=== PATIENT | male | born 1985 | race African-American/Black ===

== ENCOUNTER 2018-10-31 11:20 | Inpatient (IN) | payer OTHER ==
[2018-10-31] VITALS (8 sets, daily range): BP systolic 120–152; BP diastolic 54–108
[~2018-10-31] VITALS: Ht 177.8 cm; Wt 78.5 kg
[2018-10-31] MEDS ORDERED: IV NORMAL SALINE 1000ML BAG 1,000 ML IV ONE (12:00)
[2018-10-31] MEDS ORDERED: fentaNYL PF VIAL 100 MCG/2 ML VIAL IV ONE (12:00)
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
[2018-10-31 12:21] LABS: BASO # 0.1 x10^3/uL (0.0-0.2); BASO % 1 % (0-3); EOS # 0.1 x10^3/uL (0.0-0.7); EOS % 1 % (0-3); HEMATOCRIT 47.8 % (39.0-53.0); LYMPH # 1.7 x10^3/uL (1.0-4.8); LYMPH % 17 % (24-48); MEAN CORPUSCULAR HEMOGLOBIN 27 pg (25-35); MEAN CORPUSCULAR HGB CONC 34 g/dL (31-37); MEAN CORPUSCULAR VOLUME 81 fL (79-100); MONO # 0.8 x10^3/uL (0.0-1.1); MONO % 8 % (0-9); NEUT # 7.3 x10^3uL (1.8-7.7); NEUT % 74 % (31-73); PLATELET COUNT 272 x10^3/uL (140-400); RED BLOOD COUNT 5.91 x10^6/uL (4.30-5.70); RED CELL DISTRIBUTION WIDTH 13.9 % (11.5-14.5)
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
[2018-10-31 12:29] LABS: CALCIUM 9.5 mg/dL (8.5-10.1); CREATININE 0.9 mg/dL (0.7-1.3); GFR 116.9; POTASSIUM 3.9 mmol/L (3.5-5.1)
[2018-10-31 12:35] LABS: ALBUMIN 3.7 g/dL (3.4-5.0); ALBUMIN/GLOBULIN RATIO 0.9 (1.0-1.7); TOTAL PROTEIN 7.6 g/dL (6.4-8.2)
--- NOTE | 2018-10-31 13:29 | PDOC1 ---
History and Physical Date of Admission Date of Admission DATE: 10/31/18 TIME: 13:26 Identification/Chief Complaint Chief Complaint 33 year old male who presents with a worsening infection to his left second digit. The patient had fractured his finger and had a laceration. He then smoked K2 yesterday and tried to chew off his finger. He now has erythema and swelling to that digit with a loss of the suture material. He is unable to bend his finger and has pain extending up into his hand. xrays c/w fx and deep tissue. tendon involvement likely Past Medical History Past Medical History Past Medical History Past Medical History Past Medical History: Asthma, Hypertension Past Surgical History: No Surgical History Alcohol Use: None Drug Use: Other Social History Narrative: k2 family hx htn Chief Complaint Chief Complaint: FINGER INJURY Hepatobiliary: No pertinent hx Psych: Addictions Past Surgical History Past Surgical History: Appendectomy Family History Family History: Alcohol Abuse, Drug Abuse, Hypertension Social History Smoke: Quit ALCOHOL: none Drugs: Marijuana Current Medications Current Medications Current Medications Sodium Chloride 1,000 ml @ 1,000 mls/hr 1X ONCE IV Last administered on 10/31/18at 12:29; Start 10/31/18 at 12:00; Stop 10/31/18 at 12:59; Status DC Fentanyl Citrate (Fentanyl 2ml Vial) 50 mcg 1X ONCE IV Last administered on 10/31/18at 12:30; Start 10/31/18 at 12:00; Stop 10/31/18 at 12:01; Status DC Ampicillin Sodium/ Sulbactam Sodium 3 gm/Sodium Chloride 100 ml @ 200 mls/hr 1X ONCE IV ; Start 10/31/18 at 13:30; Stop 10/31/18 at 13:59 Ondansetron HCl (Zofran) 4 mg PRN Q8HRS PRN IV NAUSEA/VOMITING; Start 10/31/18 at 13:30; Stop 11/01/18 at 13:29 Morphine Sulfate (Morphine Sulfate) 4 mg PRN Q2HR PRN IV SEVERE PAIN; Start 10/31/18 at 13:30; Stop 11/01/18 at 13:29 Fentanyl Citrate (Fentanyl 2ml Vial) 50 mcg PRN Q1HR PRN IV SEVERE PAIN; Start 10/31/18 at 13:30; Stop 11/01/18 at 13:29 Sodium Chloride 1,000 ml @ 125 mls/hr Q8H IV ; Start 10/31/18 at 13:18; Stop 11/01/18 at 13:17; Status UNV Allergies Allergies: Coded Allergies: No Known Drug Allergies (Unverified , 10/31/18) ROS Review of System Review of Systems Review of Systems Constitutional: Denies fever or chills [] Respiratory: Denies cough or shortness of breath [] Cardiovascular: No additional information not addressed in HPI [] GI: Denies abdominal pain, nausea, vomiting, bloody stools or diarrhea [] : Denies dysuria or hematuria [] Musculoskeletal: See history of present illness Integument: Denies rash or skin lesions [] Neurologic: Denies headache, focal weakness or sensory changes [] Endocrine: Denies polyuria or polydipsia [] 14 pt systems were reviewed and found to be within normal limits, except as documented PSYCHOLOGICAL ROS: YES: Hallucinations Cardiovascular: No Chest Pain, No Palpitations, No Orthopnea, No Paroxysmal Noc. Dyspnea, No Edema, No Lt Headedness, No Other Gastrointestinal: No Nausea, No Vomiting, No Abdominal Pain, No Diarrhea, No Constipation, No Melena, No Hematochezia, No Other Musculoskeletal: Yes Joint Pain, Yes Joint Stiffness, Yes Joint Swelling Physical Exam Physical Exam Physical Exam Physical Exam Constitutional: Well developed, well nourished,mod acute distress, non-toxic appearance. [] Cardiovascular:Heart rate regular rhythm, no murmur [] Lungs & Thorax: Bilateral breath sounds clear to auscultation [] Abdomen: Bowel sounds normal, soft, no tenderness, no masses, no pulsatile masses. [] Skin: Warm, dry, no erythema, no rash. [] Back: No tenderness, no CVA tenderness. [] Extremities: tenderness to left second digit extending into his hand, extension and flexion are decreased, moderate edema and erythema, the laceration is gaping open with removal of skin from the patient biting [] Neurologic: Alert and oriented X 3, normal motor function, normal sensory function, no focal deficits noted. [] Psychologic: Affect normal, judgement poor, mood normal. [] General: Alert, Oriented X3, Cooperative, moderate distress HEENT: Atraumatic, PERRLA, EOMI, Mucous membr. moist/pink Lungs: Clear to auscultation, Normal air movement Heart: RRR, no thrills, no gallops Breasts: Not examined Abdomen: Normal bowel sounds, Soft Rectal Exam: not examined Neuro: Normal speech, Cranial nerves 3-12 NL Psych/Mental Status: Mental status NL, Mood NL Vitals Vitals Vital Signs Date Time Temp Pulse Resp B/P (MAP) Pulse Ox O2 Delivery O2 Flow Rate FiO2 10/31/18 12:30 20 99 Room Air 10/31/18 11:38 98.7 83 160/103 (122) 98.7 Labs Labs Laboratory Tests Test 10/31/18 12:05 White Blood Count 10.0 x10^3/uL (4.0-11.0) Red Blood Count 5.91 x10^6/uL (4.30-5.70) Hemoglobin 16.0 g/dL (13.0-17.5) Hematocrit 47.8 % (39.0-53.0) Mean Corpuscular Volume 81 fL (79-100) Mean Corpuscular Hemoglobin 27 pg (25-35) Mean Corpuscular Hemoglobin Concent 34 g/dL (31-37) Red Cell Distribution Width 13.9 % (11.5-14.5) Platelet Count 272 x10^3/uL (140-400) Neutrophils (%) (Auto) 74 % (31-73) Lymphocytes (%) (Auto) 17 % (24-48) Monocytes (%) (Auto) 8 % (0-9) Eosinophils (%) (Auto) 1 % (0-3) Basophils (%) (Auto) 1 % (0-3) Neutrophils # (Auto) 7.3 x10^3uL (1.8-7.7) Lymphocytes # (Auto) 1.7 x10^3/uL (1.0-4.8) Monocytes # (Auto) 0.8 x10^3/uL (0.0-1.1) Eosinophils # (Auto) 0.1 x10^3/uL (0.0-0.7) Basophils # (Auto) 0.1 x10^3/uL (0.0-0.2) Sodium Level 138 mmol/L (136-145) Potassium Level 3.9 mmol/L (3.5-5.1) Chloride Level 102 mmol/L (98-107) Carbon Dioxide Level 27 mmol/L (21-32) Anion Gap 9 (6-14) Blood Urea Nitrogen 13 mg/dL (8-26) Creatinine 0.9 mg/dL (0.7-1.3) Estimated GFR (Cockcroft-Gault) 116.9 BUN/Creatinine Ratio 14 (6-20) Glucose Level 89 mg/dL (70-99) Calcium Level 9.5 mg/dL (8.5-10.1) Total Bilirubin 1.0 mg/dL (0.2-1.0) Aspartate Amino Transf (AST/SGOT) 22 U/L (15-37) Alanine Aminotransferase (ALT/SGPT) 18 U/L (16-63) Alkaline Phosphatase 55 U/L (46-116) Total Protein 7.6 g/dL (6.4-8.2) Albumin 3.7 g/dL (3.4-5.0) Albumin/Globulin Ratio 0.9 (1.0-1.7) Laboratory Tests Test 10/31/18 12:05 White Blood Count 10.0 x10^3/uL (4.0-11.0) Red Blood Count 5.91 x10^6/uL (4.30-5.70) Hemoglobin 16.0 g/dL (13.0-17.5) Hematocrit 47.8 % (39.0-53.0) Mean Corpuscular Volume 81 fL (79-100) Mean Corpuscular Hemoglobin 27 pg (25-35) Mean Corpuscular Hemoglobin Concent 34 g/dL (31-37) Red Cell Distribution Width 13.9 % (11.5-14.5) Platelet Count 272 x10^3/uL (140-400) Neutrophils (%) (Auto) 74 % (31-73) Lymphocytes (%) (Auto) 17 % (24-48) Monocytes (%) (Auto) 8 % (0-9) Eosinophils (%) (Auto) 1 % (0-3) Basophils (%) (Auto) 1 % (0-3) Neutrophils # (Auto) 7.3 x10^3uL (1.8-7.7) Lymphocytes # (Auto) 1.7 x10^3/uL (1.0-4.8) Monocytes # (Auto) 0.8 x10^3/uL (0.0-1.1) Eosinophils # (Auto) 0.1 x10^3/uL (0.0-0.7) Basophils # (Auto) 0.1 x10^3/uL (0.0-0.2) Sodium Level 138 mmol/L (136-145) Potassium Level 3.9 mmol/L (3.5-5.1) Chloride Level 102 mmol/L (98-107) Carbon Dioxide Level 27 mmol/L (21-32) Anion Gap 9 (6-14) Blood Urea Nitrogen 13 mg/dL (8-26) Creatinine 0.9 mg/dL (0.7-1.3) Estimated GFR (Cockcroft-Gault) 116.9 BUN/Creatinine Ratio 14 (6-20) Glucose Level 89 mg/dL (70-99) Calcium Level 9.5 mg/dL (8.5-10.1) Total Bilirubin 1.0 mg/dL (0.2-1.0) Aspartate Amino Transf (AST/SGOT) 22 U/L (15-37) Alanine Aminotransferase (ALT/SGPT) 18 U/L (16-63) Alkaline Phosphatase 55 U/L (46-116) Total Protein 7.6 g/dL (6.4-8.2) Albumin 3.7 g/dL (3.4-5.0) Albumin/Globulin Ratio 0.9 (1.0-1.7) Images Images EXAM: Left hand, 3 views. HISTORY: Bite. COMPARISON: None. FINDINGS: 3 views of the left hand are obtained. There is a comminuted fracture of the distal aspect of the second distal phalanx. There is also a fracture involving the base of the second proximal phalanx with small adjacent displaced fracture fragment overlying the second metacarpal phalangeal joint. The donor site may be from the second metacarpal head. There is second phalanx soft tissue deformity likely due to a laceration. No radiodense foreign body is seen. IMPRESSION: 1. Comminuted fracture of the second distal phalanx. 2. Displaced fracture of the base of the second proximal phalanx with small fracture fragment overlying the palmar aspect of the second metatarsal phalangeal joint, possibly from the second metacarpal head. Electronically signed by: Lisseth Andrade MD (10/31/2018 12:16 PM) [place] [id number] DICTATED and SIGNED BY: LISSETH ANDRADE MD DATE: 10/31/18 1216 VTE Prophylaxis Ordered VTE Prophylaxis Devices: Yes VTE Pharmacological Prophylaxi: Yes Assessment/Plan Assessment/Plan IMPRESSION: 1. Comminuted fracture of the second distal phalanx. 2. Displaced fracture of the base of the second proximal phalanx with small fracture fragment overlying the palmar aspect of the second metatarsal phalangeal joint, possibly from the second metacarpal head. 3. ACUTE tenosynovitis plan admit ortho consult iv antibiotics ID CONSULT dvt prophylaxis td booster given at [facility] yesterday 73 min pt exam, chart review, > 50% of time spent with exam, chart review, pt care coordination at risk for loss of digit BREANNA ROCHE MD Oct 31, 2018 13:29
[2018-10-31] MEDS ORDERED: ONDANSETRON PF 4 MG/2 ML VIAL. IV PRN ×3 (13:30→13:45)
[2018-10-31] MEDS ORDERED: fentaNYL PF VIAL 100 MCG/2 ML VIAL IV PRN ×4 (13:30→13:45)
[2018-10-31] MEDS ORDERED: AMPICILLIN/SULBACTAM 3 GM in IV NORMAL SALINE 100ML 100 ML IV ONE ×2 (13:30→18:15)
[2018-10-31] MEDS ORDERED: IV RINGERS,LACTATED 1000ML 1,000 ML IV SCH ×2 (13:31)
[2018-10-31] MEDS ORDERED: HYDROmorphone 2 MG/ML VIAL IV PRN (13:45)
[2018-10-31] MEDS ORDERED: MORPHINE SULFATE 2 MG/ML VIAL. IV PRN ×2 (13:45)
[2018-10-31] MEDS ORDERED: LIDOCAINE 1% PF 2 ML VIAL. ID PRN ×2 (13:45)
[2018-10-31] MEDS ORDERED: PROCHLORPERAZINE 10 MG/2 ML VIAL. IV PRN (13:45)
[2018-10-31] MEDS: MORPHINE SULFATE 4 MG/ML VIAL. IV PRN (15:05)
[2018-10-31] MEDS: IV NORMAL SALINE 1000ML BAG 1,000 ML IV SCH ×2 (15:06→21:18)
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
[2018-10-31] MEDS ORDERED: LIDOCAINE 2% PF 5 ML VIAL. ONE (16:00)
[2018-10-31] MEDS ORDERED: PROPOFOL 20 ML IV ONE (16:00)
[2018-10-31] MEDS ORDERED: fentaNYL PF VIAL 100 MCG/2 ML VIAL ONE ×3 (16:01→19:10)
[2018-10-31] MEDS ORDERED: MIDAZOLAM HCL/PF 2 MG/2 ML VIAL. ONE (17:34)
[2018-10-31] MEDS ORDERED: ONDANSETRON PF 4 MG/2 ML VIAL. ONE (17:57)
[2018-10-31] MEDS ORDERED: DEXAMETHASONE SOD PHOS 4 MG/ML VIAL ONE (17:57)
[2018-10-31] MEDS ORDERED: KETOROLAC 30 MG/ML INJ FOR OR. INJ ONE (17:57)
[2018-10-31] MEDS ORDERED: PIPERACILLIN/TAZOBACTAM 3.375 GM in IV NORMAL SALINE 50ML 50 ML IV SCH (18:30)
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
[2018-10-31] MEDS: fentaNYL PF VIAL 100 MCG/2 ML VIAL IV PRN ×2 (19:13→19:24)
[2018-10-31] MEDS ORDERED: HYDROmorphone 2 MG/ML VIAL ONE (19:27)
[2018-10-31] MEDS ORDERED: PROCHLORPERAZINE 10 MG/2 ML VIAL. ONE (19:29)
[2018-10-31] MEDS: PROCHLORPERAZINE 10 MG/2 ML VIAL. IV PRN ×2 (19:32→19:44)
[2018-10-31] MEDS: HYDROmorphone 2 MG/ML VIAL IV PRN ×3 (19:33→20:03)
[2018-11-01] VITALS (7 sets, daily range): BP systolic 120–153; BP diastolic 78–91
[2018-11-01] MEDS: PIPERACILLIN/TAZOBACTAM 3.375 GM in IV NORMAL SALINE 50ML 50 ML IV SCH ×4 (00:14→18:00)
[2018-11-01] MEDS: IV NORMAL SALINE 1000ML BAG 1,000 ML IV SCH (04:32)
[2018-11-01] MEDS: MORPHINE SULFATE 4 MG/ML VIAL. IV PRN (06:04)
[2018-11-01] MEDS: ENOXAPARIN 40 MG/0.4 ML SYRINGE. SQ SCH (09:14)
[2018-11-01 09:43] LABS: CALCIUM 8.9 mg/dL (8.5-10.1); CREATININE 0.9 mg/dL (0.7-1.3); GFR 116.9; POTASSIUM 3.9 mmol/L (3.5-5.1)
[2018-11-01 09:44] LABS: BASO % 0 % (0-3); EOS # 0.1 x10^3/uL (0.0-0.7); EOS % 0 % (0-3); HEMATOCRIT 42.8 % (39.0-53.0); HEMOGLOBIN 14.5 g/dL (13.0-17.5); LYMPH # 1.4 x10^3/uL (1.0-4.8); LYMPH % 11 % (24-48); MEAN CORPUSCULAR HEMOGLOBIN 27 pg (25-35); MEAN CORPUSCULAR HGB CONC 34 g/dL (31-37); MEAN CORPUSCULAR VOLUME 81 fL (79-100); MONO # 0.7 x10^3/uL (0.0-1.1); MONO % 6 % (0-9); NEUT # 10.3 x10^3uL (1.8-7.7); NEUT % 82 % (31-73); PLATELET COUNT 248 x10^3/uL (140-400); RED BLOOD COUNT 5.28 x10^6/uL (4.30-5.70); RED CELL DISTRIBUTION WIDTH 13.8 % (11.5-14.5); WHITE BLOOD COUNT 12.6 x10^3/uL (4.0-11.0)
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
--- NOTE | 2018-11-01 14:16 | PDOC ---
Infectious Disease Note Vital Sign Vital Signs Vital Signs Date Time Temp Pulse Resp B/P (MAP) Pulse Ox O2 Delivery O2 Flow Rate FiO2 11/01/18 11:00 97.7 83 18 129/90 (103) 98 Room Air 97.7 10/31/18 19:00 8 Labs Lab Laboratory Tests Test 11/01/18 08:55 White Blood Count 12.6 x10^3/uL (4.0-11.0) Red Blood Count 5.28 x10^6/uL (4.30-5.70) Hemoglobin 14.5 g/dL (13.0-17.5) Hematocrit 42.8 % (39.0-53.0) Mean Corpuscular Volume 81 fL (79-100) Mean Corpuscular Hemoglobin 27 pg (25-35) Mean Corpuscular Hemoglobin Concent 34 g/dL (31-37) Red Cell Distribution Width 13.8 % (11.5-14.5) Platelet Count 248 x10^3/uL (140-400) Neutrophils (%) (Auto) 82 % (31-73) Lymphocytes (%) (Auto) 11 % (24-48) Monocytes (%) (Auto) 6 % (0-9) Eosinophils (%) (Auto) 0 % (0-3) Basophils (%) (Auto) 0 % (0-3) Neutrophils # (Auto) 10.3 x10^3uL (1.8-7.7) Lymphocytes # (Auto) 1.4 x10^3/uL (1.0-4.8) Monocytes # (Auto) 0.7 x10^3/uL (0.0-1.1) Eosinophils # (Auto) 0.1 x10^3/uL (0.0-0.7) Basophils # (Auto) 0.0 x10^3/uL (0.0-0.2) Sodium Level 139 mmol/L (136-145) Potassium Level 3.9 mmol/L (3.5-5.1) Chloride Level 104 mmol/L (98-107) Carbon Dioxide Level 29 mmol/L (21-32) Anion Gap 6 (6-14) Blood Urea Nitrogen 9 mg/dL (8-26) Creatinine 0.9 mg/dL (0.7-1.3) Estimated GFR (Cockcroft-Gault) 116.9 Glucose Level 130 mg/dL (70-99) Calcium Level 8.9 mg/dL (8.5-10.1) Micro Microbiology 10/31/18 Blood Culture - Preliminary, Resulted NO GROWTH AFTER 1 DAY Objective Assessment Left index finger infection s/p I and D Left index finger distal phalanx communited fracture Drug use HTN Plan Plan of Care zosyn check cultures supportive care KAIDEN CURIEL MD Nov 01, 2018 14:16
[2018-11-01] MEDS: oxyCODONE/APAP 5/325 1 TAB TABLET PO PRN ×2 (17:35→22:20)
--- NOTE | 2018-11-01 20:06 | NUR ---
Downtime: Head to toe assessment on paper in chart.
--- NOTE | 2018-11-01 20:06 | NUR ---
Downtime: 4mg morphine given IVP at 11:09am for 10/10 pain in left finger.
--- NOTE | 2018-11-01 20:11 | PDOC ---
PROGRESS NOTES Chief Complaint Chief Complaint 1. Comminuted, displacd, fracture of the second distal phalanx. 2. cellulitis 3. Acute tenosynovitis History of Present Illness History of Present Illness POD #1 ortho surg to finger on IV abx cont current pain control Vitals Vitals Vital Signs Date Time Temp Pulse Resp B/P (MAP) Pulse Ox O2 Delivery O2 Flow Rate FiO2 11/01/18 18:35 Room Air 11/01/18 15:00 98.4 55 18 148/79 (102) 99 98.4 10/31/18 19:00 8 Physical Exam General: Alert, Oriented X3, Cooperative, No acute distress, mild distress Heart: Regular rate Abdomen: Normal bowel sounds, Soft Extremities: No clubbing, Normal pulses Skin: No breakdown Labs LABS Laboratory Tests Test 11/01/18 08:55 White Blood Count 12.6 x10^3/uL (4.0-11.0) Red Blood Count 5.28 x10^6/uL (4.30-5.70) Hemoglobin 14.5 g/dL (13.0-17.5) Hematocrit 42.8 % (39.0-53.0) Mean Corpuscular Volume 81 fL (79-100) Mean Corpuscular Hemoglobin 27 pg (25-35) Mean Corpuscular Hemoglobin Concent 34 g/dL (31-37) Red Cell Distribution Width 13.8 % (11.5-14.5) Platelet Count 248 x10^3/uL (140-400) Neutrophils (%) (Auto) 82 % (31-73) Lymphocytes (%) (Auto) 11 % (24-48) Monocytes (%) (Auto) 6 % (0-9) Eosinophils (%) (Auto) 0 % (0-3) Basophils (%) (Auto) 0 % (0-3) Neutrophils # (Auto) 10.3 x10^3uL (1.8-7.7) Lymphocytes # (Auto) 1.4 x10^3/uL (1.0-4.8) Monocytes # (Auto) 0.7 x10^3/uL (0.0-1.1) Eosinophils # (Auto) 0.1 x10^3/uL (0.0-0.7) Basophils # (Auto) 0.0 x10^3/uL (0.0-0.2) Sodium Level 139 mmol/L (136-145) Potassium Level 3.9 mmol/L (3.5-5.1) Chloride Level 104 mmol/L (98-107) Carbon Dioxide Level 29 mmol/L (21-32) Anion Gap 6 (6-14) Blood Urea Nitrogen 9 mg/dL (8-26) Creatinine 0.9 mg/dL (0.7-1.3) Estimated GFR (Cockcroft-Gault) 116.9 Glucose Level 130 mg/dL (70-99) Calcium Level 8.9 mg/dL (8.5-10.1) Assessment and Plan Assessmemt and Plan Problems Medical Problems: (1) Finger fracture Status: Acute (2) Tenosynovitis Status: Acute Comment Review of Relevant I have reviewed the following items dev (where applicable) has been applied. Labs Laboratory Tests Test 10/31/18 12:05 11/01/18 08:55 White Blood Count 10.0 x10^3/uL (4.0-11.0) 12.6 x10^3/uL (4.0-11.0) Red Blood Count 5.91 x10^6/uL (4.30-5.70) 5.28 x10^6/uL (4.30-5.70) Hemoglobin 16.0 g/dL (13.0-17.5) 14.5 g/dL (13.0-17.5) Hematocrit 47.8 % (39.0-53.0) 42.8 % (39.0-53.0) Mean Corpuscular Volume 81 fL (79-100) 81 fL (79-100) Mean Corpuscular Hemoglobin 27 pg (25-35) 27 pg (25-35) Mean Corpuscular Hemoglobin Concent 34 g/dL (31-37) 34 g/dL (31-37) Red Cell Distribution Width 13.9 % (11.5-14.5) 13.8 % (11.5-14.5) Platelet Count 272 x10^3/uL (140-400) 248 x10^3/uL (140-400) Neutrophils (%) (Auto) 74 % (31-73) 82 % (31-73) Lymphocytes (%) (Auto) 17 % (24-48) 11 % (24-48) Monocytes (%) (Auto) 8 % (0-9) 6 % (0-9) Eosinophils (%) (Auto) 1 % (0-3) 0 % (0-3) Basophils (%) (Auto) 1 % (0-3) 0 % (0-3) Neutrophils # (Auto) 7.3 x10^3uL (1.8-7.7) 10.3 x10^3uL (1.8-7.7) Lymphocytes # (Auto) 1.7 x10^3/uL (1.0-4.8) 1.4 x10^3/uL (1.0-4.8) Monocytes # (Auto) 0.8 x10^3/uL (0.0-1.1) 0.7 x10^3/uL (0.0-1.1) Eosinophils # (Auto) 0.1 x10^3/uL (0.0-0.7) 0.1 x10^3/uL (0.0-0.7) Basophils # (Auto) 0.1 x10^3/uL (0.0-0.2) 0.0 x10^3/uL (0.0-0.2) Sodium Level 138 mmol/L (136-145) 139 mmol/L (136-145) Potassium Level 3.9 mmol/L (3.5-5.1) 3.9 mmol/L (3.5-5.1) Chloride Level 102 mmol/L (98-107) 104 mmol/L (98-107) Carbon Dioxide Level 27 mmol/L (21-32) 29 mmol/L (21-32) Anion Gap 9 (6-14) 6 (6-14) Blood Urea Nitrogen 13 mg/dL (8-26) 9 mg/dL (8-26) Creatinine 0.9 mg/dL (0.7-1.3) 0.9 mg/dL (0.7-1.3) Estimated GFR (Cockcroft-Gault) 116.9 116.9 BUN/Creatinine Ratio 14 (6-20) Glucose Level 89 mg/dL (70-99) 130 mg/dL (70-99) Calcium Level 9.5 mg/dL (8.5-10.1) 8.9 mg/dL (8.5-10.1) Total Bilirubin 1.0 mg/dL (0.2-1.0) Aspartate Amino Transf (AST/SGOT) 22 U/L (15-37) Alanine Aminotransferase (ALT/SGPT) 18 U/L (16-63) Alkaline Phosphatase 55 U/L (46-116) Total Protein 7.6 g/dL (6.4-8.2) Albumin 3.7 g/dL (3.4-5.0) Albumin/Globulin Ratio 0.9 (1.0-1.7) Laboratory Tests Test 11/01/18 08:55 White Blood Count 12.6 x10^3/uL (4.0-11.0) Red Blood Count 5.28 x10^6/uL (4.30-5.70) Hemoglobin 14.5 g/dL (13.0-17.5) Hematocrit 42.8 % (39.0-53.0) Mean Corpuscular Volume 81 fL (79-100) Mean Corpuscular Hemoglobin 27 pg (25-35) Mean Corpuscular Hemoglobin Concent 34 g/dL (31-37) Red Cell Distribution Width 13.8 % (11.5-14.5) Platelet Count 248 x10^3/uL (140-400) Neutrophils (%) (Auto) 82 % (31-73) Lymphocytes (%) (Auto) 11 % (24-48) Monocytes (%) (Auto) 6 % (0-9) Eosinophils (%) (Auto) 0 % (0-3) Basophils (%) (Auto) 0 % (0-3) Neutrophils # (Auto) 10.3 x10^3uL (1.8-7.7) Lymphocytes # (Auto) 1.4 x10^3/uL (1.0-4.8) Monocytes # (Auto) 0.7 x10^3/uL (0.0-1.1) Eosinophils # (Auto) 0.1 x10^3/uL (0.0-0.7) Basophils # (Auto) 0.0 x10^3/uL (0.0-0.2) Sodium Level 139 mmol/L (136-145) Potassium Level 3.9 mmol/L (3.5-5.1) Chloride Level 104 mmol/L (98-107) Carbon Dioxide Level 29 mmol/L (21-32) Anion Gap 6 (6-14) Blood Urea Nitrogen 9 mg/dL (8-26) Creatinine 0.9 mg/dL (0.7-1.3) Estimated GFR (Cockcroft-Gault) 116.9 Glucose Level 130 mg/dL (70-99) Calcium Level 8.9 mg/dL (8.5-10.1) Microbiology 10/31/18 Blood Culture - Preliminary, Resulted NO GROWTH AFTER 1 DAY Medications Current Medications Sodium Chloride 1,000 ml @ 1,000 mls/hr 1X ONCE IV Last administered on 10/31/18at 12:29; Start 10/31/18 at 12:00; Stop 10/31/18 at 12:59; Status DC Fentanyl Citrate (Fentanyl 2ml Vial) 50 mcg 1X ONCE IV Last administered on 10/31/18at 12:30; Start 10/31/18 at 12:00; Stop 10/31/18 at 12:01; Status DC Ampicillin Sodium/ Sulbactam Sodium 3 gm/Sodium Chloride 100 ml @ 200 mls/hr 1X ONCE IV Last administered on 10/31/18at 14:05; Start 10/31/18 at 13:30; Stop 10/31/18 at 13:59; Status DC Ondansetron HCl (Zofran) 4 mg PRN Q8HRS PRN IV NAUSEA/VOMITING; Start 10/31/18 at 13:30; Stop 11/01/18 at 13:29; Status DC Morphine Sulfate (Morphine Sulfate) 4 mg PRN Q2HR PRN IV MODERATE PAIN Last administered on 11/01/18at 06:04; Start 10/31/18 at 13:30; Stop 11/01/18 at 13:29; Status DC Fentanyl Citrate (Fentanyl 2ml Vial) 50 mcg PRN Q1HR PRN IV SEVERE PAIN; Start 10/31/18 at 13:30; Stop 11/01/18 at 13:29; Status DC Sodium Chloride 1,000 ml @ 125 mls/hr Q8H IV Last administered on 10/31/18at 15:06; Start 10/31/18 at 13:18; Stop 11/01/18 at 13:17; Status DC Ondansetron HCl (Zofran) 4 mg PRN Q6HRS PRN IV NAUSEA/VOMITING; Start 10/31/18 at 13:45; Stop 11/01/18 at 13:44; Status UNV Fentanyl Citrate (Fentanyl 2ml Vial) 25 mcg PRN Q5MIN PRN IV MILD PAIN; Start 10/31/18 at 13:45; Stop 11/01/18 at 13:44; Status UNV Fentanyl Citrate (Fentanyl 2ml Vial) 50 mcg PRN Q5MIN PRN IV MODERATE TO SEVERE PAIN; Start 10/31/18 at 13:45; Stop 11/01/18 at 13:44; Status UNV Morphine Sulfate (Morphine Sulfate) 1 mg PRN Q10MIN PRN IV SEVERE PAIN; Start 10/31/18 at 13:45; Stop 11/01/18 at 13:44; Status UNV Ringer's Solution 1,000 ml @ 30 mls/hr Q24H IV ; Start 10/31/18 at 13:31; Stop 11/01/18 at 01:30; Status UNV Lidocaine HCl (Xylocaine-Mpf 1% 2ml Vial) 2 ml 1X PRN PRN ID IV START; Start 10/31/18 at 13:45; Stop 11/01/18 at 13:44; Status UNV Hydromorphone HCl (Dilaudid) 0.5 mg PRN Q10MIN PRN IV SEV PAIN, Second choice; Start 10/31/18 at 13:45; Stop 11/01/18 at 13:44; Status UNV Prochlorperazine Edisylate (Compazine) 5 mg PACU PRN PRN IV NAUSEA, MRX1; Start 10/31/18 at 13:45; Stop 11/01/18 at 13:44; Status UNV Ondansetron HCl (Zofran) 4 mg PRN Q6HRS PRN IV NAUSEA/VOMITING; Start 10/31/18 at 13:45; Stop 11/01/18 at 13:44; Status DC Fentanyl Citrate (Fentanyl 2ml Vial) 25 mcg PRN Q5MIN PRN IV MILD PAIN; Start 10/31/18 at 13:45; Stop 11/01/18 at 13:44; Status DC Fentanyl Citrate (Fentanyl 2ml Vial) 50 mcg PRN Q5MIN PRN IV MODERATE TO SEVERE PAIN Last administered on 10/31/18at 19:24; Start 10/31/18 at 13:45; Stop 11/01/18 at 13:44; Status DC Morphine Sulfate (Morphine Sulfate) 1 mg PRN Q10MIN PRN IV SEVERE PAIN; Start 10/31/18 at 13:45; Stop 11/01/18 at 13:44; Status DC Ringer's Solution 1,000 ml @ 30 mls/hr Q24H IV ; Start 10/31/18 at 13:31; Stop 11/01/18 at 01:30; Status DC Lidocaine HCl (Xylocaine-Mpf 1% 2ml Vial) 2 ml 1X PRN PRN ID IV START; Start 10/31/18 at 13:45; Stop 11/01/18 at 13:44; Status DC Hydromorphone HCl (Dilaudid) 0.5 mg PRN Q10MIN PRN IV SEV PAIN, Second choice Last administered on 10/31/18at 20:03; Start 10/31/18 at 13:45; Stop 11/01/18 at 13:44; Status DC Prochlorperazine Edisylate (Compazine) 5 mg PACU PRN PRN IV NAUSEA, MRX1 Last administered on 10/31/18at 19:44; Start 10/31/18 at 13:45; Stop 11/01/18 at 13:44; Status DC Propofol 20 ml @ As Directed STK-MED ONCE IV ; Start 10/31/18 at 16:00; Stop 10/31/18 at 16:02; Status DC Lidocaine HCl (Lidocaine Pf 2% Vial) 5 ml STK-MED ONCE .ROUTE ; Start 10/31/18 at 16:00; Stop 10/31/18 at 16:02; Status DC Fentanyl Citrate (Fentanyl 2ml Vial) 100 mcg STK-MED ONCE .ROUTE ; Start 10/31/18 at 16:01; Stop 10/31/18 at 16:04; Status DC Midazolam HCl (Versed) 2 mg STK-MED ONCE .ROUTE ; Start 10/31/18 at 17:34; Stop 10/31/18 at 17:35; Status DC Ondansetron HCl (Zofran) 4 mg STK-MED ONCE .ROUTE ; Start 10/31/18 at 17:57; Stop 10/31/18 at 17:58; Status DC Ketorolac Tromethamine (Toradol For Or Only) 30 mg STK-MED ONCE INJ ; Start 10/31/18 at 17:57; Stop 10/31/18 at 17:58; Status DC Dexamethasone Sodium Phosphate (Decadron) 4 mg STK-MED ONCE .ROUTE ; Start 10/31/18 at 17:57; Stop 10/31/18 at 17:58; Status DC Ampicillin Sodium/ Sulbactam Sodium 3 gm/Sodium Chloride 100 ml @ 200 mls/hr 1X ONCE IV Last administered on 10/31/18at 18:19; Start 10/31/18 at 18:15; Stop 10/31/18 at 18:44; Status DC Piperacillin Sod/ Tazobactam Sod 3.375 gm/Sodium Chloride 50 ml @ 100 mls/hr Q6HRS IV ; Start 10/31/18 at 18:30; Status Cancel Enoxaparin Sodium (Lovenox 40mg Syringe) 40 mg Q24H SQ Last administered on 11/01/18at 09:14; Start 11/01/18 at 09:00 Fentanyl Citrate (Fentanyl 2ml Vial) 100 mcg STK-MED ONCE .ROUTE ; Start 10/31/18 at 18:21; Stop 10/31/18 at 18:22; Status DC Piperacillin Sod/ Tazobactam Sod 3.375 gm/Sodium Chloride 50 ml @ 100 mls/hr Q6HRS IV Last administered on 11/01/18at 18:00; Start 11/01/18 at 00:00 Fentanyl Citrate (Fentanyl 2ml Vial) 100 mcg STK-MED ONCE .ROUTE ; Start 10/31/18 at 19:10; Stop 10/31/18 at 19:11; Status DC Hydromorphone HCl (Dilaudid) 2 mg STK-MED ONCE .ROUTE ; Start 10/31/18 at 19:27; Stop 10/31/18 at 19:28; Status DC Prochlorperazine Edisylate (Compazine) 10 mg STK-MED ONCE .ROUTE ; Start 10/31/18 at 19:29; Stop 10/31/18 at 19:30; Status DC Lactobacillus Rhamnosus (Culturelle) 1 cap BID PO ; Start 11/01/18 at 21:00 Oxycodone/ Acetaminophen (Percocet 5/325) 1 tab PRN Q4HRS PRN PO PAIN Last administered on 11/01/18at 17:35; Start 11/01/18 at 17:00 Vitals/I & O Vital Sign - Last 24 Hours 10/31/18 10/31/18 10/31/18 10/31/18 20:30 21:00 21:15 21:30 Pulse 100 68 77 Resp 16 B/P (MAP) 120/54 (76) 137/86 (103) 140/77 (98) Pulse Ox 98 96 96 O2 Delivery Room Air Room Air Room Air Room Air 10/31/18 10/31/18 10/31/18 10/31/18 21:45 22:00 22:30 23:00 Pulse 61 68 68 61 B/P (MAP) 138/83 (101) 134/89 (104) 124/80 (95) 146/75 (98) Pulse Ox 97 96 96 96 O2 Delivery Room Air Room Air Room Air Room Air 11/01/18 11/01/18 11/01/18 11/01/18 00:01 03:00 07:00 11:00 Temp 97.6 98.0 98.0 97.7 97.6 98.0 98.0 97.7 Pulse 56 67 55 83 Resp 16 16 18 18 B/P (MAP) 127/83 (98) 120/78 (92) 139/81 (100) 129/90 (103) Pulse Ox 99 99 100 98 O2 Delivery Room Air Room Air Room Air Room Air 11/01/18 11/01/18 11/01/18 15:00 17:35 18:35 Temp 98.4 98.4 Pulse 55 Resp 18 B/P (MAP) 148/79 (102) Pulse Ox 99 O2 Delivery Room Air Room Air Room Air Intake and Output 10/31/18 10/31/18 11/01/18 15:00 23:00 07:00 Intake Total 1000 ml 1950 ml 350 ml Output Total 400 ml Balance 1000 ml 1550 ml 350 ml HUE ARGUETA MD Nov 01, 2018 20:11
[2018-11-01] MEDS: LACTOBACILLUS RHAMNOSUS GG 1 CAPSULE. PO SCH (22:19)
[2018-11-02] MEDS: PIPERACILLIN/TAZOBACTAM 3.375 GM in IV NORMAL SALINE 50ML 50 ML IV SCH ×4 (00:32→18:00)
[2018-11-02 03:00] VITALS: BP 142/69
[2018-11-02] MEDS: oxyCODONE/APAP 5/325 1 TAB TABLET PO PRN ×5 (04:06→22:35)
--- NOTE | 2018-11-02 05:27 | CONS ---
DATE OF CONSULTATION: 11/01/2018 REQUESTING PHYSICIAN: Dr. Garay. REASON FOR CONSULTATION: Finger infection. HISTORY OF PRESENT ILLNESS: This is a 33-year-old gentleman, who is inmate, who had left index finger injury for which suturing was done at the [facility] there. As he was on the drugs, afterwards he was chewing on his finger or playing with the stitches putting his finger in the mouth. In either case, it got infected. The patient was brought in. The patient had infected comminuted fracture with flexor tenosynovitis. The patient was taken to the OR and I and D was done. The patient has been doing much better. The patient received a dose of Unasyn and now, he is on Zosyn. He is feeling much better. The patient denies any nausea, vomiting, diarrhea, chest pain, shortness of breath, abdominal pain, urinary symptoms or bowel symptoms. PAST MEDICAL HISTORY: Positive for hypertension and asthma; otherwise, the patient's history is unremarkable. SOCIAL HISTORY: Negative for smoking. Does use drugs. 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 CURRENT MEDICATIONS: Reviewed. ALLERGIES: No known drug allergies. REVIEW OF SYSTEMS: As per HPI, all other systems reviewed are negative. PHYSICAL EXAMINATION: GENERAL: Alert, oriented gentleman, not in distress. VITAL SIGNS: Stable, afebrile. HEENT: NAD. NECK: Supple, no JVP, no lymphadenopathy. LUNGS: Clear. HEART: S1, S2 regular. ABDOMEN: Benign. EXTREMITIES: No edema or cyanosis. SKIN: Unremarkable. Left index finger, post-surgical dressing not opened. NEUROLOGIC: The patient is neurologically intact. LABORATORY DATA: White count is 12,000. Creatinine is normal. The finger x-ray reviewed. Cultures are pending. IMPRESSION: 1. Left index finger comminuted fracture. 2. Left index finger infection. 3. Left hand tenosynovitis. 4. Hypertension. 5. Asthma. 6. Leukocytosis. RECOMMENDATIONS: Continue Zosyn, supportive care. We will check the cultures and adjust. The patient is going to need long-term IV antibiotics. We will also initiate a PICC line. Thank you very much, Dr. Garay, for giving me the opportunity to participate in this patient's care. KAIDEN CURIEL MD DR: DASHA/pascale JOB#: [id number] / [id number]
[2018-11-02 07:00] VITALS: BP 136/93
[2018-11-02] MEDS: LACTOBACILLUS RHAMNOSUS GG 1 CAPSULE. PO SCH ×2 (08:47→21:40)
[2018-11-02] MEDS: ENOXAPARIN 40 MG/0.4 ML SYRINGE. SQ SCH (08:48)
--- NOTE | 2018-11-02 09:26 | RAD ---
Portable chest, 11/02/2018: HISTORY: Check PICC placement A right PICC is in place with its tip projected over the inferior aspect of the superior vena cava. The heart size is normal. The lungs are clear. There is no evidence of pleural fluid. IMPRESSION: 1. The right PICC extends into the superior vena cava. 2. No acute cardiopulmonary abnormality is detected. Electronically signed by: Ilir Aquino MD (11/02/2018 9:23 AM) [facility]
[2018-11-02 11:04] VITALS: BP 142/78
--- NOTE | 2018-11-02 11:28 | PDOC ---
Infectious Disease Note Subjective Subjective pt is feeling better ROS ROS no n/v/d/ Vital Sign Vital Signs Vital Signs Date Time Temp Pulse Resp B/P (MAP) Pulse Ox O2 Delivery O2 Flow Rate FiO2 11/02/18 11:04 98.1 61 18 142/78 (99) 99 Room Air 98.1 Physical Exam PHYSICAL EXAM GENERAL: Alert, oriented gentleman, not in distress. VITAL SIGNS: Stable, afebrile. HEENT: NAD. NECK: Supple, no JVP, no lymphadenopathy. LUNGS: Clear. HEART: S1, S2 regular. ABDOMEN: Benign. EXTREMITIES: No edema or cyanosis. SKIN: Unremarkable. Left index finger, post-surgical dressing not opened. NEUROLOGIC: The patient is neurologically intact. Labs Micro Microbiology 10/31/18 Blood Culture - Preliminary, Resulted NO GROWTH AFTER 1 DAY Objective Assessment Left index finger infection s/p I and D Left index finger distal phalanx communited fracture Drug use HTN Plan Plan of Care zosyn check cultures supportive care KAIDEN CURIEL MD November 02, 2018 11:28
--- NOTE | 2018-11-02 11:52 | PDOC ---
PROGRESS NOTES Chief Complaint Chief Complaint 0. He smoked K2 and then tried to eat his first finger 1. Comminuted, displacd, fracture of the second distal phalanx. 2. cellulitis 3. 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 VITAL SIGNS: Stable, afebrile. HEENT: NAD. NECK: Supple, no JVP, no lymphadenopathy. LUNGS: Clear. HEART: S1, S2 regular. ABDOMEN: Benign. EXTREMITIES: First finger on the left is bandaged with clean dry and intact dressing SKIN: Unremarkable. Left index finger, post-surgical dressing not opened. NEUROLOGIC: The patient is neurologically intact. General: Alert, Oriented X3, Cooperative, No acute distress, mild distress Heart: Regular rate Abdomen: Normal bowel sounds, Soft Extremities: No clubbing, Normal pulses Skin: No breakdown Review of Systems Review of Systems He complains of pain He complains of hunger Assessment and Plan Assessmemt and Plan Problems Medical Problems: (1) Finger fracture Status: Acute (2) Tenosynovitis Status: Acute 0. He smoked K2 and then tried to eat his first finger 1. Comminuted, displacd, fracture of the second distal phalanx. 2. cellulitis 3. Acute tenosynovitis Plan IV antibiotics Wound [facility] meds IV fluids when necessary narcotics Discharge disposition pending I suspect he'll be going back to the [facility] some Comment Review of Relevant I have reviewed the following items dev (where applicable) has been applied. Labs Laboratory Tests Test 10/31/18 12:05 10/31/18 15:28 11/01/18 08:55 White Blood Count 10.0 x10^3/uL (4.0-11.0) 12.6 x10^3/uL (4.0-11.0) Red Blood Count 5.91 x10^6/uL (4.30-5.70) 5.28 x10^6/uL (4.30-5.70) Hemoglobin 16.0 g/dL (13.0-17.5) 14.5 g/dL (13.0-17.5) Hematocrit 47.8 % (39.0-53.0) 42.8 % (39.0-53.0) Mean Corpuscular Volume 81 fL (79-100) 81 fL (79-100) Mean Corpuscular Hemoglobin 27 pg (25-35) 27 pg (25-35) Mean Corpuscular Hemoglobin Concent 34 g/dL (31-37) 34 g/dL (31-37) Red Cell Distribution Width 13.9 % (11.5-14.5) 13.8 % (11.5-14.5) Platelet Count 272 x10^3/uL (140-400) 248 x10^3/uL (140-400) Neutrophils (%) (Auto) 74 % (31-73) 82 % (31-73) Lymphocytes (%) (Auto) 17 % (24-48) 11 % (24-48) Monocytes (%) (Auto) 8 % (0-9) 6 % (0-9) Eosinophils (%) (Auto) 1 % (0-3) 0 % (0-3) Basophils (%) (Auto) 1 % (0-3) 0 % (0-3) Neutrophils # (Auto) 7.3 x10^3uL (1.8-7.7) 10.3 x10^3uL (1.8-7.7) Lymphocytes # (Auto) 1.7 x10^3/uL (1.0-4.8) 1.4 x10^3/uL (1.0-4.8) Monocytes # (Auto) 0.8 x10^3/uL (0.0-1.1) 0.7 x10^3/uL (0.0-1.1) Eosinophils # (Auto) 0.1 x10^3/uL (0.0-0.7) 0.1 x10^3/uL (0.0-0.7) Basophils # (Auto) 0.1 x10^3/uL (0.0-0.2) 0.0 x10^3/uL (0.0-0.2) Sodium Level 138 mmol/L (136-145) 139 mmol/L (136-145) Potassium Level 3.9 mmol/L (3.5-5.1) 3.9 mmol/L (3.5-5.1) Chloride Level 102 mmol/L (98-107) 104 mmol/L (98-107) Carbon Dioxide Level 27 mmol/L (21-32) 29 mmol/L (21-32) Anion Gap 9 (6-14) 6 (6-14) Blood Urea Nitrogen 13 mg/dL (8-26) 9 mg/dL (8-26) Creatinine 0.9 mg/dL (0.7-1.3) 0.9 mg/dL (0.7-1.3) Estimated GFR (Cockcroft-Gault) 116.9 116.9 BUN/Creatinine Ratio 14 (6-20) Glucose Level 89 mg/dL (70-99) 130 mg/dL (70-99) Calcium Level 9.5 mg/dL (8.5-10.1) 8.9 mg/dL (8.5-10.1) Total Bilirubin 1.0 mg/dL (0.2-1.0) Aspartate Amino Transf (AST/SGOT) 22 U/L (15-37) Alanine Aminotransferase (ALT/SGPT) 18 U/L (16-63) Alkaline Phosphatase 55 U/L (46-116) Total Protein 7.6 g/dL (6.4-8.2) Albumin 3.7 g/dL (3.4-5.0) Albumin/Globulin Ratio 0.9 (1.0-1.7) Nasal Screen MRSA (PCR) Negative (Negative) Microbiology 10/31/18 Blood Culture - Preliminary, Resulted NO GROWTH AFTER 1 DAY Medications Current Medications Sodium Chloride 1,000 ml @ 1,000 mls/hr 1X ONCE IV Last administered on 10/31/18at 12:29; Start 10/31/18 at 12:00; Stop 10/31/18 at 12:59; Status DC Fentanyl Citrate (Fentanyl 2ml Vial) 50 mcg 1X ONCE IV Last administered on 10/31/18at 12:30; Start 10/31/18 at 12:00; Stop 10/31/18 at 12:01; Status DC Ampicillin Sodium/ Sulbactam Sodium 3 gm/Sodium Chloride 100 ml @ 200 mls/hr 1X ONCE IV Last administered on 10/31/18at 14:05; Start 10/31/18 at 13:30; Stop 10/31/18 at 13:59; Status DC Ondansetron HCl (Zofran) 4 mg PRN Q8HRS PRN IV NAUSEA/VOMITING; Start 10/31/18 at 13:30; Stop 11/01/18 at 13:29; Status DC Morphine Sulfate (Morphine Sulfate) 4 mg PRN Q2HR PRN IV MODERATE PAIN Last administered on 11/01/18at 06:04; Start 10/31/18 at 13:30; Stop 11/01/18 at 13:29; Status DC Fentanyl Citrate (Fentanyl 2ml Vial) 50 mcg PRN Q1HR PRN IV SEVERE PAIN; Start 10/31/18 at 13:30; Stop 11/01/18 at 13:29; Status DC Sodium Chloride 1,000 ml @ 125 mls/hr Q8H IV Last administered on 10/31/18at 15:06; Start 10/31/18 at 13:18; Stop 11/01/18 at 13:17; Status DC Ondansetron HCl (Zofran) 4 mg PRN Q6HRS PRN IV NAUSEA/VOMITING; Start 10/31/18 at 13:45; Stop 11/01/18 at 13:44; Status UNV Fentanyl Citrate (Fentanyl 2ml Vial) 25 mcg PRN Q5MIN PRN IV MILD PAIN; Start 10/31/18 at 13:45; Stop 11/01/18 at 13:44; Status UNV Fentanyl Citrate (Fentanyl 2ml Vial) 50 mcg PRN Q5MIN PRN IV MODERATE TO SEVERE PAIN; Start 10/31/18 at 13:45; Stop 11/01/18 at 13:44; Status UNV Morphine Sulfate (Morphine Sulfate) 1 mg PRN Q10MIN PRN IV SEVERE PAIN; Start 10/31/18 at 13:45; Stop 11/01/18 at 13:44; Status UNV Ringer's Solution 1,000 ml @ 30 mls/hr Q24H IV ; Start 10/31/18 at 13:31; Stop 11/01/18 at 01:30; Status UNV Lidocaine HCl (Xylocaine-Mpf 1% 2ml Vial) 2 ml 1X PRN PRN ID IV START; Start 10/31/18 at 13:45; Stop 11/01/18 at 13:44; Status UNV Hydromorphone HCl (Dilaudid) 0.5 mg PRN Q10MIN PRN IV SEV PAIN, Second choice; Start 10/31/18 at 13:45; Stop 11/01/18 at 13:44; Status UNV Prochlorperazine Edisylate (Compazine) 5 mg PACU PRN PRN IV NAUSEA, MRX1; Start 10/31/18 at 13:45; Stop 11/01/18 at 13:44; Status UNV Ondansetron HCl (Zofran) 4 mg PRN Q6HRS PRN IV NAUSEA/VOMITING; Start 10/31/18 at 13:45; Stop 11/01/18 at 13:44; Status DC Fentanyl Citrate (Fentanyl 2ml Vial) 25 mcg PRN Q5MIN PRN IV MILD PAIN; Start 10/31/18 at 13:45; Stop 11/01/18 at 13:44; Status DC Fentanyl Citrate (Fentanyl 2ml Vial) 50 mcg PRN Q5MIN PRN IV MODERATE TO SEVERE PAIN Last administered on 10/31/18at 19:24; Start 10/31/18 at 13:45; Stop 11/01/18 at 13:44; Status DC Morphine Sulfate (Morphine Sulfate) 1 mg PRN Q10MIN PRN IV SEVERE PAIN; Start 10/31/18 at 13:45; Stop 11/01/18 at 13:44; Status DC Ringer's Solution 1,000 ml @ 30 mls/hr Q24H IV ; Start 10/31/18 at 13:31; Stop 11/01/18 at 01:30; Status DC Lidocaine HCl (Xylocaine-Mpf 1% 2ml Vial) 2 ml 1X PRN PRN ID IV START; Start 10/31/18 at 13:45; Stop 11/01/18 at 13:44; Status DC Hydromorphone HCl (Dilaudid) 0.5 mg PRN Q10MIN PRN IV SEV PAIN, Second choice Last administered on 10/31/18at 20:03; Start 10/31/18 at 13:45; Stop 11/01/18 at 13:44; Status DC Prochlorperazine Edisylate (Compazine) 5 mg PACU PRN PRN IV NAUSEA, MRX1 Last administered on 10/31/18at 19:44; Start 10/31/18 at 13:45; Stop 11/01/18 at 13:44; Status DC Propofol 20 ml @ As Directed STK-MED ONCE IV ; Start 10/31/18 at 16:00; Stop 10/31/18 at 16:02; Status DC Lidocaine HCl (Lidocaine Pf 2% Vial) 5 ml STK-MED ONCE .ROUTE ; Start 10/31/18 at 16:00; Stop 10/31/18 at 16:02; Status DC Fentanyl Citrate (Fentanyl 2ml Vial) 100 mcg STK-MED ONCE .ROUTE ; Start 10/31/18 at 16:01; Stop 10/31/18 at 16:04; Status DC Midazolam HCl (Versed) 2 mg STK-MED ONCE .ROUTE ; Start 10/31/18 at 17:34; Stop 10/31/18 at 17:35; Status DC Ondansetron HCl (Zofran) 4 mg STK-MED ONCE .ROUTE ; Start 10/31/18 at 17:57; Stop 10/31/18 at 17:58; Status DC Ketorolac Tromethamine (Toradol For Or Only) 30 mg STK-MED ONCE INJ ; Start 10/31/18 at 17:57; Stop 10/31/18 at 17:58; Status DC Dexamethasone Sodium Phosphate (Decadron) 4 mg STK-MED ONCE .ROUTE ; Start 10/31/18 at 17:57; Stop 10/31/18 at 17:58; Status DC Ampicillin Sodium/ Sulbactam Sodium 3 gm/Sodium Chloride 100 ml @ 200 mls/hr 1X ONCE IV Last administered on 10/31/18at 18:19; Start 10/31/18 at 18:15; Stop 10/31/18 at 18:44; Status DC Piperacillin Sod/ Tazobactam Sod 3.375 gm/Sodium Chloride 50 ml @ 100 mls/hr Q6HRS IV ; Start 10/31/18 at 18:30; Status Cancel Enoxaparin Sodium (Lovenox 40mg Syringe) 40 mg Q24H SQ Last administered on 11/02/18at 08:48; Start 11/01/18 at 09:00 Fentanyl Citrate (Fentanyl 2ml Vial) 100 mcg STK-MED ONCE .ROUTE ; Start 10/31/18 at 18:21; Stop 10/31/18 at 18:22; Status DC Piperacillin Sod/ Tazobactam Sod 3.375 gm/Sodium Chloride 50 ml @ 100 mls/hr Q6HRS IV Last administered on 11/02/18at 05:48; Start 11/01/18 at 00:00 Fentanyl Citrate (Fentanyl 2ml Vial) 100 mcg STK-MED ONCE .ROUTE ; Start 10/31/18 at 19:10; Stop 10/31/18 at 19:11; Status DC Hydromorphone HCl (Dilaudid) 2 mg STK-MED ONCE .ROUTE ; Start 10/31/18 at 19:27; Stop 10/31/18 at 19:28; Status DC Prochlorperazine Edisylate (Compazine) 10 mg STK-MED ONCE .ROUTE ; Start 10/31/18 at 19:29; Stop 10/31/18 at 19:30; Status DC Lactobacillus Rhamnosus (Culturelle) 1 cap BID PO Last administered on 11/02/18at 08:47; Start 11/01/18 at 21:00 Oxycodone/ Acetaminophen (Percocet 5/325) 1 tab PRN Q4HRS PRN PO PAIN Last administered on 11/02/18at 08:48; Start 11/01/18 at 17:00 Vitals/I & O Vital Sign - Last 24 Hours 11/01/18 11/01/18 11/01/18 11/01/18 15:00 17:35 19:00 20:00 Temp 98.4 98.3 98.4 98.3 Pulse 55 73 Resp 18 18 B/P (MAP) 148/79 (102) 153/91 (111) Pulse Ox 99 99 O2 Delivery Room Air Room Air Room Air Room Air 11/01/18 11/01/18 11/02/18 11/02/18 22:20 23:00 03:00 04:06 Temp 98.4 98.0 98.4 98.0 Pulse 80 94 Resp 18 18 B/P (MAP) 134/79 (97) 142/69 (93) Pulse Ox 100 97 O2 Delivery Room Air Room Air Room Air Room Air 11/02/18 11/02/18 11/02/18 11/02/18 07:00 08:00 09:41 11:04 Temp 98.0 98.1 98.0 98.1 Pulse 54 61 Resp 18 18 B/P (MAP) 136/93 (107) 142/78 (99) Pulse Ox 99 99 O2 Delivery Room Air Room Air Room Air Room Air Intake and Output 11/01/18 11/01/18 11/02/18 15:00 23:00 07:00 Intake Total 480 ml 510 ml 150 ml Output Total 700 ml 850 ml Balance -220 ml -340 ml 150 ml KATHERINE TERAN III DO November 02, 2018 11:52
--- NOTE | 2018-11-02 12:26 | PDOC ---
Infectious Disease Note Subjective Subjective pt is feeling good ROS ROS no n/v/d/sob Vital Sign Vital Signs Vital Signs Date Time Temp Pulse Resp B/P (MAP) Pulse Ox O2 Delivery O2 Flow Rate FiO2 11/02/18 11:04 98.1 61 18 142/78 (99) 99 Room Air 98.1 Physical Exam PHYSICAL EXAM GENERAL: Alert, oriented gentleman, not in distress. VITAL SIGNS: Stable, afebrile. HEENT: NAD. NECK: Supple, no JVP, no lymphadenopathy. LUNGS: Clear. HEART: S1, S2 regular. ABDOMEN: Benign. EXTREMITIES: First finger on the left is bandaged with clean dry and intact dressing SKIN: Unremarkable. Left index finger, post-surgical dressing not opened. NEUROLOGIC: The patient is neurologically intact. Labs Micro finger culture pending Microbiology 10/31/18 Blood Culture - Preliminary, Resulted NO GROWTH AFTER 1 DAY Objective Assessment Left index finger infection s/p I and D Left index finger distal phalanx communited fracture Drug use HTN Plan Plan of Care zosyn check cultures supportive care KAIDEN CURIEL MD November 02, 2018 12:26
[2018-11-02 15:00] VITALS: BP 165/116
--- NOTE | 2018-11-02 16:00 | NUR ---
Wound care: Patient seen per wound care consult. Patient is s/p debridement on 10/31/[address] Albrecht. Dressing removed and wounds cleansed, assessed, measured, and pictured. There are 3 open incisions from surgical debridement, left anterior index finger and left sun proximal index finger and left palm and one abrasion/injury to left sun distal index finger. All 3 sites repacked with 1/4 inch packing and gauze pads, kerlix, and lakisha wrap applied. Then left sun was dressed with xeroform gauze, gauze pads, and kerlix. patient in significant amount of pain during dressing change. Patient had received pain medication prior to dressing change. Guards at bedside. Will discuss with Dr. Albrecht the frequency of dressing changes and if daily patient would likely benefit from something more for pain for dressing changes. Wound care will follow patient. Bed lowered and fan given to patient per request.
[2018-11-02 19:00] VITALS: BP 157/90
[2018-11-02 22:44] VITALS: BP 151/93
[2018-11-03] MEDS: PIPERACILLIN/TAZOBACTAM 3.375 GM in IV NORMAL SALINE 50ML 50 ML IV SCH ×4 (00:21→17:30)
[2018-11-03 03:00] VITALS: BP 147/89
[2018-11-03] MEDS: oxyCODONE/APAP 5/325 1 TAB TABLET PO PRN ×4 (06:04→20:31)
[2018-11-03 07:00] VITALS: BP 125/86
[2018-11-03] MEDS: LACTOBACILLUS RHAMNOSUS GG 1 CAPSULE. PO SCH ×2 (09:01→20:31)
[2018-11-03] MEDS: ENOXAPARIN 40 MG/0.4 ML SYRINGE. SQ SCH (09:02)
--- NOTE | 2018-11-03 09:56 | PDOC ---
Infectious Disease Note Subjective Subjective pt is feeling better ROS ROS no n/v/d/sob Vital Sign Vital Signs Vital Signs Date Time Temp Pulse Resp B/P (MAP) Pulse Ox O2 Delivery O2 Flow Rate FiO2 11/03/18 07:30 Room Air 8.0 11/03/18 07:04 97 11/03/18 07:00 97.7 56 18 125/86 (99) 97.7 Physical Exam PHYSICAL EXAM GENERAL: Alert, oriented gentleman, not in distress. VITAL SIGNS: Stable, afebrile. HEENT: NAD. NECK: Supple, no JVP, no lymphadenopathy. LUNGS: Clear. HEART: S1, S2 regular. ABDOMEN: Benign. EXTREMITIES: First finger on the left is bandaged with clean dry and intact dressing SKIN: Unremarkable. Left index finger, post-surgical dressing not opened. NEUROLOGIC: The patient is neurologically intact. Labs Micro finger culture pending Microbiology 10/31/18 Blood Culture - Preliminary, Resulted NO GROWTH AFTER 1 DAY Objective Assessment Left index finger infection s/p I and D Left index finger distal phalanx communited fracture Drug use HTN Plan Plan of Care zosyn check cultures supportive care KAIDEN CURIEL MD November 03, 2018 09:56
--- NOTE | 2018-11-03 10:04 | PDOC ---
PROGRESS NOTES Chief Complaint Chief Complaint IMPRESSION smoked K2 and then tried to eat his first finger, IE TOXIC ENCEPHALOPATHY 1. Comminuted, displacd, fracture of the second distal phalanx. 2. cellulitis 3. Acute tenosynovitis 4..Left index finger comminuted fracture. 5. Left index finger infection. 6. Left hand tenosynovitis. 7. Hypertension. 8. Asthma. 9. Leukocytosis. 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 VITAL SIGNS: Stable, afebrile. HEENT: NAD. NECK: Supple, no JVP, no lymphadenopathy. LUNGS: Clear. HEART: S1, S2 regular. ABDOMEN: Benign. EXTREMITIES: First finger on the left is bandaged with clean dry and intact dressing SKIN: Unremarkable. Left index finger, post-surgical dressing not opened. NEUROLOGIC: The patient is neurologically intact. General: Alert, Oriented X3, Cooperative, No acute distress, mild distress Heart: Regular rate, Normal S1, Normal S2, No murmurs Lungs: Clear Abdomen: Normal bowel sounds, Soft Extremities: No clubbing, No cyanosis, Normal pulses Skin: No breakdown Labs LABS Portable chest, 11/02/2018: HISTORY: Check PICC placement A right PICC is in place with its tip projected over the inferior aspect of the superior vena cava. The heart size is normal. The lungs are clear. There is no evidence of pleural fluid. IMPRESSION: 1. The right PICC extends into the superior vena cava. 2. No acute cardiopulmonary abnormality is detected. Electronically signed by: Ilir Aquino MD (11/02/2018 9:23 AM) [facility] DICTATED and SIGNED BY: ILIR AQUINO MD DATE: 11/02/18 0923 Operative Note Operative Note Date of surgery: 10/31/2018 Preoperative diagnosis: Flexor tenosynovitis left index finger, open distal phalanx fracture left index finger Postoperative diagnosis: Same Operative procedure: Irrigation debridement of left index flexor tendon sheath and open treatment of open distal phalanx fracture Surgeon: Trena Anesthesia: Gen. Estimated blood loss: 50 mL Complications: None Operative indications: Please see my detailed preoperative orthopedic consultation for operative indications and note that I was concerned for potential rapid spread of infection in his tendon sheath as well as throughout the finger area dye explained the seriousness of human bite wounds and the fact that in addition to surgery and intravenous antibiotics he may need to undergo further surgical intervention depending on his response and in the worse case scenario if this is not controlled well he can end up losing a lot of function of his finger or his hand. He agrees to proceed with surgical evaluation and treatment Assessment and Plan Assessmemt and Plan Problems Medical Problems: (1) Finger fracture Status: Acute (2) Tenosynovitis Status: Acute Comment Review of Relevant I have reviewed the following items dev (where applicable) has been applied. Labs Microbiology 10/31/18 Blood Culture - Preliminary, Resulted NO GROWTH AFTER 2 DAYS Medications Current Medications Sodium Chloride 1,000 ml @ 1,000 mls/hr 1X ONCE IV Last administered on 10/31/18at 12:29; Start 10/31/18 at 12:00; Stop 10/31/18 at 12:59; Status DC Fentanyl Citrate (Fentanyl 2ml Vial) 50 mcg 1X ONCE IV Last administered on 10/31/18at 12:30; Start 10/31/18 at 12:00; Stop 10/31/18 at 12:01; Status DC Ampicillin Sodium/ Sulbactam Sodium 3 gm/Sodium Chloride 100 ml @ 200 mls/hr 1X ONCE IV Last administered on 10/31/18at 14:05; Start 10/31/18 at 13:30; Stop 10/31/18 at 13:59; Status DC Ondansetron HCl (Zofran) 4 mg PRN Q8HRS PRN IV NAUSEA/VOMITING; Start 10/31/18 at 13:30; Stop 11/01/18 at 13:29; Status DC Morphine Sulfate (Morphine Sulfate) 4 mg PRN Q2HR PRN IV MODERATE PAIN Last administered on 11/01/18at 06:04; Start 10/31/18 at 13:30; Stop 11/01/18 at 13:29; Status DC Fentanyl Citrate (Fentanyl 2ml Vial) 50 mcg PRN Q1HR PRN IV SEVERE PAIN; Start 10/31/18 at 13:30; Stop 11/01/18 at 13:29; Status DC Sodium Chloride 1,000 ml @ 125 mls/hr Q8H IV Last administered on 10/31/18at 15:06; Start 10/31/18 at 13:18; Stop 11/01/18 at 13:17; Status DC Ondansetron HCl (Zofran) 4 mg PRN Q6HRS PRN IV NAUSEA/VOMITING; Start 10/31/18 at 13:45; Stop 11/01/18 at 13:44; Status UNV Fentanyl Citrate (Fentanyl 2ml Vial) 25 mcg PRN Q5MIN PRN IV MILD PAIN; Start 10/31/18 at 13:45; Stop 11/01/18 at 13:44; Status UNV Fentanyl Citrate (Fentanyl 2ml Vial) 50 mcg PRN Q5MIN PRN IV MODERATE TO SEVERE PAIN; Start 10/31/18 at 13:45; Stop 11/01/18 at 13:44; Status UNV Morphine Sulfate (Morphine Sulfate) 1 mg PRN Q10MIN PRN IV SEVERE PAIN; Start 10/31/18 at 13:45; Stop 11/01/18 at 13:44; Status UNV Ringer's Solution 1,000 ml @ 30 mls/hr Q24H IV ; Start 10/31/18 at 13:31; Stop 11/01/18 at 01:30; Status UNV Lidocaine HCl (Xylocaine-Mpf 1% 2ml Vial) 2 ml 1X PRN PRN ID IV START; Start 10/31/18 at 13:45; Stop 11/01/18 at 13:44; Status UNV Hydromorphone HCl (Dilaudid) 0.5 mg PRN Q10MIN PRN IV SEV PAIN, Second choice; Start 10/31/18 at 13:45; Stop 11/01/18 at 13:44; Status UNV Prochlorperazine Edisylate (Compazine) 5 mg PACU PRN PRN IV NAUSEA, MRX1; Start 10/31/18 at 13:45; Stop 11/01/18 at 13:44; Status UNV Ondansetron HCl (Zofran) 4 mg PRN Q6HRS PRN IV NAUSEA/VOMITING; Start 10/31/18 at 13:45; Stop 11/01/18 at 13:44; Status DC Fentanyl Citrate (Fentanyl 2ml Vial) 25 mcg PRN Q5MIN PRN IV MILD PAIN; Start 10/31/18 at 13:45; Stop 11/01/18 at 13:44; Status DC Fentanyl Citrate (Fentanyl 2ml Vial) 50 mcg PRN Q5MIN PRN IV MODERATE TO SEVERE PAIN Last administered on 10/31/18at 19:24; Start 10/31/18 at 13:45; Stop 11/01/18 at 13:44; Status DC Morphine Sulfate (Morphine Sulfate) 1 mg PRN Q10MIN PRN IV SEVERE PAIN; Start 10/31/18 at 13:45; Stop 11/01/18 at 13:44; Status DC Ringer's Solution 1,000 ml @ 30 mls/hr Q24H IV ; Start 10/31/18 at 13:31; Stop 11/01/18 at 01:30; Status DC Lidocaine HCl (Xylocaine-Mpf 1% 2ml Vial) 2 ml 1X PRN PRN ID IV START; Start 10/31/18 at 13:45; Stop 11/01/18 at 13:44; Status DC Hydromorphone HCl (Dilaudid) 0.5 mg PRN Q10MIN PRN IV SEV PAIN, Second choice Last administered on 10/31/18at 20:03; Start 10/31/18 at 13:45; Stop 11/01/18 at 13:44; Status DC Prochlorperazine Edisylate (Compazine) 5 mg PACU PRN PRN IV NAUSEA, MRX1 Last administered on 10/31/18at 19:44; Start 10/31/18 at 13:45; Stop 11/01/18 at 13:44; Status DC Propofol 20 ml @ As Directed STK-MED ONCE IV ; Start 10/31/18 at 16:00; Stop 10/31/18 at 16:02; Status DC Lidocaine HCl (Lidocaine Pf 2% Vial) 5 ml STK-MED ONCE .ROUTE ; Start 10/31/18 at 16:00; Stop 10/31/18 at 16:02; Status DC Fentanyl Citrate (Fentanyl 2ml Vial) 100 mcg STK-MED ONCE .ROUTE ; Start 10/31/18 at 16:01; Stop 10/31/18 at 16:04; Status DC Midazolam HCl (Versed) 2 mg STK-MED ONCE .ROUTE ; Start 10/31/18 at 17:34; Stop 10/31/18 at 17:35; Status DC Ondansetron HCl (Zofran) 4 mg STK-MED ONCE .ROUTE ; Start 10/31/18 at 17:57; Stop 10/31/18 at 17:58; Status DC Ketorolac Tromethamine (Toradol For Or Only) 30 mg STK-MED ONCE INJ ; Start 10/31/18 at 17:57; Stop 10/31/18 at 17:58; Status DC Dexamethasone Sodium Phosphate (Decadron) 4 mg STK-MED ONCE .ROUTE ; Start 10/31/18 at 17:57; Stop 10/31/18 at 17:58; Status DC Ampicillin Sodium/ Sulbactam Sodium 3 gm/Sodium Chloride 100 ml @ 200 mls/hr 1X ONCE IV Last administered on 10/31/18at 18:19; Start 10/31/18 at 18:15; Stop 10/31/18 at 18:44; Status DC Piperacillin Sod/ Tazobactam Sod 3.375 gm/Sodium Chloride 50 ml @ 100 mls/hr Q6HRS IV ; Start 10/31/18 at 18:30; Status Cancel Enoxaparin Sodium (Lovenox 40mg Syringe) 40 mg Q24H SQ Last administered on 11/03/18at 09:02; Start 11/01/18 at 09:00 Fentanyl Citrate (Fentanyl 2ml Vial) 100 mcg STK-MED ONCE .ROUTE ; Start 10/31/18 at 18:21; Stop 10/31/18 at 18:22; Status DC Piperacillin Sod/ Tazobactam Sod 3.375 gm/Sodium Chloride 50 ml @ 100 mls/hr Q6HRS IV Last administered on 11/03/18at 05:56; Start 11/01/18 at 00:00 Fentanyl Citrate (Fentanyl 2ml Vial) 100 mcg STK-MED ONCE .ROUTE ; Start 10/31/18 at 19:10; Stop 10/31/18 at 19:11; Status DC Hydromorphone HCl (Dilaudid) 2 mg STK-MED ONCE .ROUTE ; Start 10/31/18 at 19:27; Stop 10/31/18 at 19:28; Status DC Prochlorperazine Edisylate (Compazine) 10 mg STK-MED ONCE .ROUTE ; Start 10/31/18 at 19:29; Stop 10/31/18 at 19:30; Status DC Lactobacillus Rhamnosus (Culturelle) 1 cap BID PO Last administered on 11/03/18at 09:01; Start 11/01/18 at 21:00 Oxycodone/ Acetaminophen (Percocet 5/325) 1 tab PRN Q4HRS PRN PO PAIN Last administered on 11/03/18at 06:04; Start 11/01/18 at 17:00 Vitals/I & O Vital Sign - Last 24 Hours 11/02/18 11/02/18 11/02/18 11/02/18 11:04 13:58 15:00 18:03 Temp 98.1 98.5 98.1 98.5 Pulse 61 65 Resp 18 18 B/P (MAP) 142/78 (99) 165/116 (132) Pulse Ox 99 98 O2 Delivery Room Air Room Air Room Air Room Air 11/02/18 11/02/18 11/02/18 11/02/18 19:00 20:15 22:35 22:44 Temp 98.3 98.4 98.3 98.4 Pulse 62 58 Resp 18 18 B/P (MAP) 157/90 (112) 151/93 (112) Pulse Ox 99 98 99 O2 Delivery Room Air Room Air Room Air Room Air O2 Flow Rate 8.0 11/03/18 11/03/18 11/03/18 11/03/18 03:00 06:04 07:00 07:04 Temp 97.9 97.7 97.9 97.7 Pulse 53 56 Resp 18 18 B/P (MAP) 147/89 (108) 125/86 (99) Pulse Ox 97 97 100 97 O2 Delivery Room Air Room Air Room Air Room Air O2 Flow Rate 8.0 8.0 11/03/18 07:30 O2 Delivery Room Air O2 Flow Rate 8.0 Intake and Output 11/02/18 11/02/1811/03/19 14:59 22:59 06:59 Intake Total 500 ml Balance 500 ml BREANNA ROCHE MD November 03, 2018 10:04
[2018-11-03 11:06] VITALS: BP 143/84
[2018-11-03 15:03] VITALS: BP 144/87
[2018-11-03 19:00] VITALS: BP 153/98
[2018-11-03 23:00] VITALS: BP 143/83
[2018-11-04] MEDS: PIPERACILLIN/TAZOBACTAM 3.375 GM in IV NORMAL SALINE 50ML 50 ML IV SCH ×5 (01:01→23:31)
[2018-11-04] MEDS: oxyCODONE/APAP 10/325 1 TAB TABLET PO PRN ×6 (01:02→23:32)
[2018-11-04 03:00] VITALS: BP 141/108
[2018-11-04 07:00] VITALS: BP 123/88
[2018-11-04] MEDS: LACTOBACILLUS RHAMNOSUS GG 1 CAPSULE. PO SCH ×2 (09:25→20:49)
[2018-11-04] MEDS: ENOXAPARIN 40 MG/0.4 ML SYRINGE. SQ SCH (09:26)
--- NOTE | 2018-11-04 10:14 | PDOC ---
PROGRESS NOTES Chief Complaint Chief Complaint IMPRESSION smoked K2 and then tried to eat his first finger, IE TOXIC ENCEPHALOPATHY 1. Comminuted, displacd, fracture of the second distal phalanx. 2. cellulitis 3. Acute tenosynovitis 4..Left index finger comminuted fracture. 5. Left index finger infection. 6. Left hand tenosynovitis. 7. Hypertension. 8. Asthma. 9. Leukocytosis. History of Present Illness History of Present Illness Patient was seen and examined program officer's are present Patient is shackled smoked some K2 and then tried to eat his first finger POD #3 ortho surg to finger on IV abx cont current pain control pod # 3 38 min pt exam, chart review., > 50% of time spent with exam, chart review, pt care coordination Vitals Vitals Vital Signs Date Time Temp Pulse Resp B/P (MAP) Pulse Ox O2 Delivery O2 Flow Rate FiO2 11/04/18 07:00 97.9 65 18 123/88 (100) 98 Room Air 97.9 11/03/18 07:30 8.0 Physical Exam Physical Exam GENERAL: Alert, oriented gentleman, not in distress. VITAL SIGNS: Stable, afebrile. HEENT: NAD. NECK: Supple, no JVP, no lymphadenopathy. LUNGS: Clear. HEART: S1, S2 regular. ABDOMEN: Benign. EXTREMITIES: First finger on the left is bandaged with clean dry and intact dressing SKIN: Unremarkable. Left index finger, post-surgical dressing not opened. NEUROLOGIC: The patient is neurologically intact. General: Alert, Oriented X3, Cooperative, No acute distress, mild distress Heart: Regular rate, Normal S1, Normal S2, No murmurs Lungs: Clear Abdomen: Normal bowel sounds, Soft, No tenderness Extremities: No clubbing, No cyanosis, Normal pulses Skin: No breakdown Assessment and Plan Assessmemt and Plan Problems Medical Problems: (1) Finger fracture Status: Acute (2) Tenosynovitis Status: Acute Comment Review of Relevant I have reviewed the following items dev (where applicable) has been applied. Labs Microbiology 10/31/18 Blood Culture - Preliminary, Resulted NO GROWTH AFTER 3 DAYS 10/31/18 Anaerobic/Aerobic Culture, Resulted Pending 10/31/18 Anaerobic Culture Result 1 (NANETTE), Resulted Pending 10/31/18 Aerobic Culture - Preliminary, Resulted 10/31/18 Aerobic Culture Result 1 (NANETTE) - Preliminary, Resulted 10/31/18 Aerobic Culture Result 2 (NANETTE) - Preliminary, Resulted 10/31/18 Aerobic Culture Result 3 (NANETTE) - Preliminary, Resulted 10/31/18 Gram Stain, Resulted Pending 10/31/18 Gram Stain Result 1 (NANETTE), Resulted Pending Medications Current Medications Sodium Chloride 1,000 ml @ 1,000 mls/hr 1X ONCE IV Last administered on 10/31/18at 12:29; Start 10/31/18 at 12:00; Stop 10/31/18 at 12:59; Status DC Fentanyl Citrate (Fentanyl 2ml Vial) 50 mcg 1X ONCE IV Last administered on 10/31/18at 12:30; Start 10/31/18 at 12:00; Stop 10/31/18 at 12:01; Status DC Ampicillin Sodium/ Sulbactam Sodium 3 gm/Sodium Chloride 100 ml @ 200 mls/hr 1X ONCE IV Last administered on 10/31/18at 14:05; Start 10/31/18 at 13:30; Stop 10/31/18 at 13:59; Status DC Ondansetron HCl (Zofran) 4 mg PRN Q8HRS PRN IV NAUSEA/VOMITING; Start 10/31/18 at 13:30; Stop 11/01/18 at 13:29; Status DC Morphine Sulfate (Morphine Sulfate) 4 mg PRN Q2HR PRN IV MODERATE PAIN Last administered on 11/01/18at 06:04; Start 10/31/18 at 13:30; Stop 11/01/18 at 13:29; Status DC Fentanyl Citrate (Fentanyl 2ml Vial) 50 mcg PRN Q1HR PRN IV SEVERE PAIN; Start 10/31/18 at 13:30; Stop 11/01/18 at 13:29; Status DC Sodium Chloride 1,000 ml @ 125 mls/hr Q8H IV Last administered on 10/31/18at 15:06; Start 10/31/18 at 13:18; Stop 11/01/18 at 13:17; Status DC Ondansetron HCl (Zofran) 4 mg PRN Q6HRS PRN IV NAUSEA/VOMITING; Start 10/31/18 at 13:45; Stop 11/01/18 at 13:44; Status UNV Fentanyl Citrate (Fentanyl 2ml Vial) 25 mcg PRN Q5MIN PRN IV MILD PAIN; Start 10/31/18 at 13:45; Stop 11/01/18 at 13:44; Status UNV Fentanyl Citrate (Fentanyl 2ml Vial) 50 mcg PRN Q5MIN PRN IV MODERATE TO SEVERE PAIN; Start 10/31/18 at 13:45; Stop 11/01/18 at 13:44; Status UNV Morphine Sulfate (Morphine Sulfate) 1 mg PRN Q10MIN PRN IV SEVERE PAIN; Start 10/31/18 at 13:45; Stop 11/01/18 at 13:44; Status UNV Ringer's Solution 1,000 ml @ 30 mls/hr Q24H IV ; Start 10/31/18 at 13:31; Stop 11/01/18 at 01:30; Status UNV Lidocaine HCl (Xylocaine-Mpf 1% 2ml Vial) 2 ml 1X PRN PRN ID IV START; Start 10/31/18 at 13:45; Stop 11/01/18 at 13:44; Status UNV Hydromorphone HCl (Dilaudid) 0.5 mg PRN Q10MIN PRN IV SEV PAIN, Second choice; Start 10/31/18 at 13:45; Stop 11/01/18 at 13:44; Status UNV Prochlorperazine Edisylate (Compazine) 5 mg PACU PRN PRN IV NAUSEA, MRX1; Start 10/31/18 at 13:45; Stop 11/01/18 at 13:44; Status UNV Ondansetron HCl (Zofran) 4 mg PRN Q6HRS PRN IV NAUSEA/VOMITING; Start 10/31/18 at 13:45; Stop 11/01/18 at 13:44; Status DC Fentanyl Citrate (Fentanyl 2ml Vial) 25 mcg PRN Q5MIN PRN IV MILD PAIN; Start 10/31/18 at 13:45; Stop 11/01/18 at 13:44; Status DC Fentanyl Citrate (Fentanyl 2ml Vial) 50 mcg PRN Q5MIN PRN IV MODERATE TO SEVERE PAIN Last administered on 10/31/18at 19:24; Start 10/31/18 at 13:45; Stop 11/01/18 at 13:44; Status DC Morphine Sulfate (Morphine Sulfate) 1 mg PRN Q10MIN PRN IV SEVERE PAIN; Start 10/31/18 at 13:45; Stop 11/01/18 at 13:44; Status DC Ringer's Solution 1,000 ml @ 30 mls/hr Q24H IV ; Start 10/31/18 at 13:31; Stop 11/01/18 at 01:30; Status DC Lidocaine HCl (Xylocaine-Mpf 1% 2ml Vial) 2 ml 1X PRN PRN ID IV START; Start 10/31/18 at 13:45; Stop 11/01/18 at 13:44; Status DC Hydromorphone HCl (Dilaudid) 0.5 mg PRN Q10MIN PRN IV SEV PAIN, Second choice Last administered on 10/31/18at 20:03; Start 10/31/18 at 13:45; Stop 11/01/18 at 13:44; Status DC Prochlorperazine Edisylate (Compazine) 5 mg PACU PRN PRN IV NAUSEA, MRX1 Last administered on 10/31/18at 19:44; Start 10/31/18 at 13:45; Stop 11/01/18 at 13:44; Status DC Propofol 20 ml @ As Directed STK-MED ONCE IV ; Start 10/31/18 at 16:00; Stop 10/31/18 at 16:02; Status DC Lidocaine HCl (Lidocaine Pf 2% Vial) 5 ml STK-MED ONCE .ROUTE ; Start 10/31/18 at 16:00; Stop 10/31/18 at 16:02; Status DC Fentanyl Citrate (Fentanyl 2ml Vial) 100 mcg STK-MED ONCE .ROUTE ; Start 10/31/18 at 16:01; Stop 10/31/18 at 16:04; Status DC Midazolam HCl (Versed) 2 mg STK-MED ONCE .ROUTE ; Start 10/31/18 at 17:34; Stop 10/31/18 at 17:35; Status DC Ondansetron HCl (Zofran) 4 mg STK-MED ONCE .ROUTE ; Start 10/31/18 at 17:57; Stop 10/31/18 at 17:58; Status DC Ketorolac Tromethamine (Toradol For Or Only) 30 mg STK-MED ONCE INJ ; Start 10/31/18 at 17:57; Stop 10/31/18 at 17:58; Status DC Dexamethasone Sodium Phosphate (Decadron) 4 mg STK-MED ONCE .ROUTE ; Start 10/31/18 at 17:57; Stop 10/31/18 at 17:58; Status DC Ampicillin Sodium/ Sulbactam Sodium 3 gm/Sodium Chloride 100 ml @ 200 mls/hr 1X ONCE IV Last administered on 10/31/18at 18:19; Start 10/31/18 at 18:15; Stop 10/31/18 at 18:44; Status DC Piperacillin Sod/ Tazobactam Sod 3.375 gm/Sodium Chloride 50 ml @ 100 mls/hr Q6HRS IV ; Start 10/31/18 at 18:30; Status Cancel Enoxaparin Sodium (Lovenox 40mg Syringe) 40 mg Q24H SQ Last administered on 11/04/18at 09:26; Start 11/01/18 at 09:00 Fentanyl Citrate (Fentanyl 2ml Vial) 100 mcg STK-MED ONCE .ROUTE ; Start 10/31/18 at 18:21; Stop 10/31/18 at 18:22; Status DC Piperacillin Sod/ Tazobactam Sod 3.375 gm/Sodium Chloride 50 ml @ 100 mls/hr Q6HRS IV Last administered on 11/04/18at 05:18; Start 11/01/18 at 00:00 Fentanyl Citrate (Fentanyl 2ml Vial) 100 mcg STK-MED ONCE .ROUTE ; Start 10/31/18 at 19:10; Stop 10/31/18 at 19:11; Status DC Hydromorphone HCl (Dilaudid) 2 mg STK-MED ONCE .ROUTE ; Start 10/31/18 at 19:27; Stop 10/31/18 at 19:28; Status DC Prochlorperazine Edisylate (Compazine) 10 mg STK-MED ONCE .ROUTE ; Start 10/31/18 at 19:29; Stop 10/31/18 at 19:30; Status DC Lactobacillus Rhamnosus (Culturelle) 1 cap BID PO Last administered on 11/04/18at 09:25; Start 11/01/18 at 21:00 Oxycodone/ Acetaminophen (Percocet 5/325) 1 tab PRN Q4HRS PRN PO PAIN Last administered on 11/03/18at 20:31; Start 11/01/18 at 17:00; Stop 11/03/18 at 21:21; Status DC Oxycodone/ Acetaminophen (Percocet 10/325) 1 tab PRN Q4HRS PRN PO PAIN Last administered on 11/04/18at 09:25; Start 11/03/18 at 21:30 Vitals/I & O Vital Sign - Last 24 Hours 11/03/18 11/03/18 11/03/18 11/03/18 11:06 15:03 16:12 19:00 Temp 98.1 98.5 98.1 98.1 98.5 98.1 Pulse 62 67 62 Resp 14 17 18 B/P (MAP) 143/84 (103) 144/87 (106) 153/98 (116) Pulse Ox 98 99 97 O2 Delivery Room Air Room Air Room Air Room Air 11/03/18 11/03/18 11/03/18 11/03/18 20:00 20:31 21:31 23:00 Temp 98.0 98.0 Pulse 59 Resp 18 B/P (MAP) 143/83 (103) Pulse Ox 95 O2 Delivery Room Air Room Air Room Air Room Air 11/04/18 11/04/18 11/04/18 11/04/18 01:02 03:00 05:18 06:18 Temp 98.0 98.0 Pulse 71 Resp 18 B/P (MAP) 141/108 (119) Pulse Ox 99 O2 Delivery Room Air Room Air Room Air Room Air 11/04/18 07:00 Temp 97.9 97.9 Pulse 65 Resp 18 B/P (MAP) 123/88 (100) Pulse Ox 98 O2 Delivery Room Air Intake and Output 11/03/18 11/03/18 11/04/18 15:00 23:00 07:00 Intake Total 50 ml 400 ml 150 ml Balance 50 ml 400 ml 150 ml BREANNA ROCHE MD November 04, 2018 10:14
[2018-11-04 11:00] VITALS: BP 146/74
[2018-11-04 11:44] LABS: BASO # 0.1 x10^3/uL (0.0-0.2); BASO % 1 % (0-3); EOS # 0.3 x10^3/uL (0.0-0.7); EOS % 3 % (0-3); HEMATOCRIT 45.1 % (39.0-53.0); HEMOGLOBIN 15.3 g/dL (13.0-17.5); LYMPH # 1.7 x10^3/uL (1.0-4.8); LYMPH % 20 % (24-48); MEAN CORPUSCULAR HEMOGLOBIN 27 pg (25-35); MEAN CORPUSCULAR HGB CONC 34 g/dL (31-37); MEAN CORPUSCULAR VOLUME 81 fL (79-100); MONO # 0.7 x10^3/uL (0.0-1.1); MONO % 8 % (0-9); NEUT # 5.8 x10^3uL (1.8-7.7); NEUT % 68 % (31-73); PLATELET COUNT 273 x10^3/uL (140-400); RED BLOOD COUNT 5.58 x10^6/uL (4.30-5.70); RED CELL DISTRIBUTION WIDTH 13.7 % (11.5-14.5); WHITE BLOOD COUNT 8.4 x10^3/uL (4.0-11.0)
[2018-11-04 11:53] LABS: CALCIUM 9.1 mg/dL (8.5-10.1); GFR 103.5; POTASSIUM 4.1 mmol/L (3.5-5.1)
[2018-11-04] MEDS: DOCUSATE SODIUM 100 MG CAPSULE. PO SCH ×2 (12:13→20:49)
--- NOTE | 2018-11-04 12:21 | PDOC ---
Infectious Disease Note Subjective Subjective pt is feeling better ROS ROS no n/v/d/ Vital Sign Vital Signs Vital Signs Date Time Temp Pulse Resp B/P (MAP) Pulse Ox O2 Delivery O2 Flow Rate FiO2 11/04/18 11:00 98.4 68 18 146/74 (98) 98 Room Air 98.4 11/04/18 10:56 8.0 Physical Exam PHYSICAL EXAM GENERAL: Alert, oriented gentleman, not in distress. VITAL SIGNS: Stable, afebrile. HEENT: NAD. NECK: Supple, no JVP, no lymphadenopathy. LUNGS: Clear. HEART: S1, S2 regular. ABDOMEN: Benign. EXTREMITIES: First finger on the left is bandaged with clean dry and intact dressing SKIN: Unremarkable. Left index finger, post-surgical dressing not opened. NEUROLOGIC: The patient is neurologically intact. Labs Lab Laboratory Tests Test 11/04/18 11:35 White Blood Count 8.4 x10^3/uL (4.0-11.0) Red Blood Count 5.58 x10^6/uL (4.30-5.70) Hemoglobin 15.3 g/dL (13.0-17.5) Hematocrit 45.1 % (39.0-53.0) Mean Corpuscular Volume 81 fL (79-100) Mean Corpuscular Hemoglobin 27 pg (25-35) Mean Corpuscular Hemoglobin Concent 34 g/dL (31-37) Red Cell Distribution Width 13.7 % (11.5-14.5) Platelet Count 273 x10^3/uL (140-400) Neutrophils (%) (Auto) 68 % (31-73) Lymphocytes (%) (Auto) 20 % (24-48) Monocytes (%) (Auto) 8 % (0-9) Eosinophils (%) (Auto) 3 % (0-3) Basophils (%) (Auto) 1 % (0-3) Neutrophils # (Auto) 5.8 x10^3uL (1.8-7.7) Lymphocytes # (Auto) 1.7 x10^3/uL (1.0-4.8) Monocytes # (Auto) 0.7 x10^3/uL (0.0-1.1) Eosinophils # (Auto) 0.3 x10^3/uL (0.0-0.7) Basophils # (Auto) 0.1 x10^3/uL (0.0-0.2) Sodium Level 139 mmol/L (136-145) Potassium Level 4.1 mmol/L (3.5-5.1) Chloride Level 102 mmol/L (98-107) Carbon Dioxide Level 30 mmol/L (21-32) Anion Gap 7 (6-14) Blood Urea Nitrogen 8 mg/dL (8-26) Creatinine 1.0 mg/dL (0.7-1.3) Estimated GFR (Cockcroft-Gault) 103.5 Glucose Level 98 mg/dL (70-99) Calcium Level 9.1 mg/dL (8.5-10.1) Micro ANAEROBIC-AEROBIC CULTURE PENDING ANAEROBIC RES 1 PENDING AEROBIC CULT Preliminary Preliminary report AEROBIC RES 1 Preliminary Staphylococcus aureus 2+ AEROBIC RES 2 Preliminary Gram negative rods Scant growth AEROBIC RES 3 Preliminary Mixed skin elizabeth 2+ Performed at: - [facility], [place], [place] [id number] Removable Prosthodontist: HOWIE Coker MD, Phone: [phone] GRAM STAIN PENDING GRAM STAIN RES 1 Objective Assessment Left index finger infection s/p I and D Left index finger distal phalanx communited fracture Drug use HTN Plan Plan of Care zosyn check cultures supportive care d/w Dr Albrecht, fracture and infected wound is not communicating, so will not need iv antibiotics staph aureus , susceptibility pending then change to po for d/c KAIDEN CURIEL MD November 04, 2018 12:21
--- NOTE | 2018-11-04 13:52 | PDOC ---
PROGRESS NOTES Subjective Subjective Problems overnight: He complains of continued finger pain although has a out of proportion low pain tolerance and has some movement better than on his initial presentation but still some expected soreness over the tendon sheath there is no tenderness proximal in the palm as he previously had Objective Vital Signs Vital Signs Date Time Temp Pulse Resp B/P (MAP) Pulse Ox O2 Delivery O2 Flow Rate FiO2 11/04/18 11:00 98.4 68 18 146/74 (98) 98 Room Air 98.4 11/04/18 10:56 8.0 Physical Exam Areas of packing were removed and the index finger redressed. He did appear to have some granulation tissue in the affected areas where the skin was traumatized from bite craig the incisions remain draining freely in the palm and over the middle phalanx area distal finger wound appears to be granulating well Labs Laboratory Tests Test 11/04/18 11:35 White Blood Count 8.4 x10^3/uL (4.0-11.0) Red Blood Count 5.58 x10^6/uL (4.30-5.70) Hemoglobin 15.3 g/dL (13.0-17.5) Hematocrit 45.1 % (39.0-53.0) Mean Corpuscular Volume 81 fL (79-100) Mean Corpuscular Hemoglobin 27 pg (25-35) Mean Corpuscular Hemoglobin Concent 34 g/dL (31-37) Red Cell Distribution Width 13.7 % (11.5-14.5) Platelet Count 273 x10^3/uL (140-400) Neutrophils (%) (Auto) 68 % (31-73) Lymphocytes (%) (Auto) 20 % (24-48) Monocytes (%) (Auto) 8 % (0-9) Eosinophils (%) (Auto) 3 % (0-3) Basophils (%) (Auto) 1 % (0-3) Neutrophils # (Auto) 5.8 x10^3uL (1.8-7.7) Lymphocytes # (Auto) 1.7 x10^3/uL (1.0-4.8) Monocytes # (Auto) 0.7 x10^3/uL (0.0-1.1) Eosinophils # (Auto) 0.3 x10^3/uL (0.0-0.7) Basophils # (Auto) 0.1 x10^3/uL (0.0-0.2) Sodium Level 139 mmol/L (136-145) Potassium Level 4.1 mmol/L (3.5-5.1) Chloride Level 102 mmol/L (98-107) Carbon Dioxide Level 30 mmol/L (21-32) Anion Gap 7 (6-14) Blood Urea Nitrogen 8 mg/dL (8-26) Creatinine 1.0 mg/dL (0.7-1.3) Estimated GFR (Cockcroft-Gault) 103.5 Glucose Level 98 mg/dL (70-99) Calcium Level 9.1 mg/dL (8.5-10.1) Laboratory Tests Test 11/04/18 11:35 White Blood Count 8.4 x10^3/uL (4.0-11.0) Red Blood Count 5.58 x10^6/uL (4.30-5.70) Hemoglobin 15.3 g/dL (13.0-17.5) Hematocrit 45.1 % (39.0-53.0) Mean Corpuscular Volume 81 fL (79-100) Mean Corpuscular Hemoglobin 27 pg (25-35) Mean Corpuscular Hemoglobin Concent 34 g/dL (31-37) Red Cell Distribution Width 13.7 % (11.5-14.5) Platelet Count 273 x10^3/uL (140-400) Neutrophils (%) (Auto) 68 % (31-73) Lymphocytes (%) (Auto) 20 % (24-48) Monocytes (%) (Auto) 8 % (0-9) Eosinophils (%) (Auto) 3 % (0-3) Basophils (%) (Auto) 1 % (0-3) Neutrophils # (Auto) 5.8 x10^3uL (1.8-7.7) Lymphocytes # (Auto) 1.7 x10^3/uL (1.0-4.8) Monocytes # (Auto) 0.7 x10^3/uL (0.0-1.1) Eosinophils # (Auto) 0.3 x10^3/uL (0.0-0.7) Basophils # (Auto) 0.1 x10^3/uL (0.0-0.2) Sodium Level 139 mmol/L (136-145) Potassium Level 4.1 mmol/L (3.5-5.1) Chloride Level 102 mmol/L (98-107) Carbon Dioxide Level 30 mmol/L (21-32) Anion Gap 7 (6-14) Blood Urea Nitrogen 8 mg/dL (8-26) Creatinine 1.0 mg/dL (0.7-1.3) Estimated GFR (Cockcroft-Gault) 103.5 Glucose Level 98 mg/dL (70-99) Calcium Level 9.1 mg/dL (8.5-10.1) Assessment Assessment POD# [], S/P [irrigation debridement of flexor tenosynovitis] Plan Plan of Care I went over with him that cultures continued to be pending and he will continue to need some ongoing wound care and antibiotics but overall does not seem to be having progressive symptoms of infection. He does have some severe soft tissue injuries due to the bite craig and may need a few weeks worth of wound care as a result. Findings both intraoperatively and on dressing changes were discussed with Dr. Macario of infectious disease VIMALML DHALIWAL MD November 04, 2018 13:52
[2018-11-04 15:00] VITALS: BP 155/99
[2018-11-04 19:00] VITALS: BP 169/110
[2018-11-04 22:48] VITALS: BP 160/87
[2018-11-05 03:00] VITALS: BP 165/102
[2018-11-05] MEDS: oxyCODONE/APAP 10/325 1 TAB TABLET PO PRN ×4 (04:55→23:41)
[2018-11-05] MEDS: PIPERACILLIN/TAZOBACTAM 3.375 GM in IV NORMAL SALINE 50ML 50 ML IV SCH ×2 (06:11→11:31)
[2018-11-05 06:32] LABS: BASO # 0.1 x10^3/uL (0.0-0.2); BASO % 1 % (0-3); EOS # 0.3 x10^3/uL (0.0-0.7); EOS % 4 % (0-3); HEMATOCRIT 46.1 % (39.0-53.0); HEMOGLOBIN 15.5 g/dL (13.0-17.5); LYMPH # 1.9 x10^3/uL (1.0-4.8); LYMPH % 23 % (24-48); MEAN CORPUSCULAR HEMOGLOBIN 28 pg (25-35); MEAN CORPUSCULAR HGB CONC 34 g/dL (31-37); MEAN CORPUSCULAR VOLUME 82 fL (79-100); MONO # 0.8 x10^3/uL (0.0-1.1); MONO % 10 % (0-9); NEUT # 4.9 x10^3uL (1.8-7.7); NEUT % 61 % (31-73); PLATELET COUNT 271 x10^3/uL (140-400); RED BLOOD COUNT 5.65 x10^6/uL (4.30-5.70); RED CELL DISTRIBUTION WIDTH 13.8 % (11.5-14.5)
[2018-11-05 06:48] LABS: ALBUMIN 3.4 g/dL (3.4-5.0); CALCIUM 8.8 mg/dL (8.5-10.1); CREATININE 0.9 mg/dL (0.7-1.3); GFR 116.9; POTASSIUM 4.4 mmol/L (3.5-5.1); TOTAL BILIRUBIN 0.3 mg/dL (0.2-1.0); TOTAL PROTEIN 6.9 g/dL (6.4-8.2)
[2018-11-05 07:00] VITALS: BP 131/91
[2018-11-05] MEDS: DOCUSATE SODIUM 100 MG CAPSULE. PO SCH ×2 (08:29→20:40)
[2018-11-05] MEDS: LACTOBACILLUS RHAMNOSUS GG 1 CAPSULE. PO SCH ×2 (08:29→20:39)
[2018-11-05] MEDS: ENOXAPARIN 40 MG/0.4 ML SYRINGE. SQ SCH (08:29)
[2018-11-05 11:00] VITALS: BP 144/75
--- NOTE | 2018-11-05 13:26 | PDOC ---
Infectious Disease Note Subjective Subjective Up stretching Pain controlled No F/C/N/V ROS ROS per HPI Vital Sign Vital Signs Vital Signs Date Time Temp Pulse Resp B/P (MAP) Pulse Ox O2 Delivery O2 Flow Rate FiO2 11/05/18 11:00 98.4 69 18 144/75 (98) 98 Room Air 98.4 11/04/18 16:43 8.0 Physical Exam PHYSICAL EXAM GENERAL: Standing, marching in place, smiling HEENT: Oral cavity clear NECK: Supple LUNGS: Clear. HEART: S1, S2 regular. ABDOMEN: Soft and nontender EXTREMITIES: First finger on the left is bandaged with clean dry and intact dressing SKIN: No rash NEUROLOGIC: Alert and oriented [facility] clean Labs Lab Laboratory Tests Test 11/05/18 06:15 White Blood Count 8.0 x10^3/uL (4.0-11.0) Red Blood Count 5.65 x10^6/uL (4.30-5.70) Hemoglobin 15.5 g/dL (13.0-17.5) Hematocrit 46.1 % (39.0-53.0) Mean Corpuscular Volume 82 fL (79-100) Mean Corpuscular Hemoglobin 28 pg (25-35) Mean Corpuscular Hemoglobin Concent 34 g/dL (31-37) Red Cell Distribution Width 13.8 % (11.5-14.5) Platelet Count 271 x10^3/uL (140-400) Neutrophils (%) (Auto) 61 % (31-73) Lymphocytes (%) (Auto) 23 % (24-48) Monocytes (%) (Auto) 10 % (0-9) Eosinophils (%) (Auto) 4 % (0-3) Basophils (%) (Auto) 1 % (0-3) Neutrophils # (Auto) 4.9 x10^3uL (1.8-7.7) Lymphocytes # (Auto) 1.9 x10^3/uL (1.0-4.8) Monocytes # (Auto) 0.8 x10^3/uL (0.0-1.1) Eosinophils # (Auto) 0.3 x10^3/uL (0.0-0.7) Basophils # (Auto) 0.1 x10^3/uL (0.0-0.2) Sodium Level 139 mmol/L (136-145) Potassium Level 4.4 mmol/L (3.5-5.1) Chloride Level 102 mmol/L (98-107) Carbon Dioxide Level 29 mmol/L (21-32) Anion Gap 8 (6-14) Blood Urea Nitrogen 15 mg/dL (8-26) Creatinine 0.9 mg/dL (0.7-1.3) Estimated GFR (Cockcroft-Gault) 116.9 BUN/Creatinine Ratio 17 (6-20) Glucose Level 108 mg/dL (70-99) Calcium Level 8.8 mg/dL (8.5-10.1) Total Bilirubin 0.3 mg/dL (0.2-1.0) Aspartate Amino Transf (AST/SGOT) 33 U/L (15-37) Alanine Aminotransferase (ALT/SGPT) 43 U/L (16-63) Alkaline Phosphatase 60 U/L (46-116) Total Protein 6.9 g/dL (6.4-8.2) Albumin 3.4 g/dL (3.4-5.0) Albumin/Globulin Ratio 1.0 (1.0-1.7) Micro ANAEROBIC RES 1 Final No anaerobic growth in 72 hours. AEROBIC RES 1 Final Staphylococcus aureus y. AEROBIC RES 2 Final Comment Acinetobacter baumannii Scant growth Multi-Drug Resistant Organism AEROBIC RES 3 Final Mixed skin elizabeth 2+ ANTIMICROBIAL SUSCEPTIBILITY Final MICS are expressed in micrograms per mL Antibiotic RSLT#1 RSLT#2 Ampicillin/Sulbactam R =R Cefepime R>=64 Cefotaxime R>=64 Ceftazidime R>=64 Ceftriaxone R>=64 Ciprofloxacin S<=0.5 R>=4 Clindamycin S<=0.25 Erythromycin S<=0.25 Gentamicin S<=0.5 S<=1 Imipenem R>=16 Levofloxacin S =0.25 R>=8 Linezolid S =2 Meropenem I =8 Moxifloxacin S<=0.25 Oxacillin S =0.5 Piperacillin R>=128 Quinupristin/Dalfopristin S<=0.25 Rifampin S<=0.5 Tetracycline S<=1 R>=16 Tobramycin S<=1 Trimethoprim/Sulfa S<=10 R>=320 Vancomycin S =1 Objective Assessment Left index finger infection s/p I and D, 10/31. MSSA and MDR Acinetobacter (sensitive only to tobra and gent; I meropenem) Left index finger open distal phalanx communited fracture s/p surgery 10/31 Drug use HTN Plan Plan of Care Continue Zosyn Local wound care as directed MDR Acinetobacter no options would like to avoid tobra and gent due to potential for JESE D/W pt Patient seen, examined, I agree with above Assessment and plan by [employer]LLER. MOSES HICKMAN APRN November 05, 2018 13:26 ASHLEY CURIEL MD November 05, 2018 14:01
--- NOTE | 2018-11-05 14:29 | PDOC ---
PROGRESS NOTES Chief Complaint Chief Complaint new cx results, MDR acetinobacter, discussed with ID, abx to be changed, TOXIC ENCEPHALOPATHY and finger injury 1. Comminuted, displacd, fracture of the second distal phalanx. 2. cellulitis 3. Acute tenosynovitis 4..Left index finger comminuted fracture. 5. Left index finger infection. 6. Left hand tenosynovitis. 7. Hypertension. 8. Asthma. 9. Leukocytosis. History of Present Illness History of Present Illness medical officer's are present POD #5 ortho surg to finger on IV abx cont current pain control try to DC soon, abx will need to be broadened Vitals Vitals Vital Signs Date Time Temp Pulse Resp B/P (MAP) Pulse Ox O2 Delivery O2 Flow Rate FiO2 11/05/18 11:00 98.4 69 18 144/75 (98) 98 Room Air 98.4 11/04/18 16:43 8.0 Physical Exam Physical Exam GENERAL: Standing, marching in place, smiling HEENT: Oral cavity clear NECK: Supple LUNGS: Clear. HEART: S1, S2 regular. ABDOMEN: Soft and nontender EXTREMITIES: First finger on the left is bandaged with clean dry and intact dressing SKIN: No rash NEUROLOGIC: Alert and oriented RUE-PICC clean General: Alert, Oriented X3, Cooperative, No acute distress, mild distress Heart: Regular rate, Normal S1, Normal S2, No murmurs Lungs: Clear Abdomen: Normal bowel sounds, Soft, No tenderness Extremities: No clubbing, No cyanosis, Normal pulses Skin: No breakdown Labs LABS Laboratory Tests Test 11/05/18 06:15 White Blood Count 8.0 x10^3/uL (4.0-11.0) Red Blood Count 5.65 x10^6/uL (4.30-5.70) Hemoglobin 15.5 g/dL (13.0-17.5) Hematocrit 46.1 % (39.0-53.0) Mean Corpuscular Volume 82 fL (79-100) Mean Corpuscular Hemoglobin 28 pg (25-35) Mean Corpuscular Hemoglobin Concent 34 g/dL (31-37) Red Cell Distribution Width 13.8 % (11.5-14.5) Platelet Count 271 x10^3/uL (140-400) Neutrophils (%) (Auto) 61 % (31-73) Lymphocytes (%) (Auto) 23 % (24-48) Monocytes (%) (Auto) 10 % (0-9) Eosinophils (%) (Auto) 4 % (0-3) Basophils (%) (Auto) 1 % (0-3) Neutrophils # (Auto) 4.9 x10^3uL (1.8-7.7) Lymphocytes # (Auto) 1.9 x10^3/uL (1.0-4.8) Monocytes # (Auto) 0.8 x10^3/uL (0.0-1.1) Eosinophils # (Auto) 0.3 x10^3/uL (0.0-0.7) Basophils # (Auto) 0.1 x10^3/uL (0.0-0.2) Sodium Level 139 mmol/L (136-145) Potassium Level 4.4 mmol/L (3.5-5.1) Chloride Level 102 mmol/L (98-107) Carbon Dioxide Level 29 mmol/L (21-32) Anion Gap 8 (6-14) Blood Urea Nitrogen 15 mg/dL (8-26) Creatinine 0.9 mg/dL (0.7-1.3) Estimated GFR (Cockcroft-Gault) 116.9 BUN/Creatinine Ratio 17 (6-20) Glucose Level 108 mg/dL (70-99) Calcium Level 8.8 mg/dL (8.5-10.1) Total Bilirubin 0.3 mg/dL (0.2-1.0) Aspartate Amino Transf (AST/SGOT) 33 U/L (15-37) Alanine Aminotransferase (ALT/SGPT) 43 U/L (16-63) Alkaline Phosphatase 60 U/L (46-116) Total Protein 6.9 g/dL (6.4-8.2) Albumin 3.4 g/dL (3.4-5.0) Albumin/Globulin Ratio 1.0 (1.0-1.7) Assessment and Plan Assessmemt and Plan Problems Medical Problems: (1) Finger fracture Status: Acute (2) Tenosynovitis Status: Acute Comment Review of Relevant I have reviewed the following items dev (where applicable) has been applied. Labs Laboratory Tests Test 11/04/18 11:35 11/05/18 06:15 White Blood Count 8.4 x10^3/uL (4.0-11.0) 8.0 x10^3/uL (4.0-11.0) Red Blood Count 5.58 x10^6/uL (4.30-5.70) 5.65 x10^6/uL (4.30-5.70) Hemoglobin 15.3 g/dL (13.0-17.5) 15.5 g/dL (13.0-17.5) Hematocrit 45.1 % (39.0-53.0) 46.1 % (39.0-53.0) Mean Corpuscular Volume 81 fL (79-100) 82 fL (79-100) Mean Corpuscular Hemoglobin 27 pg (25-35) 28 pg (25-35) Mean Corpuscular Hemoglobin Concent 34 g/dL (31-37) 34 g/dL (31-37) Red Cell Distribution Width 13.7 % (11.5-14.5) 13.8 % (11.5-14.5) Platelet Count 273 x10^3/uL (140-400) 271 x10^3/uL (140-400) Neutrophils (%) (Auto) 68 % (31-73) 61 % (31-73) Lymphocytes (%) (Auto) 20 % (24-48) 23 % (24-48) Monocytes (%) (Auto) 8 % (0-9) 10 % (0-9) Eosinophils (%) (Auto) 3 % (0-3) 4 % (0-3) Basophils (%) (Auto) 1 % (0-3) 1 % (0-3) Neutrophils # (Auto) 5.8 x10^3uL (1.8-7.7) 4.9 x10^3uL (1.8-7.7) Lymphocytes # (Auto) 1.7 x10^3/uL (1.0-4.8) 1.9 x10^3/uL (1.0-4.8) Monocytes # (Auto) 0.7 x10^3/uL (0.0-1.1) 0.8 x10^3/uL (0.0-1.1) Eosinophils # (Auto) 0.3 x10^3/uL (0.0-0.7) 0.3 x10^3/uL (0.0-0.7) Basophils # (Auto) 0.1 x10^3/uL (0.0-0.2) 0.1 x10^3/uL (0.0-0.2) Sodium Level 139 mmol/L (136-145) 139 mmol/L (136-145) Potassium Level 4.1 mmol/L (3.5-5.1) 4.4 mmol/L (3.5-5.1) Chloride Level 102 mmol/L (98-107) 102 mmol/L (98-107) Carbon Dioxide Level 30 mmol/L (21-32) 29 mmol/L (21-32) Anion Gap 7 (6-14) 8 (6-14) Blood Urea Nitrogen 8 mg/dL (8-26) 15 mg/dL (8-26) Creatinine 1.0 mg/dL (0.7-1.3) 0.9 mg/dL (0.7-1.3) Estimated GFR (Cockcroft-Gault) 103.5 116.9 Glucose Level 98 mg/dL (70-99) 108 mg/dL (70-99) Calcium Level 9.1 mg/dL (8.5-10.1) 8.8 mg/dL (8.5-10.1) BUN/Creatinine Ratio 17 (6-20) Total Bilirubin 0.3 mg/dL (0.2-1.0) Aspartate Amino Transf (AST/SGOT) 33 U/L (15-37) Alanine Aminotransferase (ALT/SGPT) 43 U/L (16-63) Alkaline Phosphatase 60 U/L (46-116) Total Protein 6.9 g/dL (6.4-8.2) Albumin 3.4 g/dL (3.4-5.0) Albumin/Globulin Ratio 1.0 (1.0-1.7) Laboratory Tests Test 11/05/18 06:15 White Blood Count 8.0 x10^3/uL (4.0-11.0) Red Blood Count 5.65 x10^6/uL (4.30-5.70) Hemoglobin 15.5 g/dL (13.0-17.5) Hematocrit 46.1 % (39.0-53.0) Mean Corpuscular Volume 82 fL (79-100) Mean Corpuscular Hemoglobin 28 pg (25-35) Mean Corpuscular Hemoglobin Concent 34 g/dL (31-37) Red Cell Distribution Width 13.8 % (11.5-14.5) Platelet Count 271 x10^3/uL (140-400) Neutrophils (%) (Auto) 61 % (31-73) Lymphocytes (%) (Auto) 23 % (24-48) Monocytes (%) (Auto) 10 % (0-9) Eosinophils (%) (Auto) 4 % (0-3) Basophils (%) (Auto) 1 % (0-3) Neutrophils # (Auto) 4.9 x10^3uL (1.8-7.7) Lymphocytes # (Auto) 1.9 x10^3/uL (1.0-4.8) Monocytes # (Auto) 0.8 x10^3/uL (0.0-1.1) Eosinophils # (Auto) 0.3 x10^3/uL (0.0-0.7) Basophils # (Auto) 0.1 x10^3/uL (0.0-0.2) Sodium Level 139 mmol/L (136-145) Potassium Level 4.4 mmol/L (3.5-5.1) Chloride Level 102 mmol/L (98-107) Carbon Dioxide Level 29 mmol/L (21-32) Anion Gap 8 (6-14) Blood Urea Nitrogen 15 mg/dL (8-26) Creatinine 0.9 mg/dL (0.7-1.3) Estimated GFR (Cockcroft-Gault) 116.9 BUN/Creatinine Ratio 17 (6-20) Glucose Level 108 mg/dL (70-99) Calcium Level 8.8 mg/dL (8.5-10.1) Total Bilirubin 0.3 mg/dL (0.2-1.0) Aspartate Amino Transf (AST/SGOT) 33 U/L (15-37) Alanine Aminotransferase (ALT/SGPT) 43 U/L (16-63) Alkaline Phosphatase 60 U/L (46-116) Total Protein 6.9 g/dL (6.4-8.2) Albumin 3.4 g/dL (3.4-5.0) Albumin/Globulin Ratio 1.0 (1.0-1.7) Microbiology 10/31/18 Blood Culture - Final, Complete NO GROWTH AFTER 5 DAYS 10/31/18 Anaerobic/Aerobic Culture - Final, Resulted 10/31/18 Anaerobic Culture Result 1 (NANETTE) - Final, Resulted 10/31/18 Aerobic Culture - Final, Resulted 10/31/18 Aerobic Culture Result 1 (NANETTE) - Final, Resulted 10/31/18 Aerobic Culture Result 2 (NANETTE) - Final, Resulted 10/31/18 Aerobic Culture Result 3 (NANETTE) - Final, Resulted 10/31/18 Antimicrobic Susceptibility - Final, Resulted 10/31/18 Gram Stain, Resulted Pending 10/31/18 Gram Stain Result 1 (NANETTE), Resulted Pending Medications Current Medications Sodium Chloride 1,000 ml @ 1,000 mls/hr 1X ONCE IV Last administered on 10/31/18at 12:29; Start 10/31/18 at 12:00; Stop 10/31/18 at 12:59; Status DC Fentanyl Citrate (Fentanyl 2ml Vial) 50 mcg 1X ONCE IV Last administered on 10/31/18at 12:30; Start 10/31/18 at 12:00; Stop 10/31/18 at 12:01; Status DC Ampicillin Sodium/ Sulbactam Sodium 3 gm/Sodium Chloride 100 ml @ 200 mls/hr 1X ONCE IV Last administered on 10/31/18at 14:05; Start 10/31/18 at 13:30; Stop 10/31/18 at 13:59; Status DC Ondansetron HCl (Zofran) 4 mg PRN Q8HRS PRN IV NAUSEA/VOMITING; Start 10/31/18 at 13:30; Stop 11/01/18 at 13:29; Status DC Morphine Sulfate (Morphine Sulfate) 4 mg PRN Q2HR PRN IV MODERATE PAIN Last administered on 11/01/18at 06:04; Start 10/31/18 at 13:30; Stop 11/01/18 at 13:29; Status DC Fentanyl Citrate (Fentanyl 2ml Vial) 50 mcg PRN Q1HR PRN IV SEVERE PAIN; Start 10/31/18 at 13:30; Stop 11/01/18 at 13:29; Status DC Sodium Chloride 1,000 ml @ 125 mls/hr Q8H IV Last administered on 10/31/18at 15:06; Start 10/31/18 at 13:18; Stop 11/01/18 at 13:17; Status DC Ondansetron HCl (Zofran) 4 mg PRN Q6HRS PRN IV NAUSEA/VOMITING; Start 10/31/18 at 13:45; Stop 11/01/18 at 13:44; Status UNV Fentanyl Citrate (Fentanyl 2ml Vial) 25 mcg PRN Q5MIN PRN IV MILD PAIN; Start 10/31/18 at 13:45; Stop 11/01/18 at 13:44; Status UNV Fentanyl Citrate (Fentanyl 2ml Vial) 50 mcg PRN Q5MIN PRN IV MODERATE TO SEVERE PAIN; Start 10/31/18 at 13:45; Stop 11/01/18 at 13:44; Status UNV Morphine Sulfate (Morphine Sulfate) 1 mg PRN Q10MIN PRN IV SEVERE PAIN; Start 10/31/18 at 13:45; Stop 11/01/18 at 13:44; Status UNV Ringer's Solution 1,000 ml @ 30 mls/hr Q24H IV ; Start 10/31/18 at 13:31; Stop 11/01/18 at 01:30; Status UNV Lidocaine HCl (Xylocaine-Mpf 1% 2ml Vial) 2 ml 1X PRN PRN ID IV START; Start 10/31/18 at 13:45; Stop 11/01/18 at 13:44; Status UNV Hydromorphone HCl (Dilaudid) 0.5 mg PRN Q10MIN PRN IV SEV PAIN, Second choice; Start 10/31/18 at 13:45; Stop 11/01/18 at 13:44; Status UNV Prochlorperazine Edisylate (Compazine) 5 mg PACU PRN PRN IV NAUSEA, MRX1; Start 10/31/18 at 13:45; Stop 11/01/18 at 13:44; Status UNV Ondansetron HCl (Zofran) 4 mg PRN Q6HRS PRN IV NAUSEA/VOMITING; Start 10/31/18 at 13:45; Stop 11/01/18 at 13:44; Status DC Fentanyl Citrate (Fentanyl 2ml Vial) 25 mcg PRN Q5MIN PRN IV MILD PAIN; Start 10/31/18 at 13:45; Stop 11/01/18 at 13:44; Status DC Fentanyl Citrate (Fentanyl 2ml Vial) 50 mcg PRN Q5MIN PRN IV MODERATE TO SEVERE PAIN Last administered on 10/31/18at 19:24; Start 10/31/18 at 13:45; Stop 11/01/18 at 13:44; Status DC Morphine Sulfate (Morphine Sulfate) 1 mg PRN Q10MIN PRN IV SEVERE PAIN; Start 10/31/18 at 13:45; Stop 11/01/18 at 13:44; Status DC Ringer's Solution 1,000 ml @ 30 mls/hr Q24H IV ; Start 10/31/18 at 13:31; Stop 11/01/18 at 01:30; Status DC Lidocaine HCl (Xylocaine-Mpf 1% 2ml Vial) 2 ml 1X PRN PRN ID IV START; Start 10/31/18 at 13:45; Stop 11/01/18 at 13:44; Status DC Hydromorphone HCl (Dilaudid) 0.5 mg PRN Q10MIN PRN IV SEV PAIN, Second choice Last administered on 10/31/18at 20:03; Start 10/31/18 at 13:45; Stop 11/01/18 at 13:44; Status DC Prochlorperazine Edisylate (Compazine) 5 mg PACU PRN PRN IV NAUSEA, MRX1 Last administered on 10/31/18at 19:44; Start 10/31/18 at 13:45; Stop 11/01/18 at 13:4 4; Status DC Propofol 20 ml @ As Directed STK-MED ONCE IV ; Start 10/31/18 at 16:00; Stop 10/31/18 at 16:02; Status DC Lidocaine HCl (Lidocaine Pf 2% Vial) 5 ml STK-MED ONCE .ROUTE ; Start 10/31/18 at 16:00; Stop 10/31/18 at 16:02; Status DC Fentanyl Citrate (Fentanyl 2ml Vial) 100 mcg STK-MED ONCE .ROUTE ; Start 10/31/18 at 16:01; Stop 10/31/18 at 16:04; Status DC Midazolam HCl (Versed) 2 mg STK-MED ONCE .ROUTE ; Start 10/31/18 at 17:34; Stop 10/31/18 at 17:35; Status DC Ondansetron HCl (Zofran) 4 mg STK-MED ONCE .ROUTE ; Start 10/31/18 at 17:57; Stop 10/31/18 at 17:58; Status DC Ketorolac Tromethamine (Toradol For Or Only) 30 mg STK-MED ONCE INJ ; Start 10/31/18 at 17:57; Stop 10/31/18 at 17:58; Status DC Dexamethasone Sodium Phosphate (Decadron) 4 mg STK-MED ONCE .ROUTE ; Start 10/31/18 at 17:57; Stop 10/31/18 at 17:58; Status DC Ampicillin Sodium/ Sulbactam Sodium 3 gm/Sodium Chloride 100 ml @ 200 mls/hr 1X ONCE IV Last administered on 10/31/18at 18:19; Start 10/31/18 at 18:15; Stop 10/31/18 at 18:44; Status DC Piperacillin Sod/ Tazobactam Sod 3.375 gm/Sodium Chloride 50 ml @ 100 mls/hr Q6HRS IV ; Start 10/31/18 at 18:30; Status Cancel Enoxaparin Sodium (Lovenox 40mg Syringe) 40 mg Q24H SQ Last administered on 11/05/18at 08:29; Start 11/01/18 at 09:00 Fentanyl Citrate (Fentanyl 2ml Vial) 100 mcg STK-MED ONCE .ROUTE ; Start 10/31/18 at 18:21; Stop 10/31/18 at 18:22; Status DC Piperacillin Sod/ Tazobactam Sod 3.375 gm/Sodium Chloride 50 ml @ 100 mls/hr Q6HRS IV Last administered on 11/05/18at 11:31; Start 11/01/18 at 00:00; Stop 11/05/18 at 14:18; Status DC Fentanyl Citrate (Fentanyl 2ml Vial) 100 mcg STK-MED ONCE .ROUTE ; Start 10/31/18 at 19:10; Stop 10/31/18 at 19:11; Status DC Hydromorphone HCl (Dilaudid) 2 mg STK-MED ONCE .ROUTE ; Start 10/31/18 at 19:27; Stop 10/31/18 at 19:28; Status DC Prochlorperazine Edisylate (Compazine) 10 mg STK-MED ONCE .ROUTE ; Start 10/31 at 19:29; Stop 10/31/18 at 19:30; Status DC Lactobacillus Rhamnosus (Culturelle) 1 cap BID PO Last administered on 11/05/18 08:29; Start 11/01/18 at 21:00 Oxycodone/ Acetaminophen (Percocet 5/325) 1 tab PRN Q4HRS PRN PO PAIN Last administered on 11/03/18at 20:31; Start 11/01/18 at 17:00; Stop 11/03/18 at 21:21; Status DC Oxycodone/ Acetaminophen (Percocet 10/325) 1 tab PRN Q4HRS PRN PO PAIN Last administered on 11/05/18at 13:37; Start 11/03/18 at 21:30 Docusate Sodium (Colace) 100 mg BID PO Last administered on 11/05/18at 08:29; Start 11/04/18 at 12:00 Tigecycline 100 mg/Dextrose 100 ml @ 200 mls/hr 1X ONCE IV ; Start 11/05/18 at 14:30; Stop 11/05/18 at 14:59 Tigecycline 50 mg/ Dextrose 50 ml @ 100 mls/hr Q12HR IV ; Start 11/05/18 at 21:00 Vitals/I & O Vital Sign - Last 24 Hours 11/04/18 11/04/18 11/04/18 11/04/18 15:00 16:43 19:00 19:23 Temp 98.5 98.9 98.5 98.9 Pulse 59 68 Resp 18 18 B/P (MAP) 155/99 (117) 169/110 (129) Pulse Ox 100 100 100 O2 Delivery Room Air Room Air Room Air O2 Flow Rate 8.0 11/04/18 11/04/18 11/04/18 11/04/18 20:00 20:23 22:48 23:32 Temp 98.3 98.3 Pulse 64 Resp 18 B/P (MAP) 160/87 (111) Pulse Ox 98 O2 Delivery Room Air Room Air Room Air Room Air 11/05/18 11/05/18 11/05/18 11/05/18 03:00 04:55 07:00 08:00 Temp 98.1 98.1 98.1 98.1 Pulse 63 76 Resp 18 18 B/P (MAP) 165/102 (123) 131/91 (104) Pulse Ox 99 99 99 O2 Delivery Room Air Room Air Room Air Room Air 11/05/18 11:00 Temp 98.4 98.4 Pulse 69 Resp 18 B/P (MAP) 144/75 (98) Pulse Ox 98 O2 Delivery Room Air Intake and Output 11/04/18 11/04/18 11/05/18 15:00 23:00 07:00 Intake Total 100 ml 280 ml 730 ml Balance 100 ml 280 ml 730 ml HUE ARGUETA MD November 05, 2018 14:29
[2018-11-05] MEDS ORDERED: TIGECYCLINE 100 MG in IV DEXTROSE 5% 100ML 100 ML IV ONE (14:30)
[2018-11-05 15:00] VITALS: BP 151/101
[2018-11-05 19:00] VITALS: BP 173/92
[2018-11-05] MEDS: TIGECYCLINE 50 MG in IV DEXTROSE 5% 50 ML IV SCH (20:39)
[2018-11-05 23:00] VITALS: BP 160/82
[2018-11-06] MEDS: ONDANSETRON PF 4 MG/2 ML VIAL. IV PRN ×2 (00:42→07:58)
[2018-11-06 03:00] VITALS: BP 140/81
[2018-11-06] MEDS: oxyCODONE/APAP 10/325 1 TAB TABLET PO PRN ×4 (06:40→22:22)
[2018-11-06 07:00] VITALS: BP 161/124
[2018-11-06] MEDS: DOCUSATE SODIUM 100 MG CAPSULE. PO SCH ×2 (07:58→20:37)
[2018-11-06] MEDS: ENOXAPARIN 40 MG/0.4 ML SYRINGE. SQ SCH (07:58)
[2018-11-06] MEDS: LACTOBACILLUS RHAMNOSUS GG 1 CAPSULE. PO SCH ×2 (08:20→20:37)
[2018-11-06] MEDS: TIGECYCLINE 50 MG in IV DEXTROSE 5% 50 ML IV SCH ×2 (08:37→20:38)
[2018-11-06 11:00] VITALS: BP 124/79
--- NOTE | 2018-11-06 13:50 | PDOC ---
Infectious Disease Note Subjective Subjective c/o pain and limited ROM Vomited earlier No fevers has some nausea ROS ROS per HPI Vital Sign Vital Signs Vital Signs Date Time Temp Pulse Resp B/P (MAP) Pulse Ox O2 Delivery O2 Flow Rate FiO2 11/06/18 11:00 98.5 66 18 124/79 (94) 94 Room Air 98.5 Physical Exam PHYSICAL EXAM GENERAL: Sleeping, arouse easily to name HEENT: Oral cavity clear NECK: Supple LUNGS: Clear. HEART: S1, S2 regular. ABDOMEN: Soft and nontender EXTREMITIES: First finger on the left is bandaged with clean dry and intact dressing SKIN: No rash NEUROLOGIC: Responds appropriately RUE-PICC clean Labs Micro ANAEROBIC RES 1 Final No anaerobic growth in 72 hours. AEROBIC RES 1 Final Staphylococcus aureus y. AEROBIC RES 2 Final Comment Acinetobacter baumannii Scant growth Multi-Drug Resistant Organism AEROBIC RES 3 Final Mixed skin elizabeth 2+ ANTIMICROBIAL SUSCEPTIBILITY Final MICS are expressed in micrograms per mL Antibiotic RSLT#1 RSLT#2 Ampicillin/Sulbactam R =R Cefepime R>=64 Cefotaxime R>=64 Ceftazidime R>=64 Ceftriaxone R>=64 Ciprofloxacin S<=0.5 R>=4 Clindamycin S<=0.25 Erythromycin S<=0.25 Gentamicin S<=0.5 S<=1 Imipenem R>=16 Levofloxacin S =0.25 R>=8 Linezolid S =2 Meropenem I =8 Moxifloxacin S<=0.25 Oxacillin S =0.5 Piperacillin R>=128 Quinupristin/Dalfopristin S<=0.25 Rifampin S<=0.5 Tetracycline S<=1 R>=16 Tobramycin S<=1 Trimethoprim/Sulfa S<=10 R>=320 Vancomycin S =1 Objective Assessment Left index finger infection s/p I and D, 10/31. MSSA and MDR Acinetobacter (sensitive only to tobra and gent; I meropenem) Left index finger open distal phalanx communited fracture s/p surgery 10/31 Drug use HTN Nausea and vomiting likely drug induced Plan Plan of Care Continue Tigecycline Local wound care as directed Pain management per primary MDR Acinetobacter no options would like to avoid tobra and gent due to potential for JESE Pt seen and examined Labs and micro data reviewed Agree with above A/P per GARMENT FOLDER will give tigecycline over prolonged infusion to reduce GI side effects MOSES HICKMAN APRN November 06, 2018 13:50 ASHLEY CURIEL MD November 06, 2018 16:35
--- NOTE | 2018-11-06 14:59 | PDOC ---
PROGRESS NOTES Chief Complaint Chief Complaint MDR acetinobacter, discussed with ID [email or web address] need to Continue Tigecycline Local wound care as directed acute TOXIC ENCEPHALOPATHY (resolved) and finger injury 1. Comminuted, displaced, fracture of the second distal phalanx. 2. cellulitis 3. Acute tenosynovitis 4..Left index finger comminuted fracture. 5. Left index finger infection. 6. Left hand tenosynovitis. 7. Hypertension. 8. Asthma. 9. Leukocytosis. History of Present Illness History of Present Illness police officer's are present POD #5 ortho surg to finger on IV abx cont current pain control try to DC soon, abx will need to be broadened Vitals Vitals Vital Signs Date Time Temp Pulse Resp B/P (MAP) Pulse Ox O2 Delivery O2 Flow Rate FiO2 11/06/18 14:28 Room Air 11/06/18 11:00 98.5 66 18 124/79 (94) 94 98.5 Physical Exam Physical Exam LUNGS: Clear. HEART: S1, S2 regular. ABDOMEN: Soft and nontender EXTREMITIES: First finger on the left is bandaged with clean dry and intact dressing SKIN: No rash NEUROLOGIC: Responds appropriately RUE-PICC clean General: Alert, Oriented X3, Cooperative, No acute distress Heart: Regular rate, Normal S1, Normal S2, No murmurs Lungs: Clear Abdomen: Normal bowel sounds, Soft, No tenderness Extremities: No clubbing, No cyanosis, Normal pulses Skin: No breakdown Assessment and Plan Assessmemt and Plan Problems Medical Problems: (1) Finger fracture Status: Acute (2) Tenosynovitis Status: Acute Comment Review of Relevant I have reviewed the following items dev (where applicable) has been applied. Labs Laboratory Tests Test 11/05/18 06:15 White Blood Count 8.0 x10^3/uL (4.0-11.0) Red Blood Count 5.65 x10^6/uL (4.30-5.70) Hemoglobin 15.5 g/dL (13.0-17.5) Hematocrit 46.1 % (39.0-53.0) Mean Corpuscular Volume 82 fL (79-100) Mean Corpuscular Hemoglobin 28 pg (25-35) Mean Corpuscular Hemoglobin Concent 34 g/dL (31-37) Red Cell Distribution Width 13.8 % (11.5-14.5) Platelet Count 271 x10^3/uL (140-400) Neutrophils (%) (Auto) 61 % (31-73) Lymphocytes (%) (Auto) 23 % (24-48) Monocytes (%) (Auto) 10 % (0-9) Eosinophils (%) (Auto) 4 % (0-3) Basophils (%) (Auto) 1 % (0-3) Neutrophils # (Auto) 4.9 x10^3uL (1.8-7.7) Lymphocytes # (Auto) 1.9 x10^3/uL (1.0-4.8) Monocytes # (Auto) 0.8 x10^3/uL (0.0-1.1) Eosinophils # (Auto) 0.3 x10^3/uL (0.0-0.7) Basophils # (Auto) 0.1 x10^3/uL (0.0-0.2) Sodium Level 139 mmol/L (136-145) Potassium Level 4.4 mmol/L (3.5-5.1) Chloride Level 102 mmol/L (98-107) Carbon Dioxide Level 29 mmol/L (21-32) Anion Gap 8 (6-14) Blood Urea Nitrogen 15 mg/dL (8-26) Creatinine 0.9 mg/dL (0.7-1.3) Estimated GFR (Cockcroft-Gault) 116.9 BUN/Creatinine Ratio 17 (6-20) Glucose Level 108 mg/dL (70-99) Calcium Level 8.8 mg/dL (8.5-10.1) Total Bilirubin 0.3 mg/dL (0.2-1.0) Aspartate Amino Transf (AST/SGOT) 33 U/L (15-37) Alanine Aminotransferase (ALT/SGPT) 43 U/L (16-63) Alkaline Phosphatase 60 U/L (46-116) Total Protein 6.9 g/dL (6.4-8.2) Albumin 3.4 g/dL (3.4-5.0) Albumin/Globulin Ratio 1.0 (1.0-1.7) Microbiology 10/31/18 Blood Culture - Final, Complete NO GROWTH AFTER 5 DAYS 10/31/18 Anaerobic/Aerobic Culture - Final, Resulted 10/31/18 Anaerobic Culture Result 1 (NANETTE) - Final, Resulted 10/31/18 Aerobic Culture - Final, Resulted 10/31/18 Aerobic Culture Result 1 (NANETTE) - Final, Resulted 10/31/18 Aerobic Culture Result 2 (NANETTE) - Final, Resulted 10/31/18 Aerobic Culture Result 3 (NANETTE) - Final, Resulted 10/31/18 Antimicrobic Susceptibility - Final, Resulted 10/31/18 Gram Stain, Resulted Pending 10/31/18 Gram Stain Result 1 (NANETTE), Resulted Pending Medications Current Medications Sodium Chloride 1,000 ml @ 1,000 mls/hr 1X ONCE IV Last administered on 10/31/18at 12:29; Start 10/31/18 at 12:00; Stop 10/31/18 at 12:59; Status DC Fentanyl Citrate (Fentanyl 2ml Vial) 50 mcg 1X ONCE IV Last administered on 10/31/18at 12:30; Start 10/31/18 at 12:00; Stop 10/31/18 at 12:01; Status DC Ampicillin Sodium/ Sulbactam Sodium 3 gm/Sodium Chloride 100 ml @ 200 mls/hr 1X ONCE IV Last administered on 10/31/18at 14:05; Start 10/31/18 at 13:30; Stop 10/31/18 at 13:59; Status DC Ondansetron HCl (Zofran) 4 mg PRN Q8HRS PRN IV NAUSEA/VOMITING; Start 10/31/18 at 13:30; Stop 11/01/18 at 13:29; Status DC Morphine Sulfate (Morphine Sulfate) 4 mg PRN Q2HR PRN IV MODERATE PAIN Last administered on 11/01/18at 06:04; Start 10/31/18 at 13:30; Stop 11/01/18 at 13:29; Status DC Fentanyl Citrate (Fentanyl 2ml Vial) 50 mcg PRN Q1HR PRN IV SEVERE PAIN; Start 10/31/18 at 13:30; Stop 11/01/18 at 13:29; Status DC Sodium Chloride 1,000 ml @ 125 mls/hr Q8H IV Last administered on 10/31/18at 15:06; Start 10/31/18 at 13:18; Stop 11/01/18 at 13:17; Status DC Ondansetron HCl (Zofran) 4 mg PRN Q6HRS PRN IV NAUSEA/VOMITING; Start 10/31/18 at 13:45; Stop 11/01/18 at 13:44; Status UNV Fentanyl Citrate (Fentanyl 2ml Vial) 25 mcg PRN Q5MIN PRN IV MILD PAIN; Start 10/31/18 at 13:45; Stop 11/01/18 at 13:44; Status UNV Fentanyl Citrate (Fentanyl 2ml Vial) 50 mcg PRN Q5MIN PRN IV MODERATE TO SEVERE PAIN; Start 10/31/18 at 13:45; Stop 11/01/18 at 13:44; Status UNV Morphine Sulfate (Morphine Sulfate) 1 mg PRN Q10MIN PRN IV SEVERE PAIN; Start 10/31/18 at 13:45; Stop 11/01/18 at 13:44; Status UNV Ringer's Solution 1,000 ml @ 30 mls/hr Q24H IV ; Start 10/31/18 at 13:31; Stop 11/01/18 at 01:30; Status UNV Lidocaine HCl (Xylocaine-Mpf 1% 2ml Vial) 2 ml 1X PRN PRN ID IV START; Start 10/31/18 at 13:45; Stop 11/01/18 at 13:44; Status UNV Hydromorphone HCl (Dilaudid) 0.5 mg PRN Q10MIN PRN IV SEV PAIN, Second choice; Start 10/31/18 at 13:45; Stop 11/01/18 at 13:44; Status UNV Prochlorperazine Edisylate (Compazine) 5 mg PACU PRN PRN IV NAUSEA, MRX1; Start 10/31/18 at 13:45; Stop 11/01/18 at 13:44; Status UNV Ondansetron HCl (Zofran) 4 mg PRN Q6HRS PRN IV NAUSEA/VOMITING; Start 10/31/18 at 13:45; Stop 11/01/18 at 13:44; Status DC Fentanyl Citrate (Fentanyl 2ml Vial) 25 mcg PRN Q5MIN PRN IV MILD PAIN; Start 10/31/18 at 13:45; Stop 11/01/18 at 13:44; Status DC Fentanyl Citrate (Fentanyl 2ml Vial) 50 mcg PRN Q5MIN PRN IV MODERATE TO SEVERE PAIN Last administered on 10/31/18at 19:24; Start 10/31/18 at 13:45; Stop 11/01/18 at 13:44; Status DC Morphine Sulfate (Morphine Sulfate) 1 mg PRN Q10MIN PRN IV SEVERE PAIN; Start 10/31/18 at 13:45; Stop 11/01/18 at 13:44; Status DC Ringer's Solution 1,000 ml @ 30 mls/hr Q24H IV ; Start 10/31/18 at 13:31; Stop 11/01/18 at 01:30; Status DC Lidocaine HCl (Xylocaine-Mpf 1% 2ml Vial) 2 ml 1X PRN PRN ID IV START; Start 10/31/18 at 13:45; Stop 11/01/18 at 13:44; Status DC Hydromorphone HCl (Dilaudid) 0.5 mg PRN Q10MIN PRN IV SEV PAIN, Second choice Last administered on 10/31/18at 20:03; Start 10/31/18 at 13:45; Stop 11/01/18 at 13:44; Status DC Prochlorperazine Edisylate (Compazine) 5 mg PACU PRN PRN IV NAUSEA, MRX1 Last administered on 10/31/18at 19:44; Start 10/31/18 at 13:45; Stop 11/01/18 at 13:44; Status DC Propofol 20 ml @ As Directed STK-MED ONCE IV ; Start 10/31/18 at 16:00; Stop 10/31/18 at 16:02; Status DC Lidocaine HCl (Lidocaine Pf 2% Vial) 5 ml STK-MED ONCE .ROUTE ; Start 10/31/18 at 16:00; Stop 10/31/18 at 16:02; Status DC Fentanyl Citrate (Fentanyl 2ml Vial) 100 mcg STK-MED ONCE .ROUTE ; Start 10/31/18 at 16:01; Stop 10/31/18 at 16:04; Status DC Midazolam HCl (Versed) 2 mg STK-MED ONCE .ROUTE ; Start 10/31/18 at 17:34; Stop 10/31/18 at 17:35; Status DC Ondansetron HCl (Zofran) 4 mg STK-MED ONCE .ROUTE ; Start 10/31/18 at 17:57; Stop 10/31/18 at 17:58; Status DC Ketorolac Tromethamine (Toradol For Or Only) 30 mg STK-MED ONCE INJ ; Start 10/31/18 at 17:57; Stop 10/31/18 at 17:58; Status DC Dexamethasone Sodium Phosphate (Decadron) 4 mg STK-MED ONCE .ROUTE ; Start 10/31/18 at 17:57; Stop 10/31/18 at 17:58; Status DC Ampicillin Sodium/ Sulbactam Sodium 3 gm/Sodium Chloride 100 ml @ 200 mls/hr 1X ONCE IV Last administered on 10/31/18at 18:19; Start 10/31/18 at 18:15; Stop 10/31/18 at 18:44; Status DC Piperacillin Sod/ Tazobactam Sod 3.375 gm/Sodium Chloride 50 ml @ 100 mls/hr Q6HRS IV ; Start 10/31/18 at 18:30; Status Cancel Enoxaparin Sodium (Lovenox 40mg Syringe) 40 mg Q24H SQ Last administered on 11/06/18at 07:58; Start 11/01/18 at 09:00 Fentanyl Citrate (Fentanyl 2ml Vial) 100 mcg STK-MED ONCE .ROUTE ; Start 10/31/18 at 18:21; Stop 10/31/18 at 18:22; Status DC Piperacillin Sod/ Tazobactam Sod 3.375 gm/Sodium Chloride 50 ml @ 100 mls/hr Q6HRS IV Last administered on 11/05/18at 11:31; Start 11/01/18 at 00:00; Stop 11/05/18 at 14:18; Status DC Fentanyl Citrate (Fentanyl 2ml Vial) 100 mcg STK-MED ONCE .ROUTE ; Start at 19:10; Stop 10/31/18 at 19:11; Status DC Hydromorphone HCl (Dilaudid) 2 mg STK-MED ONCE .ROUTE ; Start 10/31/18 at 19:27; Stop 10/31/18 at 19:28; Status DC Prochlorperazine Edisylate (Compazine) 10 mg STK-MED ONCE .ROUTE ; Start 10/31/18 at 19:29; Stop 10/31/18 at 19:30; Status DC Lactobacillus Rhamnosus (Culturelle) 1 cap BID PO Last administered on 11/06/18at 08:20; Start 11/01/18 at 21:00 Oxycodone/ Acetaminophen (Percocet 5/325) 1 tab PRN Q4HRS PRN PO PAIN Last administered on 11/03/18 20:31; Start 11/01/18 at 17:00; Stop 11/03/18 at 21:21; Status DC Oxycodone/ Acetaminophen (Percocet 10/325) 1 tab PRN Q4HRS PRN PO PAIN Last administered on 11/06/18 14:28; Start 11/03/18 at 21:30 Docusate Sodium (Colace) 100 mg BID PO Last administered on 11/06/18 07:58; Start 11/04/18 at 12:00 Tigecycline 100 mg/Dextrose 100 ml @ 200 mls/hr 1X ONCE IV Last administered on 11/05/18 14:46; Start 11/05/18 at 14:30; Stop 11/05/18 at 14:59; Status DC Tigecycline 50 mg/ Dextrose 50 ml @ 100 mls/hr Q12HR IV Last administered on 11/06/18 08:37; Start 11/05/18 at 21:00 Ondansetron HCl (Zofran) 4 mg PRN Q8HRS PRN IV NAUSEA/VOMITING Last admini stered on 11/06/18 07:58; Start 11/06/18 at 00:30 Vitals/I & O Vital Sign - Last 24 Hours 11/05/18 11/05/18 11/05/18 11/05/18 15:00 16:53 19:00 20:00 Temp 98.7 98.1 98.7 98.1 Pulse 88 70 Resp 18 18 B/P (MAP) 151/101 (118) 173/92 (119) Pulse Ox 100 99 O2 Delivery Room Air Room Air Room Air Room Air 11/05/18 11/05/18 11/06/18 11/06/18 23:00 23:41 03:00 07:00 Temp 98.1 98.6 98.5 98.1 98.6 98.5 Pulse 70 79 61 Resp 18 18 18 B/P (MAP) 160/82 (108) 140/81 (100) 161/124 (136) Pulse Ox 100 95 100 O2 Delivery Room Air Room Air Room Air Room Air 11/06/18 11/06/18 11/06/18 11/06/18 07:42 08:00 11:00 14:28 Temp 98.5 98.5 Pulse 66 Resp 18 B/P (MAP) 124/79 (94) Pulse Ox 94 O2 Delivery Room Air Room Air Room Air Room Air Intake and Output 11/05/18 11/05/18 11/06/18 15:00 23:00 07:00 Intake Total 320 ml 660 ml 420 ml Output Total 950 ml Balance 320 ml 660 ml -530 ml HUE ARGUETA MD November 06, 2018 14:59
[2018-11-06 15:00] VITALS: BP 139/94
[2018-11-06 19:00] VITALS: BP 175/106
[2018-11-06] MEDS ORDERED: diphenhydrAMINE HCL 25 MG CAPSULE PO ONE (22:00)
[2018-11-06 23:00] VITALS: BP 151/89
[2018-11-07] MEDS: diphenhydrAMINE HCL 25 MG CAPSULE PO PRN ×2 (01:14→23:24)
[2018-11-07] MEDS: amLODIPine BESYLATE 10 MG TABLET PO SCH ×2 (01:19→20:26)
[2018-11-07 03:00] VITALS: BP 121/81
[2018-11-07 06:57] LABS: BASO # 0.1 x10^3/uL (0.0-0.2); BASO % 1 % (0-3); EOS # 0.3 x10^3/uL (0.0-0.7); EOS % 4 % (0-3); HEMATOCRIT 47.2 % (39.0-53.0); HEMOGLOBIN 15.8 g/dL (13.0-17.5); LYMPH # 2.4 x10^3/uL (1.0-4.8); LYMPH % 27 % (24-48); MEAN CORPUSCULAR HEMOGLOBIN 27 pg (25-35); MEAN CORPUSCULAR HGB CONC 33 g/dL (31-37); MEAN CORPUSCULAR VOLUME 81 fL (79-100); MONO # 0.8 x10^3/uL (0.0-1.1); MONO % 10 % (0-9); NEUT # 5.1 x10^3uL (1.8-7.7); NEUT % 58 % (31-73); PLATELET COUNT 277 x10^3/uL (140-400); RED CELL DISTRIBUTION WIDTH 14.1 % (11.5-14.5); WHITE BLOOD COUNT 8.7 x10^3/uL (4.0-11.0)
[2018-11-07 06:58] LABS: CALCIUM 8.9 mg/dL (8.5-10.1); CREATININE 0.9 mg/dL (0.7-1.3); GFR 116.9; POTASSIUM 4.4 mmol/L (3.5-5.1)
[2018-11-07 07:00] VITALS: BP 133/93
[2018-11-07] MEDS: TIGECYCLINE 50 MG in IV DEXTROSE 5% 50 ML IV SCH ×2 (08:39→20:34)
[2018-11-07] MEDS: DOCUSATE SODIUM 100 MG CAPSULE. PO SCH ×2 (08:40→20:26)
[2018-11-07] MEDS: oxyCODONE/APAP 10/325 1 TAB TABLET PO PRN ×2 (08:40→20:30)
[2018-11-07] MEDS: ENOXAPARIN 40 MG/0.4 ML SYRINGE. SQ SCH (08:40)
[2018-11-07] MEDS: CELECOXIB 100 MG CAPSULE. PO SCH ×2 (08:40→20:26)
[2018-11-07] MEDS: LACTOBACILLUS RHAMNOSUS GG 1 CAPSULE. PO SCH ×2 (08:49→20:26)
--- NOTE | 2018-11-07 09:39 | PDOC ---
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 HEART: S1, S2 regular. ABDOMEN: Soft and nontender EXTREMITIES: First finger on the left is bandaged with clean dry and intact dressing SKIN: No rash NEUROLOGIC: Responds appropriately RUE-PICC clean General: Alert, Oriented X3, Cooperative, No acute distress Heart: Regular rate, Normal S1, Normal S2, No murmurs Lungs: Clear Abdomen: Normal bowel sounds, Soft, No tenderness Extremities: No clubbing, No cyanosis, Normal pulses Skin: No breakdown Labs LABS Laboratory Tests Test 11/07/18 06:25 White Blood Count 8.7 x10^3/uL (4.0-11.0) Red Blood Count 5.80 x10^6/uL (4.30-5.70) Hemoglobin 15.8 g/dL (13.0-17.5) Hematocrit 47.2 % (39.0-53.0) Mean Corpuscular Volume 81 fL (79-100) Mean Corpuscular Hemoglobin 27 pg (25-35) Mean Corpuscular Hemoglobin Concent 33 g/dL (31-37) Red Cell Distribution Width 14.1 % (11.5-14.5) Platelet Count 277 x10^3/uL (140-400) Neutrophils (%) (Auto) 58 % (31-73) Lymphocytes (%) (Auto) 27 % (24-48) Monocytes (%) (Auto) 10 % (0-9) Eosinophils (%) (Auto) 4 % (0-3) Basophils (%) (Auto) 1 % (0-3) Neutrophils # (Auto) 5.1 x10^3uL (1.8-7.7) Lymphocytes # (Auto) 2.4 x10^3/uL (1.0-4.8) Monocytes # (Auto) 0.8 x10^3/uL (0.0-1.1) Eosinophils # (Auto) 0.3 x10^3/uL (0.0-0.7) Basophils # (Auto) 0.1 x10^3/uL (0.0-0.2) Sodium Level 138 mmol/L (136-145) Potassium Level 4.4 mmol/L (3.5-5.1) Chloride Level 103 mmol/L (98-107) Carbon Dioxide Level 28 mmol/L (21-32) Anion Gap 7 (6-14) Blood Urea Nitrogen 12 mg/dL (8-26) Creatinine 0.9 mg/dL (0.7-1.3) Estimated GFR (Cockcroft-Gault) 116.9 Glucose Level 96 mg/dL (70-99) Calcium Level 8.9 mg/dL (8.5-10.1) Review of Systems Review of Systems left finger pain, the rest of ROS 14 point negative Assessment and Plan Assessmemt and Plan Problems Medical Problems: (1) Finger fracture Status: Acute (2) Tenosynovitis Status: Acute Comment Review of Relevant I have reviewed the following items dev (where applicable) has been applied. Labs Laboratory Tests Test 11/07/18 06:25 White Blood Count 8.7 x10^3/uL (4.0-11.0) Red Blood Count 5.80 x10^6/uL (4.30-5.70) Hemoglobin 15.8 g/dL (13.0-17.5) Hematocrit 47.2 % (39.0-53.0) Mean Corpuscular Volume 81 fL (79-100) Mean Corpuscular Hemoglobin 27 pg (25-35) Mean Corpuscular Hemoglobin Concent 33 g/dL (31-37) Red Cell Distribution Width 14.1 % (11.5-14.5) Platelet Count 277 x10^3/uL (140-400) Neutrophils (%) (Auto) 58 % (31-73) Lymphocytes (%) (Auto) 27 % (24-48) Monocytes (%) (Auto) 10 % (0-9) Eosinophils (%) (Auto) 4 % (0-3) Basophils (%) (Auto) 1 % (0-3) Neutrophils # (Auto) 5.1 x10^3uL (1.8-7.7) Lymphocytes # (Auto) 2.4 x10^3/uL (1.0-4.8) Monocytes # (Auto) 0.8 x10^3/uL (0.0-1.1) Eosinophils # (Auto) 0.3 x10^3/uL (0.0-0.7) Basophils # (Auto) 0.1 x10^3/uL (0.0-0.2) Sodium Level 138 mmol/L (136-145) Potassium Level 4.4 mmol/L (3.5-5.1) Chloride Level 103 mmol/L (98-107) Carbon Dioxide Level 28 mmol/L (21-32) Anion Gap 7 (6-14) Blood Urea Nitrogen 12 mg/dL (8-26) Creatinine 0.9 mg/dL (0.7-1.3) Estimated GFR (Cockcroft-Gault) 116.9 Glucose Level 96 mg/dL (70-99) Calcium Level 8.9 mg/dL (8.5-10.1) Laboratory Tests Test 11/07/18 06:25 White Blood Count 8.7 x10^3/uL (4.0-11.0) Red Blood Count 5.80 x10^6/uL (4.30-5.70) Hemoglobin 15.8 g/dL (13.0-17.5) Hematocrit 47.2 % (39.0-53.0) Mean Corpuscular Volume 81 fL (79-100) Mean Corpuscular Hemoglobin 27 pg (25-35) Mean Corpuscular Hemoglobin Concent 33 g/dL (31-37) Red Cell Distribution Width 14.1 % (11.5-14.5) Platelet Count 277 x10^3/uL (140-400) Neutrophils (%) (Auto) 58 % (31-73) Lymphocytes (%) (Auto) 27 % (24-48) Monocytes (%) (Auto) 10 % (0-9) Eosinophils (%) (Auto) 4 % (0-3) Basophils (%) (Auto) 1 % (0-3) Neutrophils # (Auto) 5.1 x10^3uL (1.8-7.7) Lymphocytes # (Auto) 2.4 x10^3/uL (1.0-4.8) Monocytes # (Auto) 0.8 x10^3/uL (0.0-1.1) Eosinophils # (Auto) 0.3 x10^3/uL (0.0-0.7) Basophils # (Auto) 0.1 x10^3/uL (0.0-0.2) Sodium Level 138 mmol/L (136-145) Potassium Level 4.4 mmol/L (3.5-5.1) Chloride Level 103 mmol/L (98-107) Carbon Dioxide Level 28 mmol/L (21-32) Anion Gap 7 (6-14) Blood Urea Nitrogen 12 mg/dL (8-26) Creatinine 0.9 mg/dL (0.7-1.3) Estimated GFR (Cockcroft-Gault) 116.9 Glucose Level 96 mg/dL (70-99) Calcium Level 8.9 mg/dL (8.5-10.1) Microbiology 10/31/18 Blood Culture - Final, Complete NO GROWTH AFTER 5 DAYS 10/31/18 Anaerobic/Aerobic Culture - Final, Complete 10/31/18 Anaerobic Culture Result 1 (NANETTE) - Final, Complete 10/31/18 Aerobic Culture - Final, Complete 10/31/18 Aerobic Culture Result 1 (NANETTE) - Final, Complete 10/31/18 Aerobic Culture Result 2 (NANETTE) - Final, Complete 10/31/18 Aerobic Culture Result 3 (NANETTE) - Final, Complete 10/31/18 Antimicrobic Susceptibility - Final, Complete 10/31/18 Gram Stain - Final, Complete 10/31/18 Gram Stain Result 1 (NANETTE) - Final, Complete 10/31/18 Gram Stain Result 2 (NANETTE) - Final, Complete 10/31/18 Gram Stain Result 3 (NANETTE) - Final, Complete Medications Current Medications Sodium Chloride 1,000 ml @ 1,000 mls/hr 1X ONCE IV Last administered on 10/31/18at 12:29; Start 10/31/18 at 12:00; Stop 10/31/18 at 12:59; Status DC Fentanyl Citrate (Fentanyl 2ml Vial) 50 mcg 1X ONCE IV Last administered on 10/31/18at 12:30; Start 10/31/18 at 12:00; Stop 10/31/18 at 12:01; Status DC Ampicillin Sodium/ Sulbactam Sodium 3 gm/Sodium Chloride 100 ml @ 200 mls/hr 1X ONCE IV Last administered on 10/31/18at 14:05; Start 10/31/18 at 13:30; Stop 10/31/18 at 13:59; Status DC Ondansetron HCl (Zofran) 4 mg PRN Q8HRS PRN IV NAUSEA/VOMITING; Start 10/31/18 at 13:30; Stop 11/01/18 at 13:29; Status DC Morphine Sulfate (Morphine Sulfate) 4 mg PRN Q2HR PRN IV MODERATE PAIN Last administered on 11/01/18at 06:04; Start 10/31/18 at 13:30; Stop 11/01/18 at 13:29; Status DC Fentanyl Citrate (Fentanyl 2ml Vial) 50 mcg PRN Q1HR PRN IV SEVERE PAIN; Start 10/31/18 at 13:30; Stop 11/01/18 at 13:29; Status DC Sodium Chloride 1,000 ml @ 125 mls/hr Q8H IV Last administered on 10/31/18at 15:06; Start 10/31/18 at 13:18; Stop 11/01/18 at 13:17; Status DC Ondansetron HCl (Zofran) 4 mg PRN Q6HRS PRN IV NAUSEA/VOMITING; Start 10/31/18 at 13:45; Stop 11/01/18 at 13:44; Status UNV Fentanyl Citrate (Fentanyl 2ml Vial) 25 mcg PRN Q5MIN PRN IV MILD PAIN; Start 10/31/18 at 13:45; Stop 11/01/18 at 13:44; Status UNV Fentanyl Citrate (Fentanyl 2ml Vial) 50 mcg PRN Q5MIN PRN IV MODERATE TO SEVERE PAIN; Start 10/31/18 at 13:45; Stop 11/01/18 at 13:44; Status UNV Morphine Sulfate (Morphine Sulfate) 1 mg PRN Q10MIN PRN IV SEVERE PAIN; Start 10/31/18 at 13:45; Stop 11/01/18 at 13:44; Status UNV Ringer's Solution 1,000 ml @ 30 mls/hr Q24H IV ; Start 10/31/18 at 13:31; Stop 11/01/18 at 01:30; Status UNV Lidocaine HCl (Xylocaine-Mpf 1% 2ml Vial) 2 ml 1X PRN PRN ID IV START; Start 10/31/18 at 13:45; Stop 11/01/18 at 13:44; Status UNV Hydromorphone HCl (Dilaudid) 0.5 mg PRN Q10MIN PRN IV SEV PAIN, Second choice; Start 10/31/18 at 13:45; Stop 11/01/18 at 13:44; Status UNV Prochlorperazine Edisylate (Compazine) 5 mg PACU PRN PRN IV NAUSEA, MRX1; Start 10/31/18 at 13:45; Stop 11/01/18 at 13:44; Status UNV Ondansetron HCl (Zofran) 4 mg PRN Q6HRS PRN IV NAUSEA/VOMITING; Start 10/31/18 at 13:45; Stop 11/01/18 at 13:44; Status DC Fentanyl Citrate (Fentanyl 2ml Vial) 25 mcg PRN Q5MIN PRN IV MILD PAIN; Start 10/31/18 at 13:45; Stop 11/01/18 at 13:44; Status DC Fentanyl Citrate (Fentanyl 2ml Vial) 50 mcg PRN Q5MIN PRN IV MODERATE TO SEVERE PAIN Last administered on 10/31/18at 19:24; Start 10/31/18 at 13:45; Stop 11/01/18 at 13:44; Status DC Morphine Sulfate (Morphine Sulfate) 1 mg PRN Q10MIN PRN IV SEVERE PAIN; Start 10/31/18 at 13:45; Stop 11/01/18 at 13:44; Status DC Ringer's Solution 1,000 ml @ 30 mls/hr Q24H IV ; Start 10/31/18 at 13:31; Stop 11/01/18 at 01:30; Status DC Lidocaine HCl (Xylocaine-Mpf 1% 2ml Vial) 2 ml 1X PRN PRN ID IV START; Start 10/31/18 at 13:45; Stop 11/01/18 at 13:44; Status DC Hydromorphone HCl (Dilaudid) 0.5 mg PRN Q10MIN PRN IV SEV PAIN, Second choice Last administered on 10/31/18at 20:03; Start 10/31/18 at 13:45; Stop 11/01/18 at 13:44; Status DC Prochlorperazine Edisylate (Compazine) 5 mg PACU PRN PRN IV NAUSEA, MRX1 Last administered on 10/31/18at 19:44; Start 10/31/18 at 13:45; Stop 11/01/18 at 13:44; Status DC Propofol 20 ml @ As Directed STK-MED ONCE IV ; Start 10/31/18 at 16:00; Stop 10/31/18 at 16:02; Status DC Lidocaine HCl (Lidocaine Pf 2% Vial) 5 ml STK-MED ONCE .ROUTE ; Start 10/31/18 at 16:00; Stop 10/31/18 at 16:02; Status DC Fentanyl Citrate (Fentanyl 2ml Vial) 100 mcg STK-MED ONCE .ROUTE ; Start 10/31/18 at 16:01; Stop 10/31/18 at 16:04; Status DC Midazolam HCl (Versed) 2 mg STK-MED ONCE .ROUTE ; Start 10/31/18 at 17:34; Stop 10/31/18 at 17:35; Status DC Ondansetron HCl (Zofran) 4 mg STK-MED ONCE .ROUTE ; Start 10/31/18 at 17:57; Stop 10/31/18 at 17:58; Status DC Ketorolac Tromethamine (Toradol For Or Only) 30 mg STK-MED ONCE INJ ; Start 10/31/18 at 17:57; Stop 10/31/18 at 17:58; Status DC Dexamethasone Sodium Phosphate (Decadron) 4 mg STK-MED ONCE .ROUTE ; Start 10/31/18 at 17:57; Stop 10/31/18 at 17:58; Status DC Ampicillin Sodium/ Sulbactam Sodium 3 gm/Sodium Chloride 100 ml @ 200 mls/hr 1X ONCE IV Last administered on 10/31/18at 18:19; Start 10/31/18 at 18:15; Stop 10/31/18 at 18:44; Status DC Piperacillin Sod/ Tazobactam Sod 3.375 gm/Sodium Chloride 50 ml @ 100 mls/hr Q6HRS IV ; Start 10/31/18 at 18:30; Status Cancel Enoxaparin Sodium (Lovenox 40mg Syringe) 40 mg Q24H SQ Last administered on 11/07/18 08:40; Start 11/01/18 at 09:00 Fentanyl Citrate (Fentanyl 2ml Vial) 100 mcg STK-MED ONCE .ROUTE ; Start 10/31/18 at 18:21; Stop 10/31/18 at 18:22; Status DC Piperacillin Sod/ Tazobactam Sod 3.375 gm/Sodium Chloride 50 ml @ 100 mls/hr Q6HRS IV Last administered on 11/05/18 11:31; Start 11/01/18 at 00:00; Stop 11/05/18 at 14:18; Status DC Fentanyl Citrate (Fentanyl 2ml Vial) 100 mcg STK-MED ONCE .ROUTE ; Start 10/31/18 at 19:10; Stop 10/31/18 at 19:11; Status DC Hydromorphone HCl (Dilaudid) 2 mg STK-MED ONCE .ROUTE ; Start 10/31/18 at 19:27; Stop 10/31/18 at 19:28; Status DC Prochlorperazine Edisylate (Compazine) 10 mg STK-MED ONCE .ROUTE ; Start 10/31/18 at 19:29; Stop 10/31/18 at 19:30; Status DC Lactobacillus Rhamnosus (Culturelle) 1 cap BID PO Last administered on 11/06/18 20:37; Start 11/01/18 at 21:00 Oxycodone/ Acetaminophen (Percocet 5/325) 1 tab PRN Q4HRS PRN PO PAIN Last administered on 11/03/18 20:31; Start 11/01/18 at 17:00; Stop 11/03/18 at 21:21; Status DC Oxycodone/ Acetaminophen (Percocet 10/325) 1 tab PRN Q4HRS PRN PO PAIN Last administered on 11/07/18 08:40; Start 11/03/18 at 21:30 Docusate Sodium (Colace) 100 mg BID PO Last administered on 11/07/18 08:40; Start 11/04/18 at 12:00 Tigecycline 100 mg/Dextrose 100 ml @ 200 mls/hr 1X ONCE IV Last administered on 11/05/18 14:46; Start 11/05/18 at 14:30; Stop 11/05/18 at 14:59; Status DC Tigecycline 50 mg/ Dextrose 50 ml @ 16.6 mls/hr Q12HR IV Last administered on 11/07/18 08:39; Start 11/05/18 at 21:00 Ondansetron HCl (Zofran) 4 mg PRN Q8HRS PRN IV NAUSEA/VOMITING Last administ ered on 11/06/18at 07:58; Start 11/06/18 at 00:30 Amlodipine Besylate (Norvasc) 10 mg QHS PO Last administered on 11/07/18 01:19; Start 11/06/18 at 22:00 Diphenhydramine HCl (Benadryl) 25 mg 1X ONCE PO Last administered on 11/06/18at 22:21; Start 11/06/18 at 22:00; Stop 11/06/18 at 22:01; Status DC Diphenhydramine HCl (Benadryl) 25 mg PRN QHS PRN PO INSOMNIA Last administered on 11/07/18 01:14; Start 11/06/18 at 22:00 Celecoxib (CeleBREX) 200 mg BID PO Last administered on 11/07/18 08:40; Start 11/07/18 at 09:00 Vitals/I & O Vital Sign - Last 24 Hours 11/06/18 11/06/18 11/06/18 11/06/18 11:00 14:28 15:00 19:00 Temp 98.5 98.5 98.8 98.5 98.5 98.8 Pulse 66 72 70 Resp 18 16 18 B/P (MAP) 124/79 (94) 139/94 (109) 175/106 (129) Pulse Ox 94 100 100 O2 Delivery Room Air Room Air Room Air Room Air O2 Flow Rate 8.0 11/06/18 11/06/18 11/06/18 11/06/18 19:30 22:22 23:00 23:30 Temp 98.9 98.9 Pulse 59 Resp 17 18 14 B/P (MAP) 151/89 (109) Pulse Ox 100 100 100 O2 Delivery Room Air Room Air Room Air Room Air O2 Flow Rate 8.0 11/07/18 11/07/18 11/07/18 11/07/18 01:19 03:00 07:00 08:40 Temp 98.9 98.6 98.9 98.6 Pulse 63 59 80 Resp 18 18 B/P (MAP) 160/85 121/81 (94) 133/93 (106) Pulse Ox 100 100 O2 Delivery Room Air Room Air Room Air O2 Flow Rate 8.0 Intake and Output 11/06/18 11/06/18 11/07/18 15:00 23:00 07:00 Intake Total 540 ml 480 ml 100 ml Output Total 0 ml Balance 540 ml 480 ml 100 ml YOSVANY LUNA MD November 07, 2018 09:39
--- NOTE | 2018-11-07 10:18 | PDOC ---
Infectious Disease Note Subjective Subjective c/o limited ROM No further vomiting after running abx in slowly No fevers Vital Sign Vital Signs Vital Signs Date Time Temp Pulse Resp B/P (MAP) Pulse Ox O2 Delivery O2 Flow Rate FiO2 11/07/18 08:40 Room Air 11/07/18 07:00 98.6 80 18 133/93 (106) 100 98.6 11/07/18 03:00 8.0 Physical Exam PHYSICAL EXAM GENERAL: Propped up in bed, alert, NAD LUNGS: Clear. HEART: S1, S2 regular. ABDOMEN: Soft and nontender EXTREMITIES: First finger on the left slight swollen, limited flexion, tender, sutures in place, no redness SKIN: No rash NEUROLOGIC: Alert and responds appropriately RUE-PICC clean Labs Lab Laboratory Tests Test 11/07/18 06:25 White Blood Count 8.7 x10^3/uL (4.0-11.0) Red Blood Count 5.80 x10^6/uL (4.30-5.70) Hemoglobin 15.8 g/dL (13.0-17.5) Hematocrit 47.2 % (39.0-53.0) Mean Corpuscular Volume 81 fL (79-100) Mean Corpuscular Hemoglobin 27 pg (25-35) Mean Corpuscular Hemoglobin Concent 33 g/dL (31-37) Red Cell Distribution Width 14.1 % (11.5-14.5) Platelet Count 277 x10^3/uL (140-400) Neutrophils (%) (Auto) 58 % (31-73) Lymphocytes (%) (Auto) 27 % (24-48) Monocytes (%) (Auto) 10 % (0-9) Eosinophils (%) (Auto) 4 % (0-3) Basophils (%) (Auto) 1 % (0-3) Neutrophils # (Auto) 5.1 x10^3uL (1.8-7.7) Lymphocytes # (Auto) 2.4 x10^3/uL (1.0-4.8) Monocytes # (Auto) 0.8 x10^3/uL (0.0-1.1) Eosinophils # (Auto) 0.3 x10^3/uL (0.0-0.7) Basophils # (Auto) 0.1 x10^3/uL (0.0-0.2) Sodium Level 138 mmol/L (136-145) Potassium Level 4.4 mmol/L (3.5-5.1) Chloride Level 103 mmol/L (98-107) Carbon Dioxide Level 28 mmol/L (21-32) Anion Gap 7 (6-14) Blood Urea Nitrogen 12 mg/dL (8-26) Creatinine 0.9 mg/dL (0.7-1.3) Estimated GFR (Cockcroft-Gault) 116.9 Glucose Level 96 mg/dL (70-99) Calcium Level 8.9 mg/dL (8.5-10.1) Micro ANAEROBIC RES 1 Final No anaerobic growth in 72 hours. AEROBIC RES 1 Final Staphylococcus aureus y. AEROBIC RES 2 Final Comment Acinetobacter baumannii Scant growth Multi-Drug Resistant Organism AEROBIC RES 3 Final Mixed skin elizabeth 2+ ANTIMICROBIAL SUSCEPTIBILITY Final MICS are expressed in micrograms per mL Antibiotic RSLT#1 RSLT#2 Ampicillin/Sulbactam R =R Cefepime R>=64 Cefotaxime R>=64 Ceftazidime R>=64 Ceftriaxone R>=64 Ciprofloxacin S<=0.5 R>=4 Clindamycin S<=0.25 Erythromycin S<=0.25 Gentamicin S<=0.5 S<=1 Imipenem R>=16 Levofloxacin S =0.25 R>=8 Linezolid S =2 Meropenem I =8 Moxifloxacin S<=0.25 Oxacillin S =0.5 Piperacillin R>=128 Quinupristin/Dalfopristin S<=0.25 Rifampin S<=0.5 Tetracycline S<=1 R>=16 Tobramycin S<=1 Trimethoprim/Sulfa S<=10 R>=320 Vancomycin S =1 Objective Assessment Left index finger infection s/p I and D, 10/31. MSSA and MDR Acinetobacter (sensitive only to tobra and gent; I meropenem) Left index finger open distal phalanx communited fracture s/p surgery 10/31 Drug use HTN Plan Plan of Care Continue Tigecycline (since 11/05), tolerating slow infusion Local wound care as directed Pain management per primary MDR Acinetobacter no options would like to avoid tobra and gent due to potential for JESE D/w nursing D/w Dr. Eliza TROTTER to assist with discharge tigecycline script given for 10 days then will need f/u in our clinic to decide on further duration of tx MOSES HICKMAN APRN November 07, 2018 10:18 ASHLEY CURIEL MD November 07, 2018 12:32
--- NOTE | 2018-11-07 10:32 | NUR ---
IP: Pt has a MRO-Acinetobacter in finger wound requiring contact precautions.
[2018-11-07 11:00] VITALS: BP 140/101
[2018-11-07] MEDS ORDERED: AMLO10TA8 PO (13:09)
[2018-11-07] MEDS ORDERED: CELE100C PO (13:09)
[2018-11-07] MEDS ORDERED: LACT1CAP19 PO (13:09)
[2018-11-07] MEDS ORDERED: OXYC1TAB22 PO (13:09)
--- NOTE | 2018-11-07 13:10 | SNU/HH DC ---
DISCHARGE ORDERS DISCHARGE INFORMATION: DISCHARGE DATE: November 07, 2018 FINAL DIAGNOSIS Problems Medical Problems: (1) Finger fracture Status: Acute (2) Tenosynovitis Status: Acute CODE STATUS: Code Status: Full [facility]: SNF STAY <30 DAYS: No HOSPICE: HOSPICE: No HOSPICE EVAL & TREAT: No LTAC: ADMIT TO LTAC: No POST DISCHARGE ORDERS: ACTIVITY ORDERS: No restrictions, Activity as tolerated WEIGHT BEARING STATUS: No restrictions DIET AFTER DISCHARGE: Regular CHECKS AFTER DISCHARGE: CHECKS AFTER DISCHARGE: Check blood press - daily FOLLOW-UP: PHYSICIAN FOLLOW-UP: ff up ID after 10 days TREATMENT/EQUIPMENT ORDERS: INFUSION EQUIPMENT NEEDED: PICC Line DISCHARGE MEDICATIONS: Home Meds Active Scripts Lactobacillus Rhamnosus Gg (CULTURELLE) 1 Each Cap.sprink, 1 CAP PO BID for probiotic MDD 1 for 10 Days, #20 CAP Prov:YOSVANY LUNA MD 11/07/18 Oxycodone/Apap 10-325 (PERCOCET 10-325 MG TABLET ) 1 Each Tablet, 1 TAB PO PRN Q4HRS PRN for PAIN MDD 1, #30 TAB Prov:YOSVANY LUNA MD 11/07/18 Celecoxib (CELEBREX) 100 Mg Capsule, 200 MG PO BID for pain MDD 1, #60 CAP Prov:YOSVANY LUNA MD 11/07/18 Amlodipine Besylate (AMLODIPINE BESYLATE) 10 Mg Tablet, 10 MG PO QHS for htn MDD 1, #60 TAB Prov:YOSVANY LUNA MD 11/07/18 YOSVANY LUNA MD November 07, 2018 13:10
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
[2018-11-07 15:00] VITALS: BP 156/125
--- NOTE | 2018-11-07 15:26 | NUR ---
Pt requested pain meds via call light. Went to pt's room @ 1525, pt appeared to be sleeping. As this nurse was speaking with the guard letting him know that I would not wake up the pt to give him pain meds, pt stated that he has been waiting for pain med but doesn't want them now because he's been "waiting too long". Verified with pt again before leaving patient's room that he did not want pain medication at this time, pt declined.
--- NOTE | 2018-11-07 16:40 | NUR ---
1600 pain assessment - went to pt's room to assess pain, pt's response was "I have nothing to say to you". Let pt know to have guard press call light if he needs anything. Will continue to monitor.
[2018-11-07 19:00] VITALS: BP 153/85
[2018-11-07] MEDS: ONDANSETRON PF 4 MG/2 ML VIAL. IV PRN (20:34)
[2018-11-07 23:00] VITALS: BP 158/101
[2018-11-08 03:00] VITALS: BP 140/89
[2018-11-08 07:00] VITALS: BP 143/75
[2018-11-08] MEDS: CELECOXIB 100 MG CAPSULE. PO SCH ×2 (08:18→21:44)
[2018-11-08] MEDS: DOCUSATE SODIUM 100 MG CAPSULE. PO SCH ×2 (08:19→21:00)
[2018-11-08] MEDS: LACTOBACILLUS RHAMNOSUS GG 1 CAPSULE. PO SCH ×2 (08:19→21:44)
[2018-11-08] MEDS: ONDANSETRON PF 4 MG/2 ML VIAL. IV PRN (08:20)
[2018-11-08] MEDS: ENOXAPARIN 40 MG/0.4 ML SYRINGE. SQ SCH (08:21)
[2018-11-08] MEDS: TIGECYCLINE 50 MG in IV DEXTROSE 5% 50 ML IV SCH ×2 (08:21→21:00)
--- NOTE | 2018-11-08 10:41 | PDOC ---
Infectious Disease Note Subjective Subjective Discharge cancelled c/o nausea, pain and sweats No fevers Vital Sign Vital Signs Vital Signs Date Time Temp Pulse Resp B/P (MAP) Pulse Ox O2 Delivery O2 Flow Rate FiO2 11/08/18 07:00 98.4 80 19 143/75 (97) 100 Room Air 98.4 Physical Exam PHYSICAL EXAM GENERAL: Sleeping, arouses easily to name LUNGS: Clear. HEART: S1, S2 regular. ABDOMEN: Soft and nontender EXTREMITIES: left hand bandaged, SKIN: moist NEUROLOGIC: Responds appropriately RUE-PICC clean Labs Micro ANAEROBIC RES 1 Final No anaerobic growth in 72 hours. AEROBIC RES 1 Final Staphylococcus aureus y. AEROBIC RES 2 Final Comment Acinetobacter baumannii Scant growth Multi-Drug Resistant Organism AEROBIC RES 3 Final Mixed skin elizabeth 2+ ANTIMICROBIAL SUSCEPTIBILITY Final MICS are expressed in micrograms per mL Antibiotic RSLT#1 RSLT#2 Ampicillin/Sulbactam R =R Cefepime R>=64 Cefotaxime R>=64 Ceftazidime R>=64 Ceftriaxone R>=64 Ciprofloxacin S<=0.5 R>=4 Clindamycin S<=0.25 Erythromycin S<=0.25 Gentamicin S<=0.5 S<=1 Imipenem R>=16 Levofloxacin S =0.25 R>=8 Linezolid S =2 Meropenem I =8 Moxifloxacin S<=0.25 Oxacillin S =0.5 Piperacillin R>=128 Quinupristin/Dalfopristin S<=0.25 Rifampin S<=0.5 Tetracycline S<=1 R>=16 Tobramycin S<=1 Trimethoprim/Sulfa S<=10 R>=320 Vancomycin S =1 Objective Assessment Left index finger infection s/p I and D, 10/31. MSSA and MDR Acinetobacter (sensitive only to tobra and gent; I meropenem) Left index finger open distal phalanx communited fracture s/p surgery 10/31 Drug use HTN Plan Plan of Care Continue Tigecycline (since 11/05), slow infusion limited options Local wound care as directed Pain management per primary would like to avoid tobra and gent due to potential for JESE Local wound care per ortho D/w nursing Patient seen, examined, I agree with above Assessment and plan coformulated with PLASTIC SURGERY SPECIALIST. MOSES HICKMAN CANE PILER November 08, 2018 10:41 ASHLEY CURIEL MD November 08, 2018 11:17
[2018-11-08 11:00] VITALS: BP 146/94
[2018-11-08 12:21] LABS: BASO # 0.1 x10^3/uL (0.0-0.2); BASO % 1 % (0-3); EOS # 0.3 x10^3/uL (0.0-0.7); EOS % 3 % (0-3); HEMATOCRIT 49.8 % (39.0-53.0); HEMOGLOBIN 16.5 g/dL (13.0-17.5); LYMPH # 2.1 x10^3/uL (1.0-4.8); LYMPH % 25 % (24-48); MEAN CORPUSCULAR HEMOGLOBIN 27 pg (25-35); MEAN CORPUSCULAR HGB CONC 33 g/dL (31-37); MEAN CORPUSCULAR VOLUME 82 fL (79-100); MONO # 0.6 x10^3/uL (0.0-1.1); MONO % 8 % (0-9); NEUT # 5.4 x10^3uL (1.8-7.7); NEUT % 64 % (31-73); PLATELET COUNT 306 x10^3/uL (140-400); RED BLOOD COUNT 6.09 x10^6/uL (4.30-5.70); WHITE BLOOD COUNT 8.5 x10^3/uL (4.0-11.0)
--- NOTE | 2018-11-08 13:05 | PDOC ---
PROGRESS NOTES Chief Complaint Chief Complaint MDR acetinobacter, - Sensitive to gent and tobra, intermediate to merrem Human bite by self K2 positive History of Present Illness History of Present Illness MICS are expressed in micrograms per mL Antibiotic RSLT#1 RSLT#2 Ampicillin/Sulbactam R =R Cefepime R>=64 Cefotaxime R>=64 Ceftazidime R>=64 Ceftriaxone R>=64 Ciprofloxacin S<=0.5 R>=4 Clindamycin S<=0.25 Erythromycin S<=0.25 Gentamicin S<=0.5 S<=1 Imipenem R>=16 Levofloxacin S =0.25 R>=8 Linezolid S =2 Meropenem I =8 Moxifloxacin S<=0.25 Oxacillin S =0.5 Piperacillin R>=128 Quinupristin/Dalfopristin S<=0.25 Rifampin S<=0.5 Tetracycline S<=1 R>=16 Tobramycin S<=1 Trimethoprim/Sulfa S<=10 R>=320 Vancomycin S =1 dw with ID ID would not recommend Gent or tobramycin because of [place] I The [place] [facility] facilities having difficulty getting tigecil Next option is minocycline or Augmentin Social work still trying to see if they can get the preferred antibiotic patient has a right-sided PICC HE has no complaints otherwise Vitals Vitals Vital Signs Date Time Temp Pulse Resp B/P (MAP) Pulse Ox O2 Delivery O2 Flow Rate FiO2 11/08/18 11:00 98.1 81 19 146/94 (111) 99 Room Air 98.1 Physical Exam Physical Exam GENERAL: Sleeping, arouses easily to name LUNGS: Clear. HEART: S1, S2 regular. ABDOMEN: Soft and nontender EXTREMITIES: left hand bandaged, SKIN: moist NEUROLOGIC: Responds appropriately RUE-PICC clean General: Alert, Oriented X3, Cooperative, No acute distress Heart: Regular rate, Normal S1, Normal S2, No murmurs Lungs: Clear Abdomen: Normal bowel sounds, Soft, No tenderness Extremities: No clubbing, No cyanosis, Normal pulses Skin: No breakdown Labs LABS Laboratory Tests Test 11/08/18 11:50 White Blood Count 8.5 x10^3/uL (4.0-11.0) Red Blood Count 6.09 x10^6/uL (4.30-5.70) Hemoglobin 16.5 g/dL (13.0-17.5) Hematocrit 49.8 % (39.0-53.0) Mean Corpuscular Volume 82 fL (79-100) Mean Corpuscular Hemoglobin 27 pg (25-35) Mean Corpuscular Hemoglobin Concent 33 g/dL (31-37) Red Cell Distribution Width 14.0 % (11.5-14.5) Platelet Count 306 x10^3/uL (140-400) Neutrophils (%) (Auto) 64 % (31-73) Lymphocytes (%) (Auto) 25 % (24-48) Monocytes (%) (Auto) 8 % (0-9) Eosinophils (%) (Auto) 3 % (0-3) Basophils (%) (Auto) 1 % (0-3) Neutrophils # (Auto) 5.4 x10^3uL (1.8-7.7) Lymphocytes # (Auto) 2.1 x10^3/uL (1.0-4.8) Monocytes # (Auto) 0.6 x10^3/uL (0.0-1.1) Eosinophils # (Auto) 0.3 x10^3/uL (0.0-0.7) Basophils # (Auto) 0.1 x10^3/uL (0.0-0.2) Review of Systems Review of Systems A 14 point ROS was completed with the following noted as positive: Other systems reviewed and negative. \CONSTITUTIONAL: No fever or chills EYES: No recent changes SKIN: No rash or itching CARDIOVASCULAR: No chest pain, syncope, palpitations, or edema RESPIRATORY: No SOB or cough GASTROINTESTINAL: No nausea, vomiting or abdominal pain NEUROLOGICAL: No headaches or weakness ENDOCRINE: No cold or heat intolerance GENITOURINARY: No urgency or frequency of urination MUSCULOSKELETAL: No back pain or joint pain LYMPHATICS: No enlarged lymph nodes PSYCHIATRIC: No anxiety or depression Assessment and Plan Assessmemt and Plan Problems Medical Problems: (1) Finger fracture Status: Acute (2) Tenosynovitis Status: Acute Comment Review of Relevant I have reviewed the following items dev (where applicable) has been applied. Labs Laboratory Tests Test 11/07/18 06:25 11/08/18 11:50 White Blood Count 8.7 x10^3/uL (4.0-11.0) 8.5 x10^3/uL (4.0-11.0) Red Blood Count 5.80 x10^6/uL (4.30-5.70) 6.09 x10^6/uL (4.30-5.70) Hemoglobin 15.8 g/dL (13.0-17.5) 16.5 g/dL (13.0-17.5) Hematocrit 47.2 % (39.0-53.0) 49.8 % (39.0-53.0) Mean Corpuscular Volume 81 fL (79-100) 82 fL (79-100) Mean Corpuscular Hemoglobin 27 pg (25-35) 27 pg (25-35) Mean Corpuscular Hemoglobin Concent 33 g/dL (31-37) 33 g/dL (31-37) Red Cell Distribution Width 14.1 % (11.5-14.5) 14.0 % (11.5-14.5) Platelet Count 277 x10^3/uL (140-400) 306 x10^3/uL (140-400) Neutrophils (%) (Auto) 58 % (31-73) 64 % (31-73) Lymphocytes (%) (Auto) 27 % (24-48) 25 % (24-48) Monocytes (%) (Auto) 10 % (0-9) 8 % (0-9) Eosinophils (%) (Auto) 4 % (0-3) 3 % (0-3) Basophils (%) (Auto) 1 % (0-3) 1 % (0-3) Neutrophils # (Auto) 5.1 x10^3uL (1.8-7.7) 5.4 x10^3uL (1.8-7.7) Lymphocytes # (Auto) 2.4 x10^3/uL (1.0-4.8) 2.1 x10^3/uL (1.0-4.8) Monocytes # (Auto) 0.8 x10^3/uL (0.0-1.1) 0.6 x10^3/uL (0.0-1.1) Eosinophils # (Auto) 0.3 x10^3/uL (0.0-0.7) 0.3 x10^3/uL (0.0-0.7) Basophils # (Auto) 0.1 x10^3/uL (0.0-0.2) 0.1 x10^3/uL (0.0-0.2) Sodium Level 138 mmol/L (136-145) Potassium Level 4.4 mmol/L (3.5-5.1) Chloride Level 103 mmol/L (98-107) Carbon Dioxide Level 28 mmol/L (21-32) Anion Gap 7 (6-14) Blood Urea Nitrogen 12 mg/dL (8-26) Creatinine 0.9 mg/dL (0.7-1.3) Estimated GFR (Cockcroft-Gault) 116.9 Glucose Level 96 mg/dL (70-99) Calcium Level 8.9 mg/dL (8.5-10.1) Laboratory Tests Test 11/08/18 11:50 White Blood Count 8.5 x10^3/uL (4.0-11.0) Red Blood Count 6.09 x10^6/uL (4.30-5.70) Hemoglobin 16.5 g/dL (13.0-17.5) Hematocrit 49.8 % (39.0-53.0) Mean Corpuscular Volume 82 fL (79-100) Mean Corpuscular Hemoglobin 27 pg (25-35) Mean Corpuscular Hemoglobin Concent 33 g/dL (31-37) Red Cell Distribution Width 14.0 % (11.5-14.5) Platelet Count 306 x10^3/uL (140-400) Neutrophils (%) (Auto) 64 % (31-73) Lymphocytes (%) (Auto) 25 % (24-48) Monocytes (%) (Auto) 8 % (0-9) Eosinophils (%) (Auto) 3 % (0-3) Basophils (%) (Auto) 1 % (0-3) Neutrophils # (Auto) 5.4 x10^3uL (1.8-7.7) Lymphocytes # (Auto) 2.1 x10^3/uL (1.0-4.8) Monocytes # (Auto) 0.6 x10^3/uL (0.0-1.1) Eosinophils # (Auto) 0.3 x10^3/uL (0.0-0.7) Basophils # (Auto) 0.1 x10^3/uL (0.0-0.2) Microbiology 10/31/18 Blood Culture - Final, Complete NO GROWTH AFTER 5 DAYS 10/31/18 Anaerobic/Aerobic Culture - Final, Complete 10/31/18 Anaerobic Culture Result 1 (NANETTE) - Final, Complete 10/31/18 Aerobic Culture - Final, Complete 10/31/18 Aerobic Culture Result 1 (NANETTE) - Final, Complete 10/31/18 Aerobic Culture Result 2 (NANETTE) - Final, Complete 10/31/18 Aerobic Culture Result 3 (NANETTE) - Final, Complete 10/31/18 Antimicrobic Susceptibility - Final, Complete 10/31/18 Gram Stain - Final, Complete 10/31/18 Gram Stain Result 1 (NANETTE) - Final, Complete 10/31/18 Gram Stain Result 2 (NNAETTE) - Final, Complete 10/31/18 Gram Stain Result 3 (NANETTE) - Final, Complete Medications Current Medications Sodium Chloride 1,000 ml @ 1,000 mls/hr 1X ONCE IV Last administered on 10/31/18at 12:29; Start 10/31/18 at 12:00; Stop 10/31/18 at 12:59; Status DC Fentanyl Citrate (Fentanyl 2ml Vial) 50 mcg 1X ONCE IV Last administered on 10/31/18at 12:30; Start 10/31/18 at 12:00; Stop 10/31/18 at 12:01; Status DC Ampicillin Sodium/ Sulbactam Sodium 3 gm/Sodium Chloride 100 ml @ 200 mls/hr 1X ONCE IV Last administered on 10/31/18at 14:05; Start 10/31/18 at 13:30; Stop 10/31/18 at 13:59; Status DC Ondansetron HCl (Zofran) 4 mg PRN Q8HRS PRN IV NAUSEA/VOMITING; Start 10/31/18 at 13:30; Stop 11/01/18 at 13:29; Status DC Morphine Sulfate (Morphine Sulfate) 4 mg PRN Q2HR PRN IV MODERATE PAIN Last administered on 11/01/18at 06:04; Start 10/31/18 at 13:30; Stop 11/01/18 at 13:29; Status DC Fentanyl Citrate (Fentanyl 2ml Vial) 50 mcg PRN Q1HR PRN IV SEVERE PAIN; Start 10/31/18 at 13:30; Stop 11/01/18 at 13:29; Status DC Sodium Chloride 1,000 ml @ 125 mls/hr Q8H IV Last administered on 10/31/18at 15:06; Start 10/31/18 at 13:18; Stop 11/01/18 at 13:17; Status DC Ondansetron HCl (Zofran) 4 mg PRN Q6HRS PRN IV NAUSEA/VOMITING; Start 10/31/18 at 13:45; Stop 11/01/18 at 13:44; Status UNV Fentanyl Citrate (Fentanyl 2ml Vial) 25 mcg PRN Q5MIN PRN IV MILD PAIN; Start 10/31/18 at 13:45; Stop 11/01/18 at 13:44; Status UNV Fentanyl Citrate (Fentanyl 2ml Vial) 50 mcg PRN Q5MIN PRN IV MODERATE TO SEVERE PAIN; Start 10/31/18 at 13:45; Stop 11/01/18 at 13:44; Status UNV Morphine Sulfate (Morphine Sulfate) 1 mg PRN Q10MIN PRN IV SEVERE PAIN; Start 10/31/18 at 13:45; Stop 11/01/18 at 13:44; Status UNV Ringer's Solution 1,000 ml @ 30 mls/hr Q24H IV ; Start 10/31/18 at 13:31; Stop 11/01/18 at 01:30; Status UNV Lidocaine HCl (Xylocaine-Mpf 1% 2ml Vial) 2 ml 1X PRN PRN ID IV START; Start 10/31/18 at 13:45; Stop 11/01/18 at 13:44; Status UNV Hydromorphone HCl (Dilaudid) 0.5 mg PRN Q10MIN PRN IV SEV PAIN, Second choice; Start 10/31/18 at 13:45; Stop 11/01/18 at 13:44; Status UNV Prochlorperazine Edisylate (Compazine) 5 mg PACU PRN PRN IV NAUSEA, MRX1; Start 10/31/18 at 13:45; Stop 11/01/18 at 13:44; Status UNV Ondansetron HCl (Zofran) 4 mg PRN Q6HRS PRN IV NAUSEA/VOMITING; Start 10/31/18 at 13:45; Stop 11/01/18 at 13:44; Status DC Fentanyl Citrate (Fentanyl 2ml Vial) 25 mcg PRN Q5MIN PRN IV MILD PAIN; Start 10/31/18 at 13:45; Stop 11/01/18 at 13:44; Status DC Fentanyl Citrate (Fentanyl 2ml Vial) 50 mcg PRN Q5MIN PRN IV MODERATE TO SEVERE PAIN Last administered on 10/31/18at 19:24; Start 10/31/18 at 13:45; Stop 11/01/18 at 13:44; Status DC Morphine Sulfate (Morphine Sulfate) 1 mg PRN Q10MIN PRN IV SEVERE PAIN; Start 10/31/18 at 13:45; Stop 11/01/18 at 13:44; Status DC Ringer's Solution 1,000 ml @ 30 mls/hr Q24H IV ; Start 10/31/18 at 13:31; Stop 11/01/18 at 01:30; Status DC Lidocaine HCl (Xylocaine-Mpf 1% 2ml Vial) 2 ml 1X PRN PRN ID IV START; Start 10/31/18 at 13:45; Stop 11/01/18 at 13:44; Status DC Hydromorphone HCl (Dilaudid) 0.5 mg PRN Q10MIN PRN IV SEV PAIN, Second choice Last administered on 10/31/18at 20:03; Start 10/31/18 at 13:45; Stop 11/01/18 at 13:44; Status DC Prochlorperazine Edisylate (Compazine) 5 mg PACU PRN PRN IV NAUSEA, MRX1 Last administered on 10/31/18at 19:44; Start 10/31/18 at 13:45; Stop 11/01/18 at 13:44; Status DC Propofol 20 ml @ As Directed STK-MED ONCE IV ; Start 10/31/18 at 16:00; Stop 10/31/18 at 16:02; Status DC Lidocaine HCl (Lidocaine Pf 2% Vial) 5 ml STK-MED ONCE .ROUTE ; Start 10/31/18 at 16:00; Stop 10/31/18 at 16:02; Status DC Fentanyl Citrate (Fentanyl 2ml Vial) 100 mcg STK-MED ONCE .ROUTE ; Start 10/31/18 at 16:01; Stop 10/31/18 at 16:04; Status DC Midazolam HCl (Versed) 2 mg STK-MED ONCE .ROUTE ; Start 10/31/18 at 17:34; Stop 10/31/18 at 17:35; Status DC Ondansetron HCl (Zofran) 4 mg STK-MED ONCE .ROUTE ; Start 10/31/18 at 17:57; Stop 10/31/18 at 17:58; Status DC Ketorolac Tromethamine (Toradol For Or Only) 30 mg STK-MED ONCE INJ ; Start 10/31/18 at 17:57; Stop 10/31/18 at 17:58; Status DC Dexamethasone Sodium Phosphate (Decadron) 4 mg STK-MED ONCE .ROUTE ; Start 10/31/18 at 17:57; Stop 10/31/18 at 17:58; Status DC Ampicillin Sodium/ Sulbactam Sodium 3 gm/Sodium Chloride 100 ml @ 200 mls/hr 1X ONCE IV Last administered on 10/31/18at 18:19; Start 10/31/18 at 18:15; Stop 10/31/18 at 18:44; Status DC Piperacillin Sod/ Tazobactam Sod 3.375 gm/Sodium Chloride 50 ml @ 100 mls/hr Q6HRS IV ; Start 10/31/18 at 18:30; Status Cancel Enoxaparin Sodium (Lovenox 40mg Syringe) 40 mg Q24H SQ Last administered on 11/08/18at 08:21; Start 11/01/18 at 09:00 Fentanyl Citrate (Fentanyl 2ml Vial) 100 mcg STK-MED ONCE .ROUTE ; Start 10/31/18 at 18:21; Stop 10/31/18 at 18:22; Status DC Piperacillin Sod/ Tazobactam Sod 3.375 gm/Sodium Chloride 50 ml @ 100 mls/hr Q6HRS IV Last administered on 11/05/18at 11:31; Start 11/01/18 at 00:00; Stop 11/05/18 at 14:18; Status DC Fentanyl Citrate (Fentanyl 2ml Vial) 100 mcg STK-MED ONCE .ROUTE ; Start 10/31/18 at 19:10; Stop 10/31/18 at 19:11; Status DC Hydromorphone HCl (Dilaudid) 2 mg STK-MED ONCE .ROUTE ; Start 10/31/18 at 19:27; Stop 10/31/18 at 19:28; Status DC Prochlorperazine Edisylate (Compazine) 10 mg STK-MED ONCE .ROUTE ; Start 10/31/18 at 19:29; Stop 10/31/18 at 19:30; Status DC Lactobacillus Rhamnosus (Culturelle) 1 cap BID PO Last administered on 11/08/18 08:19; Start 11/01/18 at 21:00 Oxycodone/ Acetaminophen (Percocet 5/325) 1 tab PRN Q4HRS PRN PO PAIN Last administered on 11/03/18 20:31; Start 11/01/18 at 17:00; Stop 11/03/18 at 21:21; Status DC Oxycodone/ Acetaminophen (Percocet 10/325) 1 tab PRN Q4HRS PRN PO PAIN Last administered on 11/07/18 20:30; Start 11/03/18 at 21:30 Docusate Sodium (Colace) 100 mg BID PO Last administered on 11/08/18 08:19; Start 11/04/18 at 12:00 Tigecycline 100 mg/Dextrose 100 ml @ 200 mls/hr 1X ONCE IV Last administered on 11/05/18 14:46; Start 11/05/18 at 14:30; Stop 11/05/18 at 14:59; Status DC Tigecycline 50 mg/ Dextrose 50 ml @ 16.6 mls/hr Q12HR IV Last administered on 11/08/18 08:21; Start 11/05/18 at 21:00 Ondansetron HCl (Zofran) 4 mg PRN Q8HRS PRN IV NAUSEA/VOMITING Last administered on 11/08/18 08:20; Start 11/06/18 at 00:30 Amlodipine Besylate (Norvasc) 10 mg QHS PO Last administered on 11/07/18 20:26; Start 11/06/18 at 22:00 Diphenhydramine HCl (Benadryl) 25 mg 1X ONCE PO Last administered on 11/06/18 22:21; Start 11/06/18 at 22:00; Stop 11/06/18 at 22:01; Status DC Diphenhydramine HCl (Benadryl) 25 mg PRN QHS PRN PO INSOMNIA Last administered on 5/6/19at 23:24; Start 11/06/18 at 22:00 Celecoxib (CeleBREX) 200 mg BID PO Last administered on 11/08/18at 08:18; Start 11/07/18 at 09:00 Active Scripts Active Culturelle (Lactobacillus Rhamnosus Gg) 1 Each Cap.sprink 1 Cap PO BID MDD 1 10 Days Percocet 10-325 Mg Tablet (Oxycodone/Acetaminophen) 1 Each Tablet 1 Tab PO PRN Q4HRS PRN MDD 1 Celebrex (Celecoxib) 100 Mg Capsule 200 Mg PO BID MDD 1 Amlodipine Besylate 10 Mg Tablet 10 Mg PO QHS MDD 1 Vitals/I & O Vital Sign - Last 24 Hours 11/07/18 11/07/18 11/07/18 11/07/18 15:00 19:00 20:26 20:30 Temp 97.8 99.5 97.8 99.5 Pulse 75 77 77 Resp 18 18 18 B/P (MAP) 156/125 (135) 153/85 (107) 153/85 Pulse Ox 97 96 O2 Delivery Room Air Room Air Room Air 11/07/18 11/07/18 11/07/18 11/08/18 20:30 21:30 23:00 03:00 Temp 98.6 98.3 98.6 98.3 Pulse 76 90 Resp 20 18 18 B/P (MAP) 158/101 (120) 140/89 (106) Pulse Ox 99 99 O2 Delivery Room Air Room Air Room Air Room Air 11/08/18 11/08/18 07:00 11:00 Temp 98.4 98.1 98.4 98.1 Pulse 80 81 Resp 19 19 B/P (MAP) 143/75 (97) 146/94 (111) Pulse Ox 100 99 O2 Delivery Room Air Room Air Intake and Output 11/07/18 11/07/18 11/08/18 14:59 22:59 06:59 Intake Total 950 ml 480 ml 50 ml Output Total 400 ml 1325 ml Balance 950 ml 80 ml -1275 ml YOSVANY LUNA MD November 08, 2018 13:04
[2018-11-08 15:00] VITALS: BP 139/84
[2018-11-08] MEDS: oxyCODONE/APAP 10/325 1 TAB TABLET PO PRN ×2 (15:33→22:19)
--- NOTE | 2018-11-08 17:24 | NUR ---
Wound care: Patient seen per wound care consult follow up. Patient is s/p debridement on 10/31/[address] Albrecht. Dressing removed and wounds cleansed, assessed, measured, and pictured. There are 3 open incisions from surgical debridement, left dorsal index finger and left sun proximal index finger and left palmar distal and one closed surgical incision to left sun hand. All 4 sites cleansed and covered with Xeroform and Kerlix, secured with stockinette. patient in significant amount of pain during dressing change. Patient had received pain medication prior to dressing change. Guards at bedside. No other wounds noted on skin inspection. Wound care will follow patient.
[2018-11-08 19:00] VITALS: BP 154/99
[2018-11-08] MEDS: amLODIPine BESYLATE 10 MG TABLET PO SCH (21:44)
[2018-11-08] MEDS: diphenhydrAMINE HCL 25 MG CAPSULE PO PRN (22:19)
[2018-11-08 23:00] VITALS: BP 132/75
[2018-11-09 03:00] VITALS: BP 150/108
[2018-11-09 07:00] VITALS: BP 155/126
[2018-11-09] MEDS: CELECOXIB 100 MG CAPSULE. PO SCH (08:26)
[2018-11-09] MEDS: ENOXAPARIN 40 MG/0.4 ML SYRINGE. SQ SCH (08:26)
[2018-11-09] MEDS: LACTOBACILLUS RHAMNOSUS GG 1 CAPSULE. PO SCH (08:26)
[2018-11-09] MEDS: TIGECYCLINE 50 MG in IV DEXTROSE 5% 50 ML IV SCH (08:28)
[2018-11-09] MEDS: DOCUSATE SODIUM 100 MG CAPSULE. PO SCH (08:28)
--- NOTE | 2018-11-09 10:02 | PDOC ---
Infectious Disease Note Subjective: Subjective Pt refuses to take any iv tigacyl due to nausea and vomiting none since this am No fevers has occ loose bm ROS: ROS Negative except for above. Vital Signs: Vital Signs Vital Signs Date Time Temp Pulse Resp B/P (MAP) Pulse Ox O2 Delivery O2 Flow Rate FiO2 11/09/18 07:00 97.7 63 18 155/126 (136) 98 Room Air 97.7 11/08/18 23:19 8.0 Physical Exam: PHYSICAL EXAM GENERAL: alert oriented x3 heent no icterus neck supple LUNGS: Clear. HEART: S1, S2 regular. ABDOMEN: Soft and nontender EXTREMITIES: left hand bandaged, taken down, wounds lt finger, swelling improving, no purulence , dec in rom of the finger SKIN: moist NEUROLOGIC: Responds appropriately RUE-PICC clean Medications: Inpatient Meds: Current Medications Medications (Trade) Dose Ordered Sig/Nancy Start Time Stop Time Status Last Admin Dose Admin Amlodipine Besylate (Norvasc) 10 mg QHS 11/06/18 22:00 11/08/18 21:44 10 MG Ampicillin Sodium/ Sulbactam Sodium 3 gm/Sodium Chloride 100 ml @ 200 mls/hr 1X ONCE 10/31/18 18:15 10/31/18 18:44 DC 10/31/18 18:19 200 MLS/HR Celecoxib (CeleBREX) 200 mg BID 11/07/18 09:00 11/09/18 08:26 200 MG Dexamethasone Sodium Phosphate (Decadron) 4 mg STK-MED ONCE 10/31/18 17:57 10/31/18 17:58 DC Diphenhydramine HCl (Benadryl) 25 mg PRN QHS PRN 11/06/18 22:00 11/08/18 22:19 25 MG Docusate Sodium (Colace) 100 mg BID 11/04/18 12:00 11/08/18 08:19 100 MG Enoxaparin Sodium (Lovenox 40mg Syringe) 40 mg Q24H 11/01/18 09:00 11/09/18 08:26 40 MG Fentanyl Citrate (Fentanyl 2ml Vial) 100 mcg STK-MED ONCE 10/31/18 19:10 10/31/18 19:11 DC Hydromorphone HCl (Dilaudid) 2 mg STK-MED ONCE 10/31/18 19:27 10/31/18 19:28 DC Ketorolac Tromethamine (Toradol For Or Only) 30 mg STK-MED ONCE 10/31/18 17:57 10/31/18 17:58 DC Lactobacillus Rhamnosus (Culturelle) 1 cap BID 11/01/18 21:00 11/09/18 08:26 1 CAP Lidocaine HCl (Lidocaine Pf 2% Vial) 5 ml STK-MED ONCE 10/31/18 16:00 10/31/18 16:02 DC Lidocaine HCl (Xylocaine-Mpf 1% 2ml Vial) 2 ml 1X PRN PRN 10/31/18 13:45 11/01/18 13:44 DC Midazolam HCl (Versed) 2 mg STK-MED ONCE 10/31/18 17:34 10/31/18 17:35 DC Morphine Sulfate (Morphine Sulfate) 1 mg PRN Q10MIN PRN 10/31/18 13:45 11/01/18 13:44 DC Ondansetron HCl (Zofran) 4 mg PRN Q8HRS PRN 11/06/18 00:30 11/08/18 08:20 4 MG Oxycodone/ Acetaminophen (Percocet 10/325) 1 tab PRN Q4HRS PRN 11/03/18 21:30 11/08/18 22:19 1 TAB Oxycodone/ Acetaminophen (Percocet 5/325) 1 tab PRN Q4HRS PRN 11/01/18 17:00 11/03/18 21:21 DC 11/03/18 20:31 1 TAB Piperacillin Sod/ Tazobactam Sod 3.375 gm/Sodium Chloride 50 ml @ 100 mls/hr Q6HRS 11/01/18 00:00 11/05/18 14:18 DC 11/05/18 11:31 100 MLS/HR Prochlorperazine Edisylate (Compazine) 10 mg STK-MED ONCE 10/31/18 19:29 10/31/18 19:30 DC Propofol 20 ml @ As Directed STK-MED ONCE 10/31/18 16:00 10/31/18 16:02 DC Ringer's Solution 1,000 ml @ 30 mls/hr Q24H 10/31/18 13:31 11/01/18 01:30 DC Sodium Chloride 1,000 ml @ 125 mls/hr Q8H 10/31/18 13:18 11/01/18 13:17 DC 10/31/18 15:06 125 MLS/HR Tigecycline 100 mg/Dextrose 100 ml @ 200 mls/hr 1X ONCE 11/05/18 14:30 11/05/18 14:59 DC 11/05/18 14:46 200 MLS/HR Tigecycline 50 mg/ Dextrose 50 ml @ 16.6 mls/hr Q12HR 11/05/18 21:00 11/08/18 08:21 16.6 MLS/HR Labs: Lab Laboratory Tests Test 11/08/18 11:50 White Blood Count 8.5 x10^3/uL (4.0-11.0) Red Blood Count 6.09 x10^6/uL (4.30-5.70) Hemoglobin 16.5 g/dL (13.0-17.5) Hematocrit 49.8 % (39.0-53.0) Mean Corpuscular Volume 82 fL (79-100) Mean Corpuscular Hemoglobin 27 pg (25-35) Mean Corpuscular Hemoglobin Concent 33 g/dL (31-37) Red Cell Distribution Width 14.0 % (11.5-14.5) Platelet Count 306 x10^3/uL (140-400) Neutrophils (%) (Auto) 64 % (31-73) Lymphocytes (%) (Auto) 25 % (24-48) Monocytes (%) (Auto) 8 % (0-9) Eosinophils (%) (Auto) 3 % (0-3) Basophils (%) (Auto) 1 % (0-3) Neutrophils # (Auto) 5.4 x10^3uL (1.8-7.7) Lymphocytes # (Auto) 2.1 x10^3/uL (1.0-4.8) Monocytes # (Auto) 0.6 x10^3/uL (0.0-1.1) Eosinophils # (Auto) 0.3 x10^3/uL (0.0-0.7) Basophils # (Auto) 0.1 x10^3/uL (0.0-0.2) Micro Micro ANAEROBIC RES 1 Final No anaerobic growth in 72 hours. AEROBIC RES 1 Final Staphylococcus aureus y. AEROBIC RES 2 Final Comment Acinetobacter baumannii Scant growth Multi-Drug Resistant Organism AEROBIC RES 3 Final Mixed skin elizabeth 2+ ANTIMICROBIAL SUSCEPTIBILITY Final MICS are expressed in micrograms per mL Antibiotic RSLT#1 RSLT#2 Ampicillin/Sulbactam R =R Cefepime R>=64 Cefotaxime R>=64 Ceftazidime R>=64 Ceftriaxone R>=64 Ciprofloxacin S<=0.5 R>=4 Clindamycin S<=0.25 Erythromycin S<=0.25 Gentamicin S<=0.5 S<=1 Imipenem R>=16 Levofloxacin S =0.25 R>=8 Linezolid S =2 Meropenem I =8 Moxifloxacin S<=0.25 Oxacillin S =0.5 Piperacillin R>=128 Quinupristin/Dalfopristin S<=0.25 Rifampin S<=0.5 Tetracycline S<=1 R>=16 Tobramycin S<=1 Trimethoprim/Sulfa S<=10 R>=320 Vancomycin S =1 Objective: Assessment: Left index finger infection s/p I and D, 10/31. MSSA and MDR Acinetobacter (sensitive only to tobra and gent; I meropenem) Left index finger open distal phalanx communited fracture s/p surgery 10/31 Drug use HTN Nausea and vomiting likely drug induced now improved since pt has refused the tigacyl Plan: Plan of Care DC Tigecycline (since 11/05), Pt is ready for [facility] to [facility] per team Not eligible to get tigacyl at the facility per soc services limited treatment options minocycline and augmentin for 14 days f/u in our clinic in 10 d-2 weeks [phone] Local wound care per ortho Pain management per primary D/w nursing ASHLEY CURIEL MD November 09, 2018 10:02
--- NOTE | 2018-11-09 10:23 | PDOC ---
PROGRESS NOTES Chief Complaint Chief Complaint MDR acetinobacter, - Sensitive to gent and tobra, intermediate to merrem Human bite by self K2 positive Pt refuses to take any iv tigacyl due to nausea and vomiting History of Present Illness History of Present Illness MICS are expressed in micrograms per mL Antibiotic RSLT#1 RSLT#2 Ampicillin/Sulbactam R =R Cefepime R>=64 Cefotaxime R>=64 Ceftazidime R>=64 Ceftriaxone R>=64 Ciprofloxacin S<=0.5 R>=4 Clindamycin S<=0.25 Erythromycin S<=0.25 Gentamicin S<=0.5 S<=1 Imipenem R>=16 Levofloxacin S =0.25 R>=8 Linezolid S =2 Meropenem I =8 Moxifloxacin S<=0.25 Oxacillin S =0.5 Piperacillin R>=128 Quinupristin/Dalfopristin S<=0.25 Rifampin S<=0.5 Tetracycline S<=1 R>=16 Tobramycin S<=1 Trimethoprim/Sulfa S<=10 R>=320 Vancomycin S =1 dw with ID ID would not recommend Gent or tobramycin because of AK I The senior living facilities having difficulty getting tigecil Next option is minocycline or Augmentin Social work still trying to see if they can get the preferred antibiotic patient has a right-sided PICC HE has no complaints otherwise Vitals Vitals Vital Signs Date Time Temp Pulse Resp B/P (MAP) Pulse Ox O2 Delivery O2 Flow Rate FiO2 11/09/18 07:00 97.7 63 18 155/126 (136) 98 Room Air 97.7 11/08/18 23:19 8.0 Physical Exam Physical Exam GENERAL: Sleeping, arouses easily to name LUNGS: Clear. HEART: S1, S2 regular. ABDOMEN: Soft and nontender EXTREMITIES: left hand bandaged, SKIN: moist NEUROLOGIC: Responds appropriately RUE-PICC clean General: Alert, Oriented X3, Cooperative, No acute distress, mild distress Heart: Regular rate, Normal S1, Normal S2, No murmurs Lungs: Clear Abdomen: Normal bowel sounds, Soft, No tenderness Extremities: No clubbing, No cyanosis, Normal pulses Skin: No breakdown, Other (FINGER STILL INFLAMMED, DRESSING REMOVED) Labs LABS Procedure Result ANAEROBIC-AEROBIC CULTURE Final Final report ANAEROBIC RES 1 Final Comment No anaerobic growth in 72 hours. AEROBIC CULT Final Final report AEROBIC RES 1 Final Staphylococcus aureus 2+ Most isolates of Staphylococcus sp. produce a beta- lactamase enzyme rendering them resistant to penicillin. Please contact the laboratory if penicillin is being considered for therapy. AEROBIC RES 2 Final Comment Acinetobacter baumannii Scant growth Multi-Drug Resistant Organism AEROBIC RES 3 Final Mixed skin elizabeth 2+ ANTIMICROBIAL SUSCEPTIBILITY Final Comment CONTINUED ON NEXT PAGE RUN DATE: 11/06/18 PAGE 2 RUN TIME: 1612 [facility] [address] [place] [address] Jarret Vega M.D., [place] SPEC: [id number] PATIENT: BIJU SOTO [id number] (Continued) Procedure Result ANTIMICROBIAL SUSCEPTIBILITY Final (continued) S = Susceptible; I = Intermediate; R = Resistant P = Positive; N = Negative MICS are expressed in micrograms per mL Antibiotic RSLT#1 RSLT#2 RSLT#3 RSLT#4 Ampicillin/Sulbactam R =R Cefepime R>=64 Cefotaxime R>=64 Ceftazidime R>=64 Ceftriaxone R>=64 Ciprofloxacin S<=0.5 R>=4 Clindamycin S<=0.25 Erythromycin S<=0.25 Gentamicin S<=0.5 S<=1 Imipenem R>=16 Levofloxacin S =0.25 R>=8 Linezolid S =2 Meropenem I =8 Moxifloxacin S<=0.25 Oxacillin S =0.5 Piperacillin R>=128 Quinupristin/Dalfopristin S<=0.25 Rifampin S<=0.5 Tetracycline S<=1 R>=16 Tobramycin S<=1 Trimethoprim/Sulfa S<=10 R>=320 Vancomycin S =1 Performed at: [facility] [address], [place], [place] [id number] Insurance Analyst: HOWIE Coker MD, Phone: [phone] GRAM STAIN Final Final report GRAM STAIN RES 1 Final Comment No white blood cells seen. GRAM STAIN RES 2 Final Comment Moderate gram negative rods. Laboratory Tests Test 11/08/18 11:50 White Blood Count 8.5 x10^3/uL (4.0-11.0) Red Blood Count 6.09 x10^6/uL (4.30-5.70) Hemoglobin 16.5 g/dL (13.0-17.5) Hematocrit 49.8 % (39.0-53.0) Mean Corpuscular Volume 82 fL (79-100) Mean Corpuscular Hemoglobin 27 pg (25-35) Mean Corpuscular Hemoglobin Concent 33 g/dL (31-37) Red Cell Distribution Width 14.0 % (11.5-14.5) Platelet Count 306 x10^3/uL (140-400) Neutrophils (%) (Auto) 64 % (31-73) Lymphocytes (%) (Auto) 25 % (24-48) Monocytes (%) (Auto) 8 % (0-9) Eosinophils (%) (Auto) 3 % (0-3) Basophils (%) (Auto) 1 % (0-3) Neutrophils # (Auto) 5.4 x10^3uL (1.8-7.7) Lymphocytes # (Auto) 2.1 x10^3/uL (1.0-4.8) Monocytes # (Auto) 0.6 x10^3/uL (0.0-1.1) Eosinophils # (Auto) 0.3 x10^3/uL (0.0-0.7) Basophils # (Auto) 0.1 x10^3/uL (0.0-0.2) Assessment and Plan Assessmemt and Plan Problems Medical Problems: (1) Finger fracture Status: Acute (2) Tenosynovitis Status: Acute Comment Review of Relevant I have reviewed the following items dev (where applicable) has been applied. Labs Laboratory Tests Test 11/08/18 11:50 White Blood Count 8.5 x10^3/uL (4.0-11.0) Red Blood Count 6.09 x10^6/uL (4.30-5.70) Hemoglobin 16.5 g/dL (13.0-17.5) Hematocrit 49.8 % (39.0-53.0) Mean Corpuscular Volume 82 fL (79-100) Mean Corpuscular Hemoglobin 27 pg (25-35) Mean Corpuscular Hemoglobin Concent 33 g/dL (31-37) Red Cell Distribution Width 14.0 % (11.5-14.5) Platelet Count 306 x10^3/uL (140-400) Neutrophils (%) (Auto) 64 % (31-73) Lymphocytes (%) (Auto) 25 % (24-48) Monocytes (%) (Auto) 8 % (0-9) Eosinophils (%) (Auto) 3 % (0-3) Basophils (%) (Auto) 1 % (0-3) Neutrophils # (Auto) 5.4 x10^3uL (1.8-7.7) Lymphocytes # (Auto) 2.1 x10^3/uL (1.0-4.8) Monocytes # (Auto) 0.6 x10^3/uL (0.0-1.1) Eosinophils # (Auto) 0.3 x10^3/uL (0.0-0.7) Basophils # (Auto) 0.1 x10^3/uL (0.0-0.2) Laboratory Tests Test 11/08/18 11:50 White Blood Count 8.5 x10^3/uL (4.0-11.0) Red Blood Count 6.09 x10^6/uL (4.30-5.70) Hemoglobin 16.5 g/dL (13.0-17.5) Hematocrit 49.8 % (39.0-53.0) Mean Corpuscular Volume 82 fL (79-100) Mean Corpuscular Hemoglobin 27 pg (25-35) Mean Corpuscular Hemoglobin Concent 33 g/dL (31-37) Red Cell Distribution Width 14.0 % (11.5-14.5) Platelet Count 306 x10^3/uL (140-400) Neutrophils (%) (Auto) 64 % (31-73) Lymphocytes (%) (Auto) 25 % (24-48) Monocytes (%) (Auto) 8 % (0-9) Eosinophils (%) (Auto) 3 % (0-3) Basophils (%) (Auto) 1 % (0-3) Neutrophils # (Auto) 5.4 x10^3uL (1.8-7.7) Lymphocytes # (Auto) 2.1 x10^3/uL (1.0-4.8) Monocytes # (Auto) 0.6 x10^3/uL (0.0-1.1) Eosinophils # (Auto) 0.3 x10^3/uL (0.0-0.7) Basophils # (Auto) 0.1 x10^3/uL (0.0-0.2) Microbiology 10/31/18 Blood Culture - Final, Complete NO GROWTH AFTER 5 DAYS 10/31/18 Anaerobic/Aerobic Culture - Final, Complete 10/31/18 Anaerobic Culture Result 1 (NANETTE) - Final, Complete 10/31/18 Aerobic Culture - Final, Complete 10/31/18 Aerobic Culture Result 1 (NANETTE) - Final, Complete 10/31/18 Aerobic Culture Result 2 (NANETTE) - Final, Complete 10/31/18 Aerobic Culture Result 3 (NANETTE) - Final, Complete 10/31/18 Antimicrobic Susceptibility - Final, Complete 10/31/18 Gram Stain - Final, Complete 10/31/18 Gram Stain Result 1 (NANETTE) - Final, Complete 10/31/18 Gram Stain Result 2 (NANETTE) - Final, Complete 10/31/18 Gram Stain Result 3 (NANETTE) - Final, Complete Medications Current Medications Sodium Chloride 1,000 ml @ 1,000 mls/hr 1X ONCE IV Last administered on 10/04 03/23at 12:29; Start 10/31/18 at 12:00; Stop 10/31/18 at 12:59; Status DC Fentanyl Citrate (Fentanyl 2ml Vial) 50 mcg 1X ONCE IV Last administered on 10/31/18at 12:30; Start 10/31/18 at 12:00; Stop 10/31/18 at 12:01; Status DC Ampicillin Sodium/ Sulbactam Sodium 3 gm/Sodium Chloride 100 ml @ 200 mls/hr 1X ONCE IV Last administered on 10/31/18at 14:05; Start 10/31/18 at 13:30; Stop 10/31/18 at 13:59; Status DC Ondansetron HCl (Zofran) 4 mg PRN Q8HRS PRN IV NAUSEA/VOMITING; Start 10/31/18 at 13:30; Stop 11/01/18 at 13:29; Status DC Morphine Sulfate (Morphine Sulfate) 4 mg PRN Q2HR PRN IV MODERATE PAIN Last administered on 11/01/18at 06:04; Start 10/31/18 at 13:30; Stop 11/01/18 at 13:29; Status DC Fentanyl Citrate (Fentanyl 2ml Vial) 50 mcg PRN Q1HR PRN IV SEVERE PAIN; Start 10/31/18 at 13:30; Stop 11/01/18 at 13:29; Status DC Sodium Chloride 1,000 ml @ 125 mls/hr Q8H IV Last administered on 10/31/18at 15:06; Start 10/31/18 at 13:18; Stop 11/01/18 at 13:17; Status DC Ondansetron HCl (Zofran) 4 mg PRN Q6HRS PRN IV NAUSEA/VOMITING; Start 10/31/18 at 13:45; Stop 11/01/18 at 13:44; Status UNV Fentanyl Citrate (Fentanyl 2ml Vial) 25 mcg PRN Q5MIN PRN IV MILD PAIN; Start 10/31/18 at 13:45; Stop 11/01/18 at 13:44; Status UNV Fentanyl Citrate (Fentanyl 2ml Vial) 50 mcg PRN Q5MIN PRN IV MODERATE TO SEVERE PAIN; Start 10/31/18 at 13:45; Stop 11/01/18 at 13:44; Status UNV Morphine Sulfate (Morphine Sulfate) 1 mg PRN Q10MIN PRN IV SEVERE PAIN; Start 10/31/18 at 13:45; Stop 11/01/18 at 13:44; Status UNV Ringer's Solution 1,000 ml @ 30 mls/hr Q24H IV ; Start 10/31/18 at 13:31; Stop 11/01/18 at 01:30; Status UNV Lidocaine HCl (Xylocaine-Mpf 1% 2ml Vial) 2 ml 1X PRN PRN ID IV START; Start 10/31/18 at 13:45; Stop 11/01/18 at 13:44; Status UNV Hydromorphone HCl (Dilaudid) 0.5 mg PRN Q10MIN PRN IV SEV PAIN, Second choice; Start 10/31/18 at 13:45; Stop 11/01/18 at 13:44; Status UNV Prochlorperazine Edisylate (Compazine) 5 mg PACU PRN PRN IV NAUSEA, MRX1; Start 10/31/18 at 13:45; Stop 11/01/18 at 13:44; Status UNV Ondansetron HCl (Zofran) 4 mg PRN Q6HRS PRN IV NAUSEA/VOMITING; Start 10/31/18 at 13:45; Stop 11/01/18 at 13:44; Status DC Fentanyl Citrate (Fentanyl 2ml Vial) 25 mcg PRN Q5MIN PRN IV MILD PAIN; Start 10/31/18 at 13:45; Stop 11/01/18 at 13:44; Status DC Fentanyl Citrate (Fentanyl 2ml Vial) 50 mcg PRN Q5MIN PRN IV MODERATE TO SEVERE PAIN Last administered on 10/31/18at 19:24; Start 10/31/18 at 13:45; Stop 11/01/18 at 13:44; Status DC Morphine Sulfate (Morphine Sulfate) 1 mg PRN Q10MIN PRN IV SEVERE PAIN; Start 10/31/18 at 13:45; Stop 11/01/18 at 13:44; Status DC Ringer's Solution 1,000 ml @ 30 mls/hr Q24H IV ; Start 10/31/18 at 13:31; Stop 11/01/18 at 01:30; Status DC Lidocaine HCl (Xylocaine-Mpf 1% 2ml Vial) 2 ml 1X PRN PRN ID IV START; Start 10/31/18 at 13:45; Stop 11/01/18 at 13:44; Status DC Hydromorphone HCl (Dilaudid) 0.5 mg PRN Q10MIN PRN IV SEV PAIN, Second choice Last administered on 10/31/18at 20:03; Start 10/31/18 at 13:45; Stop 11/01/18 at 13:44; Status DC Prochlorperazine Edisylate (Compazine) 5 mg PACU PRN PRN IV NAUSEA, MRX1 Last administered on 10/31/18at 19:44; Start 10/31/18 at 13:45; Stop 11/01/18 at 13:44; Status DC Propofol 20 ml @ As Directed STK-MED ONCE IV ; Start 10/31/18 at 16:00; Stop 10/31/18 at 16:02; Status DC Lidocaine HCl (Lidocaine Pf 2% Vial) 5 ml STK-MED ONCE .ROUTE ; Start 10/31/18 at 16:00; Stop 10/31/18 at 16:02; Status DC Fentanyl Citrate (Fentanyl 2ml Vial) 100 mcg STK-MED ONCE .ROUTE ; Start 10/31/18 at 16:01; Stop 10/31/18 at 16:04; Status DC Midazolam HCl (Versed) 2 mg STK-MED ONCE .ROUTE ; Start 10/31/18 at 17:34; Stop 10/31/18 at 17:35; Status DC Ondansetron HCl (Zofran) 4 mg STK-MED ONCE .ROUTE ; Start 10/31/18 at 17:57; Stop 10/31/18 at 17:58; Status DC Ketorolac Tromethamine (Toradol For Or Only) 30 mg STK-MED ONCE INJ ; Start 10/31/18 at 17:57; Stop 10/31/18 at 17:58; Status DC Dexamethasone Sodium Phosphate (Decadron) 4 mg STK-MED ONCE .ROUTE ; Start 10/31/18 at 17:57; Stop 10/31/18 at 17:58; Status DC Ampicillin Sodium/ Sulbactam Sodium 3 gm/Sodium Chloride 100 ml @ 200 mls/hr 1X ONCE IV Last administered on 10/31/18at 18:19; Start 10/31/18 at 18:15; Stop 10/31/18 at 18:44; Status DC Piperacillin Sod/ Tazobactam Sod 3.375 gm/Sodium Chloride 50 ml @ 100 mls/hr Q6HRS IV ; Start 10/31/18 at 18:30; Status Cancel Enoxaparin Sodium (Lovenox 40mg Syringe) 40 mg Q24H SQ Last administered on 11/09/18at 08:26; Start 11/01/18 at 09:00 Fentanyl Citrate (Fentanyl 2ml Vial) 100 mcg STK-MED ONCE .ROUTE ; Start 10/31/18 at 18:21; Stop 10/31/18 at 18:22; Status DC Piperacillin Sod/ Tazobactam Sod 3.375 gm/Sodium Chloride 50 ml @ 100 mls/hr Q6HRS IV Last administered on 11/05/18at 11:31; Start 11/01/18 at 00:00; Stop 11/05/18 at 14:18; Status DC Fentanyl Citrate (Fentanyl 2ml Vial) 100 mcg STK-MED ONCE .ROUTE ; Start 10/31/18 at 19:10; Stop 10/31/18 at 19:11; Status DC Hydromorphone HCl (Dilaudid) 2 mg STK-MED ONCE .ROUTE ; Start 10/31/18 at 19:27; Stop 10/31/18 at 19:28; Status DC Prochlorperazine Edisylate (Compazine) 10 mg STK-MED ONCE .ROUTE ; Start 10/31/18 at 19:29; Stop 10/31/18 at 19:30; Status DC Lactobacillus Rhamnosus (Culturelle) 1 cap BID PO Last administered on 11/09/18 08:26; Start 11/01/18 at 21:00 Oxycodone/ Acetaminophen (Percocet 5/325) 1 tab PRN Q4HRS PRN PO PAIN Last administered on 11/03/18 20:31; Start 11/01/18 at 17:00; Stop 11/03/18 at 21:21; Status DC Oxycodone/ Acetaminophen (Percocet 10/325) 1 tab PRN Q4HRS PRN PO PAIN Last administered on 11/08/18 22:19; Start 11/03/18 at 21:30 Docusate Sodium (Colace) 100 mg BID PO Last administered on 11/08/18 08:19; Start 11/04/18 at 12:00 Tigecycline 100 mg/Dextrose 100 ml @ 200 mls/hr 1X ONCE IV Last administered on 11/05/18 14:46; Start 11/05/18 at 14:30; Stop 11/05/18 at 14:59; Status DC Tigecycline 50 mg/ Dextrose 50 ml @ 16.6 mls/hr Q12HR IV Last administered on 11/08/18 08:21; Start 11/05/18 at 21:00 Ondansetron HCl (Zofran) 4 mg PRN Q8HRS PRN IV NAUSEA/VOMITING Last administered on 11/08/18 08:20; Start 11/06/18 at 00:30 Amlodipine Besylate (Norvasc) 10 mg QHS PO Last administered on 11/08/18 21:44; Start 11/06/18 at 22:00 Diphenhydramine HCl (Benadryl) 25 mg 1X ONCE PO Last administered on 11/06/18 22:21; Start 11/06/18 at 22:00; Stop 11/06/18 at 22:01; Status DC Diphenhydramine HCl (Benadryl) 25 mg PRN QHS PRN PO INSOMNIA Last administered on 11/08/18 22:19; Start 11/06/18 at 22:00 Celecoxib (CeleBREX) 200 mg BID PO Last administered on 11/09/18at 08:26; Start 11/07/18 at 09:00 Active Scripts Active Culturelle (Lactobacillus Rhamnosus Gg) 1 Each Cap.sprink 1 Cap PO BID MDD 1 10 Days Percocet 10-325 Mg Tablet (Oxycodone/Acetaminophen) 1 Each Tablet 1 Tab PO PRN Q4HRS PRN MDD 1 Celebrex (Celecoxib) 100 Mg Capsule 200 Mg PO BID MDD 1 Amlodipine Besylate 10 Mg Tablet 10 Mg PO QHS MDD 1 Vitals/I & O Vital Sign - Last 24 Hours 11/08/18 11/08/18 11/08/18 11/08/18 11:00 15:00 15:33 16:33 Temp 98.1 98.5 98.1 98.5 Pulse 81 69 Resp 19 19 20 20 B/P (MAP) 146/94 (111) 139/84 (102) Pulse Ox 99 100 99 O2 Delivery Room Air Room Air Room Air 11/08/18 11/08/18 11/08/18 11/08/18 19:00 20:00 21:44 22:19 Temp 99.0 99.0 Pulse 82 82 Resp 19 B/P (MAP) 154/99 (117) 154/99 Pulse Ox 99 99 O2 Delivery Room Air Room Air Room Air O2 Flow Rate 8.0 11/08/18 11/08/18 11/09/18 11/09/18 23:00 23:19 03:00 07:00 Temp 98.6 98.6 97.7 98.6 98.6 97.7 Pulse 75 84 63 Resp 18 B/P (MAP) 132/75 (94) 150/108 (122) 155/126 (136) Pulse Ox 97 99 100 98 O2 Delivery Room Air Room Air Room Air Room Air O2 Flow Rate 8.0 Intake and Output 11/08/18 11/08/18 11/09/18 15:00 23:00 07:00 Intake Total 1250 ml 1220 ml 700 ml Output Total 350 ml 1850 ml Balance 1250 ml 870 ml -1150 ml RBEANNA ROCHE MD November 09, 2018 10:23
[2018-11-09] MEDS: oxyCODONE/APAP 10/325 1 TAB TABLET PO PRN (10:47)
[2018-11-09 11:00] VITALS: BP 186/112
--- NOTE | 2018-11-09 13:00 | NUR ---
Patient was discharged from the facility at 1234 with his discharge paperwork and belongings which were handled by the guards which were accompanying him. The discharge information was discussed with the patient and he had not questions regarding the information. The patient was removed from the unit in a wheelchair by two guards and the guard from transportation.
[2018-11-09] MEDS ORDERED: AMOXICILLIN/K CLAV 875/125MG TABLET. PO SCH (21:00)
[2018-11-09] MEDS ORDERED: MINOCYCLINE 100 MG CAPSULE PO SCH (21:00)
== END 2018-11-09 12:34 | disposition home or self-care (01) | DRG 853 ==
LOC: EEVIPCON 11:20 → ER 11:20 → 6 SOUTH 13:13 → 5 NORTH 11-01 21:36
PROVIDERS: ADMIT Family Medicine; ATTEND Family Medicine
PROC: 0L980ZX Drainage of Left Hand Tendon, Open Approach, Diagnostic (ICD-10-PCS; 2018-10-31)
PROC: 0PDV0ZZ Extraction of Left Finger Phalanx, Open Approach (ICD-10-PCS; principal; 2018-10-31 16:00)
DX: A41.9 Sepsis, unspecified organism (principal); G92 Toxic encephalopathy; S62.631B Displaced fracture of distal phalanx of left index finger, initial encounter for open fracture; L03.90 Cellulitis, unspecified; F19.90 Other psychoactive substance use, unspecified, uncomplicated; A49.01 Methicillin susceptible Staphylococcus aureus infection, unspecified site; M65.9 Synovitis and tenosynovitis, unspecified; I10 Essential (primary) hypertension; Z16.24 Resistance to multiple antibiotics; F16.90 Hallucinogen use, unspecified, uncomplicated; J45.909 Unspecified asthma, uncomplicated; Y93.89 Activity, other specified; Y92.89 Other specified places as the place of occurrence of the external cause; Y99.8 Other external cause status; Z87.891 Personal history of nicotine dependence; Z82.49 Family history of ischemic heart disease and other diseases of the circulatory system; Z81.1 Family history of alcohol abuse and dependence; Z81.3 Family history of other psychoactive substance abuse and dependence; X83.8XXA Intentional self-harm by other specified means, initial encounter
CPT/HCPCS: 36415; 71045; 73130; 80048; 80053; 85025; 87040; 87071; 87075; 87641; 96365; 96367; 96375; A7015; J0295; J0780; J1100; J1170; J1650; J1885; J2001; J2250; J2270; J2405; J2543; J2704; J3010; J3243; J7030; J7120; Q0163; 99285-25; A4461